=== PATIENT | female | born 1990 ===

== ENCOUNTER 2017-01-14 00:57 | Emergency (ER) | payer MEDICAID ==
[2017-01-14 00:58] VITALS: BMI 44.6
[2017-01-14 01:05] VITALS: RESP 18
[2017-01-14] MEDS ORDERED: Amoxicillin-Clav 875-125 mg Tab PO STA (01:11)
--- NOTE | 2017-01-14 01:15 | ED PDOC ---
Arrival/HPI - General Chief Complaint: Dental Pain Time Seen by Provider: 01/14/17 01:10 Historian: Patient - History of Present Illness Narrative History of Present Illness (Text): 01/14/17 01:12 Lauren Vela is a 26 year old female, with a history of asthma, presents to the emergency department complaining of 1 day duration of right upper toothache with right sided facial swelling. Patient does not have an appointment with dentist until next week. Denies any fever, chills, headache, dizziness, nausea, vomiting, urinary symptoms, or any other complaints at this time. Time/Duration: Other (1 day ) Symptom Onset: Gradual Symptom Course: Worsening Severity Level: Mild Activities at Onset: Light Past Medical History - Provider Review Nursing Documentation Reviewed: Yes - Past History Past History: Non-Contributing - Infectious Disease Hx of Infectious Diseases: None - Tetanus Immunization Tetanus Immunization: Unknown - Cardiac Hx Cardiac Disorders: No - Pulmonary Hx Respiratory Disorders: Yes Hx Asthma: Yes Hx Bronchitis: Yes - Neurological Hx Neurological Disorder: Yes Hx Migraine: Yes - HEENT Hx HEENT Disorder: No - Renal Hx Renal Disorder: No - Endocrine/Metabolic Hx Endocrine Disorders: No - Hematological/Oncological Hx Blood Disorders: No - Integumentary Hx Dermatological Disorder: No - Musculoskeletal/Rheumatological Hx Musculoskeletal Disorders: Yes Hx Back Pain: Yes Hx Falls: No - Gastrointestinal Hx Gastrointestinal Disorders: Yes (gallstones) Hx Gall Bladder Disease: Yes (CHOLECYSTECTOMY) - Genitourinary/Gynecological Hx Genitourinary Disorders: Yes (fibroid uterus) - Psychiatric Hx Psychophysiologic Disorder: No Hx Substance Use: No - Past Surgical History Past Surgical History: No Previous - Surgical History Hx Cholecystectomy: Yes (within the last 5 years) - Anesthesia Hx Anesthesia: Yes Hx Anesthesia Reactions: No Hx Malignant Hyperthermia: No - Suicidal Assessment Feels Threatened In Home Enviroment: No Family/Social History - Physician Review Nursing Documentation Reviewed: Yes Family/Social History: No Known Family HX Smoking Status: Light Smoker < 10 Cigarettes Daily Hx Alcohol Use: Yes Frequency of alcohol use: Socially Hx Substance Use: No Hx Substance Use Treatment: No Allergies/Home Meds Allergies/Adverse Reactions: Allergies No Known Allergies Allergy (Verified 09/04/16 18:34) Home Medications: Home Meds Medication Instructions Recorded Confirmed Fluticasone/Salmeterol 250/50 1 inh INH BID 09/04/16 09/04/16 [Advair Diskus 250/50] Physical Exam - Physical Exam Narrative Physical Exam (Text): - Review of Systems Constitutional: Normal. absent: Fatigue, Weight Change, Fevers Eyes: Normal ENT: Right upper toothache, and right facial swelling. Respiratory: Normal absent: SOB, Cough, Sputum Cardiovascular: Normal absent: Chest pain, Palpitations, Syncope Gastrointestinal: Normal absent: Abdominal pain, Diarrhea, Nausea, Vomiting Genitourinary: Normal. absent: Dysuria, Frequency, Hematuria Musculoskeletal: Normal. absent: Arthralgias, Back Pain, Neck Pain Skin: Normal Neurological: Normal absent: Focal Weakness Endocrine: Normal Hemo/Lymphatic: Normal Psychiatric: Normal - Physical exam Patient appears age appropriate, speaking full sentences without difficulty - Systems Exam Head: Present: Atraumatic, Normocephalic, Pupils: Present: PERRL Extraocular Muscles: Present: EOMI Conjunctiva: Present: Normal Mouth: Present: Moist Mucous Membranes. Right upper molar tenderness to palpation. Right facial swelling. No gum inflammation. No Trismus. Neck: Present: Normal Range of Motion. Supple No: MIDLINE TENDERNESS, Paraspinal Tenderness Respiratory/Chest: Present: Clear to Auscultation, Good Air Exchange. No: Respiratory Distress, Accessory Muscle Use, Tachypnic Cardiovascular: Present: Regular Rate and Rhythm, Normal S1, S2, Peripheral Pulses Present. No: Murmurs Abdomen: Present: Normal Bowel Sounds, No: Tenderness, Peritoneal Signs, Rebound, Guarding, Distention Back: Present: Normal Inspection. No: Midline Tenderness, Paraspinal Tenderness Upper Extremity: Present: Normal Inspection. No: Cyanosis, Edema Lower Extremity: Present: Normal Inspection. No: Edema Neurological: Present: GCS=15, Speech Normal, cranial nerves II through XII fully intact with no cerebellar abnormality, neuro-sensory fully intact. No focal neurological deficits. Skin: Present: Warm, Dry, Normal Color. No: Rashes Lymphatic: Present: OX3, NI, NC Psychiatric: Present: Alert, Oriented x 3, Normal Insight, Normal Concentration Vital Signs Reviewed: Yes Vital Signs Temp Pulse Resp BP Pulse Ox 01/14/17 04:07 98.0 F 85 18 107/60 99 01/14/17 01:05 99 F 88 18 144/74 98 Temperature: Afebrile Blood Pressure: Normal Pulse: Regular Respiratory Rate: Normal Appearance: Positive for: Well-Appearing, Non-Toxic, Comfortable Pain Distress: None Mental Status: Positive for: Alert and Oriented X 3 Medical Decision Making ED Course and Treatment: 01/14/17 01:23 Impression: A 26 year old female who presents to the emergency department complaining of 1 day duration right upper toothache and right facial swelling. Differential Diagnosis included but are not limited to: Facial abscess Plan: -- CT Maxillofacial -- Labs -- Augmentin -- Toradol -- Reassess and disposition Progress Notes: 01/14/17 03:43 CT interpreted by: Juan Huerta MD IMPRESSION: Small periodontal abscess. Sinus disease. 01/14/17 04:04 Case discussed with [facility]. 01/14/17 04:[address] Martinez from [facility] in detail, including PE, lab, imaging findings. States pt can f/u in [facility] [place] at 8[place] pt's mom states she can drive her pt states she feels comfortable being dc'd home with outpatient f/u pt states her pain is better Pt states she understands to return to the ER right away for new or worsening symptoms or for inability to f/u with PMD or specialist as instructed. Patient states that she fully agrees with and understands discharge instructions. States that she agrees with the plan and disposition. Verbalized and repeated discharge instructions and plan. I have given the patient opportunity to ask any additional questions. - Lab Interpretations Lab Results: 01/14/17 01:25 01/14/17 01:25 Lab Results 01/14/17 01:25: Sodium 136, Potassium 4.0, Chloride 102, Carbon Dioxide 28, Anion Gap 10, BUN 10, Creatinine 0.6, Est GFR ( Amer) > 60, Est GFR (Non- Af Amer) > 60, Random Glucose 105, Calcium 9.0, Total Bilirubin 0.5, AST 18, ALT 30, Alkaline Phosphatase 74, Total Protein 7.7, Albumin 3.9, Globulin 3.8, Albumin/Globulin Ratio 1.0 L 01/14/17 01:25: PT 11.0, INR 1.02, APTT 31.4 H 01/14/17 01:25: WBC 11.9 H, RBC 4.99, Hgb 13.6, Hct 40.6, MCV 81.4, MCH 27.3, MCHC 33.5, RDW 13.8, Plt Count 337, MPV 8.7, Gran % 65.1, Lymph % (Auto) 25.9, [place] % (Auto) 7.1 H, Eos % (Auto) 1.6, Baso % (Auto) 0.3, Gran # 7.74 H, Lymph # 3.1, [place]ountain # 0.8 H, Eos # 0.2, Baso # 0.03 - RAD Interpretation Narrative RAD Interpretations (Text): EXAM: CT Maxillofacial With Intravenous Contrast FINDINGS: Bones/joints: No fracture. No dislocation. Soft tissues: Moderate to extensive soft tissue swelling/stranding about RIGHT maxilla. Apparent 1.0 x 0.3 x 0.7 cm peripherally enhancing fluid collection along RIGHT maxilla ( axial image 76, coronal image 51). Lymph nodes: Shotty cervical lymph nodes, likely reactive. Orbits: Unremarkable as visualized. Sinuses: Extensive mucosal thickening of RIGHT maxillary sinus. Mild mucosal thickening of LEFT maxillary sinus. Moderate mucosal thickening of ethmoid sinuses. Dental: Dental caries RIGHT maxillary molar, LEFT maxillary molar. IMPRESSION: 1. Small periodontal abscess. 2. Sinus disease. 3. Incidental/non-acute findings are described above Radiology Orders: 01/14/17 01:11 MAXILLOFACIAL W/CONTRAST [CT] Stat Barge Pilot: Radiologist - Medication Orders Current Medication Orders: Sodium Chloride (Sodium Chloride 0.9%) 1,000 mls @ 1,000 mls/hr IV .Q1H STA Stop: 01/14/17 05:02 Last Admin: 01/14/17 04:09 Dose: 1,000 mls/hr Discontinued Medications Amoxicillin/Clavulanate Potassium (Augmentin 875 Mg-125 Mg Tab) 1 tab PO STAT STA PRN Reason: Protocol Stop: 01/14/17 01:12 Last Admin: 01/14/17 01:59 Dose: 1 tab Iohexol (Omnipaque 350 100 Ml) Confirm Administered Dose 350 mg .ROUTE .STK-MED ONE Stop: 01/14/17 02:21 Ketorolac Tromethamine (Toradol) 30 mg IVP STAT STA Stop: 01/14/17 01:12 Last Admin: 01/14/17 01:36 Dose: 30 mg - Scribe Statement The provider has reviewed the documentation as recorded by the Scribe Gretta Muthuraman Provider Kassie Attestation: All medical record entries made by the Kassie were at my direction and personally dictated by me. I have reviewed the chart and agree that the record accurately reflects my personal performance of the history, physical exam, medical decision making, and the department course for this patient. I have also personally directed, reviewed, and agree with the discharge instructions and disposition. Disposition/Present on Arrival - Present on Arrival Any Indicators Present on Arrival: No History of DVT/PE: No History of Uncontrolled Diabetes: No Urinary Catheter: No History of Decub. Ulcer: No History Surgical Site Infection Following: None - Disposition Have Diagnosis and Disposition been Completed?: Yes Diagnosis: Periodontal abscess Disposition: HOME/ ROUTINE Disposition Time: 04:30 Patient Plan: Discharge Condition: GOOD Discharge Instructions (ExitCare): Dental Abscess (ED) Additional Instructions: PLEASE REPORT TO [facility] MAIN ENTRANCE AT 8AM TODAY AND ASK TO BE DIRECTED TO OROMAXILOFACIAL (OMFS) CLINIC RETURN TO THE ER RIGHT AWAY FOR NEW OR WORSENING SYMPTOMS OR IF YOU CANNOT FOLLOW UP INSTRUCTED Prescriptions: Amoxicillin/Clavulanate [Augmentin 875 MG-125 MG] 1 tab PO BID #13 tab oxyCODONE/Acetaminophen [Percocet 5/325 mg Tab] 1 ea PO BID PRN #5 tab PRN Reason: Pain, Moderate (4-7)
[2017-01-14 01:42] LABS: ADD MANUAL DIFF? NO
[2017-01-14 01:46] LABS: BASO # 0.03 K/mm3 (0.0-2.0); BASO % 0.3 % (0.0-3.0); EOS # 0.2 (0.0-0.7); EOS % 1.6 % (1.5-5.0); GRAN # 7.74 (1.4-6.5); GRAN % 65.1 % (50.0-68.0); HEMATOCRIT 40.6 % (36.0-48.0); LYMPH # 3.1 (1.2-3.4); LYMPH % 25.9 % (22.0-35.0); MEAN CELL VOLUME 81.4 fL (80.0-105.0); MEAN CORPUSCULAR HEMOGLOBIN 27.3 pg (25.0-35.0); MEAN CORPUSCULAR HGB CONC 33.5 g/dl (31.0-37.0); MEAN PLATELET VOLUME 8.7 fl (7.0-11.0); MONO # 0.8 (0.1-0.6); MONO % 7.1 % (1.0-6.0); PLATELET COUNT 337 10^3/uL (120.0-450.0); RED CELL DISTRIBUTION WIDTH 13.8 % (11.5-14.5); WHITE BLOOD COUNT 11.9 10^3/ul (4.5-11.0)
[2017-01-14 01:53] LABS: INR 1.02 (0.93-1.08); PARTIAL THROMBOPLASTIN TIME 31.4 Seconds (23.7-30.8)
[2017-01-14 01:58] LABS: ALKALINE PHOSPHATASE 74 U/L (38-133); ALT/SGPT 30 U/L (7-56); AST/SGOT 18 U/L (15-39); BILIRUBIN,TOTAL 0.5 mg/dL (0.2-1.3); BLOOD UREA NITROGEN 10 mg/dL (7-21); CARBON DIOXIDE 28 mmol/L (21-33); CHLORIDE 102 mmol/L (98-107); GFR AFRICAN-AMERICAN > 60; GLUCOSE,RANDOM 105 mg/dL (70-110); SODIUM 136 mmol/L (132-148); TOTAL PROTEIN 7.7 g/dL (5.8-8.3)
[2017-01-14] MEDS ORDERED: Iohexol 350 MG/100 ML VIAL ONE (02:20)
--- NOTE | 2017-01-14 03:14 | CT ---
EXAM: CT Maxillofacial With Intravenous Contrast CLINICAL HISTORY: 26 years old, female; Pain; Jaw pain; Additional info: Dental pain, r. TECHNIQUE: Axial computed tomography images of the face with intravenous contrast. This CT exam was performed using one or more of the following dose reduction techniques: automated exposure control, adjustment of the mA and/or kV according to patient size, and/or use of iterative reconstruction technique. Coronal and sagittal reformatted images were created and reviewed. CONTRAST: 96 mL of OMNI 350 administered intravenously. COMPARISON: CT - HEAD W/O CONTRAST 03/29/2016 10:28:39 PM FINDINGS: Bones/joints: No fracture. No dislocation. Soft tissues: Moderate to extensive soft tissue swelling/stranding about RIGHT maxilla. Apparent 1.0 x 0.3 x 0.7 cm peripherally enhancing fluid collection along RIGHT maxilla (axial image 76, coronal image 51). Lymph nodes: Shotty cervical lymph nodes, likely reactive. Orbits: Unremarkable as visualized. Sinuses: Extensive mucosal thickening of RIGHT maxillary sinus. Mild mucosal thickening of LEFT maxillary sinus. Moderate mucosal thickening of ethmoid sinuses. Dental: Dental caries RIGHT maxillary molar, LEFT maxillary molar. IMPRESSION: 1. Small periodontal abscess. 2. Sinus disease. 3. Incidental/non-acute findings are described above.
[2017-01-14 04:08] VITALS: BP 107/60; PULSE 85; TEMP 98; O2SAT 99
[2017-01-14] MEDS: Sodium Chloride 0.9% 1,000 ML IV STA ×2 (04:09→04:54)
== END 2017-01-14 04:55 | disposition home or self-care (01) ==
LOC: ED 00:57
DX: K05.219 Aggressive periodontitis, localized, unspecified severity (principal); Z72.0 Tobacco use
CPT/HCPCS: 70488; 80053; 85025; 85610; 85730; 96361; 96374; 99283; J1885; J7040; Q9967

== ENCOUNTER 2017-08-10 15:40 | Emergency (ER) | payer OTHER, SELFPAY ==
[2017-08-10 15:41] VITALS: BMI 44.6
[2017-08-10] MEDS ORDERED: Sodium Chloride 0.9% 1,000 ML IV STA (16:26)
[2017-08-10] MEDS ORDERED: Albuterol-Ipratrop 3 mg / 0.5 (3 ml) UD IH STA ×2 (16:28→17:47)
--- NOTE | 2017-08-10 16:32 | ED PDOC ---
Arrival/HPI - General Chief Complaint: Flu-like Symptoms Time Seen by Provider: 08/10/17 15:47 Historian: Patient - History of Present Illness Narrative History of Present Illness (Text): 08/10/17 16:29 27 y/o female, no significant pmh, nkda, chronic smoker, c/o cough/fever/ vomiting started yesterday. Pt. stated that she started with coughing yesterday with bodyache, feels feverish with no objective temperature and noted to be febrile 100.9F in the ER with no antipyretic taken, stated that she had couple episodes of vomiting after forceful vomiting but no abdominal pain, no night sweat, no dizziness, no change in vision, no palpitation, no other medical or psychological complaints, no neck stiffness, no headache, no recent traveling or use of any antibiotic for the past 4 weeks, no other medical or psychological complaints. Past Medical History - Provider Review Nursing Documentation Reviewed: Yes - Past History Past History: Non-Contributing - Infectious Disease Hx of Infectious Diseases: None - Tetanus Immunization Tetanus Immunization: Unknown - Reproductive Menopause: No - Cardiac Hx Cardiac Disorders: No - Pulmonary Hx Respiratory Disorders: Yes Hx Asthma: Yes Hx Bronchitis: Yes - Neurological Hx Neurological Disorder: Yes Hx Migraine: Yes - HEENT Hx HEENT Disorder: No - Renal Hx Renal Disorder: No - Endocrine/Metabolic Hx Endocrine Disorders: No - Hematological/Oncological Hx Blood Disorders: No - Integumentary Hx Dermatological Disorder: No - Musculoskeletal/Rheumatological Hx Musculoskeletal Disorders: Yes Hx Back Pain: Yes Hx Falls: No - Gastrointestinal Hx Gastrointestinal Disorders: Yes (gallstones) Hx Gall Bladder Disease: Yes (CHOLECYSTECTOMY) - Genitourinary/Gynecological Hx Genitourinary Disorders: Yes (fibroid uterus) - Psychiatric Hx Psychophysiologic Disorder: No Hx Substance Use: No - Past Surgical History Past Surgical History: No Previous - Surgical History Hx Cholecystectomy: Yes (within the last 5 years) - Anesthesia Hx Anesthesia: Yes Hx Anesthesia Reactions: No Hx Malignant Hyperthermia: No - Suicidal Assessment Feels Threatened In Home Enviroment: No Family/Social History - Physician Review Nursing Documentation Reviewed: Yes Family/Social History: Unknown Family HX Smoking Status: Light Smoker < 10 Cigarettes Daily Hx Alcohol Use: Yes Hx Substance Use: No Hx Substance Use Treatment: No Allergies/Home Meds Allergies/Adverse Reactions: Allergies No Known Allergies Allergy (Verified 09/04/16 18:34) Home Medications: Home Meds Medication Instructions Recorded Confirmed Fluticasone/Salmeterol 250/50 1 inh INH BID 09/04/16 08/10/17 [Advair Diskus 250/50] Review of Systems - Review of Systems Constitutional: Fevers. absent: Fatigue Eyes: absent: Vision Changes ENT: absent: Hearing Changes Respiratory: Cough. absent: SOB, Sputum, Wheezing Cardiovascular: absent: Chest Pain, Palpitations Gastrointestinal: Vomiting. absent: Abdominal Pain, Diarrhea, Nausea Genitourinary Female: absent: Dysuria Musculoskeletal: Myalgias. absent: Arthralgias, Back Pain, Neck Pain, Joint Swelling Skin: absent: Rash, Pruritis, Skin Lesions Psychiatric: absent: Anxiety, Depression, Suicidal Ideation Physical Exam Vital Signs Reviewed: Yes Vital Signs Temp Pulse Resp BP Pulse Ox 08/10/17 20:18 98.9 F 90 18 128/66 96 08/10/17 18:25 100.9 F H 08/10/17 17:48 99.2 F 74 18 124/71 98 08/10/17 16:13 100.9 F H 76 16 98 Temperature: Febrile Blood Pressure: Normal Pulse: Regular Respiratory Rate: Normal Appearance: Positive for: Well-Appearing, Non-Toxic Pain Distress: Moderate Mental Status: Positive for: Alert and Oriented X 3 - Systems Exam Head: Present: Atraumatic, Normocephalic Pupils: Present: PERRL Extroacular Muscles: Present: EOMI Conjunctiva: Present: Normal Ears: Present: NORMAL TM, Normal Canal. No: Erythema Mouth: Present: Moist Mucous Membranes Pharnyx: No: ERYTHEMA, EXUDATE, TONSILS ENLARGED, Uvular Deviation Nose (External): Present: Atraumatic. No: Abrasion, Contusion Nose (Internal): Present: Normal Inspection, No Active Bleeding. No: Rhinorrhea , Epistaxis Neck: Present: Normal Range of Motion, Trachea Midline. No: Meningeal Signs, MIDLINE TENDERNESS, Lymphadenopathy Respiratory/Chest: Present: Clear to Auscultation, Good Air Exchange, Decreased Breath Sounds (bilaterally). No: Respiratory Distress, Accessory Muscle Use, Wheezes, Rales, Retracting, Rhonchi, Tachypneic, Tender to Palpation Cardiovascular: Present: Regular Rate and Rhythm, Normal S1, S2. No: Murmurs Abdomen: Present: Normal Bowel Sounds. No: Tenderness, Distention, Peritoneal Signs, Rebound, Guarding Back: Present: Normal Inspection Upper Extremity: Present: Normal Inspection. No: Cyanosis, Edema Lower Extremity: Present: Normal Inspection. No: Edema Neurological: Present: GCS=15, Speech Normal, Motor Func Grossly Intact, Gait Normal, Memory Normal Skin: Present: Warm, Dry, Normal Color. No: Rashes Psychiatric: Present: Alert, Oriented x 3, Normal Insight, Normal Concentration Medical Decision Making ED Course and Treatment: 08/10/17 16:33 Differential: Influenza vs. bronchitis vs. pneumonia vs. dehydration vs. electrolyte disturbance vs. UTI -labs/rapid flu -ua -IVF/zofran/tylenol -Observe and reassess 08/10/17 17:39 -Labs are non-significant except wbc 11.9 (+UA, Rocephine IV ordered), magnesium 1.6 (mag sulf IV ordered) -Negative influenza -Chest xray show no active disease 08/10/17 17:48 -Pt. complaining of bodyache, normal bun and creatine, Toradol IV ordered with rocephine. -There is significant improvement with bilateral clear lung to auscultate after 1 dose of duoneb, will order 2nd dose. 08/10/17 20:29 -Prednisone ordered, feels well, wants to go home. -Advised the patient to avoid gym and exercise while taking levaquin as it can causes achilles tendon rupture and prolong QT. Pt. verbally expressed understanding. -Discharge home with levaquin, promtheazine dm, zofran, tylenol, bed rest, follow up with your own pmd within 2 days, return to the ER for any new or worsening signs or symptoms. - Lab Interpretations Lab Results: 08/10/17 17:00 08/10/17 17:00 Lab Results 08/10/17 17:02: Urine Color Yellow, Urine Appearance Sl cloudy, Urine pH 7.0, Ur Specific [place] 1.020, Urine Protein 100 H, Urine Glucose (UA) Negative, Urine Ketones Negative, Urine Blood Large H, Urine Nitrate Negative, Urine Bilirubin Negative, Urine Urobilinogen 0.2, Ur Leukocyte Esterase Negative, Urine RBC Tntc, Urine WBC 5 - 10, Ur Epithelial Cells 4 - 5, Urine Bacteria Mod 08/10/17 17:00: WBC 11.9 H, RBC 5.04, Hgb 13.8, Hct 42.2, MCV 83.7, MCH 27.4, MCHC 32.7, RDW 13.9, Plt Count 333, MPV 9.0, Gran % 86.2 H, Lymph % (Auto) 6.5 L , [place]key % (Auto) 6.9 H, Eos % (Auto) 0.2 L, Baso % (Auto) 0.2, Gran # 10.29 H, Lymph # 0.8 L, Sharkey # 0.8 H, Eos # 0.0, Baso # 0.02 08/10/17 17:00: Sodium 139, Potassium 4.0, Chloride 102, Carbon Dioxide 24, Anion Gap 17, BUN 9, Creatinine 0.7, Est GFR ( Amer) > 60, Est GFR (Non- Af Amer) > 60, Random Glucose 121 H, Calcium 9.2, Magnesium 1.6 L, Total Bilirubin 0.6, AST 35, ALT 33, Alkaline Phosphatase 73, Total Protein 8.2, Albumin 4.1, Globulin 4.1, Albumin/Globulin Ratio 1.0 L, Lipase 37 08/10/17 16:24: Influenza Typ A,B (EIA) Negative for flu a/b - RAD Interpretation Radiology Orders: 08/10/17 16:26 CHEST PORTABLE [RAD] Stat - Medication Orders Current Medication Orders: Discontinued Medications Acetaminophen (Tylenol 325mg Tab) 650 mg PO STAT STA Stop: 08/10/17 16:27 Last Admin: 08/10/17 17:12 Dose: 650 mg MAR Pain/Vitals Document 08/10/17 17:12 EQ (Rec: 08/10/17 17:19 EQ [id number]) Pain Reassessment Is This A Pain ReAssessment? No Sleep Is patient sleeping during reassessment? No Presence of Pain Presence of Pain Yes Albuterol/Ipratropium (Duoneb 3 Mg/0.5 Mg (3 Ml) Ud) 3 ml IH STAT STA Stop: 08/10/17 16:29 Last Admin: 08/10/17 17:19 Dose: 3 ml Albuterol/Ipratropium (Duoneb 3 Mg/0.5 Mg (3 Ml) Ud) 3 ml IH STAT STA Stop: 08/10/17 17:48 Last Admin: 08/10/17 18:48 Dose: 3 ml Sodium Chloride (Sodium Chloride 0.9%) 1,000 mls @ 999 mls/hr IV .Q1H1M STA Stop: 08/10/17 17:26 Last Admin: 08/10/17 17:11 Dose: 999 mls/hr eMAR Start Stop Document 08/10/17 17:11 EQ (Rec: 08/10/17 17:12 EQ [facility] [id number]) Intravenous Solution Start Date 08/10/17 Start Time 17:12 Ceftriaxone Sodium 1 gm/ (Sodium Chloride) 100 mls @ 200 mls/hr IVPB ONCE ONE Stop: 08/10/17 18:14 Last Admin: 08/10/17 18:48 Dose: 200 mls/hr eMAR Start Stop Document 08/10/17 18:48 EQ (Rec: 08/10/17 18:48 EQ [facility] [id number]) Intravenous Solution Start Date 08/10/17 Start Time 18:48 Magnesium Sulfate/Dextrose (Magnesium Sulfate 1 Gm/100 Ml D5w) 1 gm in 100 mls @ 100 mls/hr IVPB ONCE ONE Stop: 08/10/17 18:34 Ketorolac Tromethamine (Toradol) 30 mg IVP STAT STA Stop: 08/10/17 17:48 Last Admin: 08/10/17 18:48 Dose: 30 mg MAR Pain Assessment Document 08/10/17 18:48 EQ (Rec: 08/10/17 18:48 EQ [facility] [id number]) Pain Reassessment Is this a pain reassessment? No Sleep Is patient sleeping during reassessment? No Presence of Pain Presence of Pain Yes IVP Administration Document 08/10/17 18:48 EQ (Rec: 08/10/17 18:48 EQ [facility] [id number]) Charges for Administration # of IVP Administrations 1 Ondansetron HCl (Zofran Inj) 4 mg IVP STAT STA Stop: 08/10/17 16:29 Last Admin: 08/10/17 17:19 Dose: 4 mg IVP Administration Document 08/10/17 17:19 EQ (Rec: 08/10/17 17:19 EQ [facility] [id number]) Charges for Administration # of IVP Administrations 1 - PA / HYDROMETER CALIBRATOR / Resident Statement MD/DO has reviewed & agrees with the documentation as recorded. Disposition/Present on Arrival - Present on Arrival Any Indicators Present on Arrival: No History of DVT/PE: No History of Uncontrolled Diabetes: No Urinary Catheter: No History of Decub. Ulcer: No History Surgical Site Infection Following: None - Disposition Have Diagnosis and Disposition been Completed?: Yes Diagnosis: Bronchitis, Urinary tract infection Disposition: HOME/ ROUTINE Disposition Time: 20:32 Patient Plan: Discharge Condition: IMPROVED Additional Instructions: -Discharge home with levaquin, promtheazine dm, zofran, tylenol, bed rest, follow up with your own pmd within 2 days, return to the ER for any new or worsening signs or symptoms. Prescriptions: Acetaminophen [Tylenol 325mg tab] 2 tab PO QID PRN #30 tab PRN Reason: Other Levofloxacin [Levaquin] 750 mg PO DAILY #5 tablet Ondansetron [Zofran] 4 mg PO Q8H PRN #12 tab PRN Reason: Other Promethazine DM [Phenergan DM Syrup] 5 ml PO QID PRN #250 ml PRN Reason: Other Referrals: [facility] [Outside] - Follow up with primary Forms: WORK NOTE
[2017-08-10 17:09] LABS: URINE BILIRUBIN NEGATIVE (NEGATIVE); URINE BLOOD LARGE (NEGATIVE); URINE GLUCOSE (UA) NEGATIVE (NEGATIVE); URINE KETONE NEGATIVE (NEGATIVE); URINE LEUKOCYTE ESTERASE NEGATIVE Leu/uL (NEGATIVE); URINE PROTEIN 100 mg/dL (<30 mg/dL); URINE UROBILINOGEN 0.2 E.U./dL (<1 E.U./dL)
[2017-08-10 17:14] LABS: URINE APPEARANCE SL CLOUDY (CLEAR); URINE COLOR YELLOW (YELLOW)
[2017-08-10 17:29] LABS: URINE RBC TNTC /hpf (0-2)
[2017-08-10 17:30] LABS: URINE BACTERIA MOD (NEG)
[2017-08-10 17:30] LABS: ALKALINE PHOSPHATASE 73 U/L (38-126); ALT/SGPT 33 U/L (7-56); AST/SGOT 35 U/L (14-36); BILIRUBIN,TOTAL 0.6 mg/dL (0.2-1.3); BLOOD UREA NITROGEN 9 mg/dL (7-21); CALCIUM 9.2 mg/dL (8.4-10.5); CARBON DIOXIDE 24 mmol/L (21-33); CHLORIDE 102 mmol/L (98-107); GFR AFRICAN-AMERICAN > 60; GLUCOSE,RANDOM 121 mg/dL (70-110); LIPASE 37 U/L (23-300); MAGNESIUM 1.6 mg/dL (1.7-2.2); SODIUM 139 mmol/L (132-148); TOTAL PROTEIN 8.2 g/dL (5.8-8.3)
[2017-08-10 17:32] LABS: BASO # 0.02 K/mm3 (0.0-2.0); BASO % 0.2 % (0.0-3.0); EOS % 0.2 % (1.5-5.0); GRAN # 10.29 (1.4-6.5); GRAN % 86.2 % (50.0-68.0); HEMATOCRIT 42.2 % (36.0-48.0); LYMPH # 0.8 (1.2-3.4); LYMPH % 6.5 % (22.0-35.0); MEAN CELL VOLUME 83.7 fl (80.0-105.0); MEAN CORPUSCULAR HEMOGLOBIN 27.4 pg (25.0-35.0); MEAN CORPUSCULAR HGB CONC 32.7 g/dl (31.0-37.0); MONO # 0.8 (0.1-0.6); MONO % 6.9 % (1.0-6.0); RED CELL DISTRIBUTION WIDTH 13.9 % (11.5-14.5); WHITE BLOOD COUNT 11.9 10^3/ul (4.5-11.0)
[2017-08-10] MEDS ORDERED: Magnesium Sulfate 1 gm in D5W 1 GM/100 ML BAG IVPB ONE (17:35)
[2017-08-10] MEDS ORDERED: cefTRIAXone 1 gm 1 GM/100 ML BAG IVPB SCH (17:45)
[2017-08-10 17:48] VITALS: RESP 18
[2017-08-10 20:19] VITALS: BP 128/66; PULSE 90; TEMP 98.9; O2SAT 96
--- NOTE | 2017-08-11 15:27 | RAD ---
HISTORY: cough and fever with vomit COMPARISON: 05/07/2016 FINDINGS: LUNGS: No active pulmonary disease. PLEURA: No significant pleural effusion identified, no pneumothorax apparent. CARDIOVASCULAR: Normal. OSSEOUS STRUCTURES: No significant abnormalities. VISUALIZED UPPER ABDOMEN: Normal. OTHER FINDINGS: None. IMPRESSION: No active disease.
== END 2017-08-10 21:30 | disposition home or self-care (01) ==
LOC: ED 15:40
DX: J40 Bronchitis, not specified as acute or chronic (principal); N39.0 Urinary tract infection, site not specified; F17.210 Nicotine dependence, cigarettes, uncomplicated
CPT/HCPCS: 71010; 80053; 81001; 83690; 83735; 85025; 87086; 87181; 87804; 96374; 96375; 99284; J0696; J1885; J2405; J3475; J7040

== ENCOUNTER 2018-08-25 09:12 | Inpatient (IN) | payer OTHER ==
[2018-08-25] MEDS ORDERED: Sodium Chloride 0.9% 1,000 ML IV STA ×2 (09:42→13:06)
[2018-08-25] MEDS ORDERED: Morphine 4 mg/ml ISec IVP STA ×2 (09:42→13:06)
[2018-08-25 10:51] LABS: BASO # 0.03 K/mm3 (0.0-2.0); BASO % 0.2 % (0.0-3.0); EOS # 0.1 (0.0-0.7); EOS % 0.9 % (1.5-5.0); GRAN # 11.22 (1.4-6.5); GRAN % 77.2 % (50.0-68.0); HEMOGLOBIN 13.9 g/dL (12.0-16.0); LYMPH # 2.5 (1.2-3.4); LYMPH % 17.2 % (22.0-35.0); MEAN CORPUSCULAR HEMOGLOBIN 27.4 pg (25.0-35.0); MEAN CORPUSCULAR HGB CONC 32.6 g/dl (31.0-37.0); MEAN PLATELET VOLUME 9.3 fl (7.0-11.0); MONO # 0.7 (0.1-0.6); MONO % 4.5 % (1.0-6.0); RBC 5.07 10^6/uL (3.5-6.1); RED CELL DISTRIBUTION WIDTH 13.9 % (11.5-14.5); WHITE BLOOD COUNT 14.5 10^3/uL (4.5-11.0)
[2018-08-25 10:54] LABS: ALT/SGPT 20 U/L (7-56); AMYLASE 58 U/L (35-125); AST/SGOT 24 U/L (14-36); BLOOD UREA NITROGEN 8 mg/dL (7-21); GFR NON-AFRICAN AMERICAN > 60; LIPASE 25 U/L (23-300)
[2018-08-25] MEDS ORDERED: Iohexol 350 MG/100 ML VIAL ONE (10:59)
[2018-08-25 11:00] LABS: PH,URINE 6.5 (4.7-8.0); URINE BILIRUBIN NEGATIVE (NEGATIVE); URINE BLOOD LARGE (NEGATIVE); URINE GLUCOSE (UA) NEGATIVE (NEGATIVE); URINE LEUKOCYTE ESTERASE NEGATIVE Leu/uL (NEGATIVE); URINE PROTEIN 100 mg/dL (<30 mg/dL); URINE UROBILINOGEN 0.2 E.U./dL (<1 E.U./dL)
[2018-08-25 11:03] LABS: URINE APPEARANCE SL CLOUDY (CLEAR); URINE COLOR YELLOW (YELLOW)
[2018-08-25 11:10] LABS: URINE BACTERIA MANY /hpf; URINE RBC TNTC /hpf (0-2); URINE WBC 0 - 2 /hpf (0-6)
[2018-08-25 11:12] LABS: URINE AMORPHOUS SEDIMENT FEW /hpf
--- NOTE | 2018-08-25 11:24 | ED PDOC ---
Arrival/HPI - General Chief Complaint: Abdominal Pain Time Seen by Provider: 08/25/18 09:31 Historian: Patient - History of Present Illness Narrative History of Present Illness (Text): 08/25/18 9:42 28 year old female, with past medical history of asthma, presents to the ED complaining of abdominal pain and back pain associated with nausea since 3 days. Patient informs 2 episodes of vomiting yesterday but none today. Patient denies any other associated somatic complaints. Patient denies any fevers, chills, headache, dizziness, chest pain, shortness of breath, dyspnea on exertion, cough, diarrhea, hematuria, dysuria, neck pain, or any other complaints. Time/Duration: < week Symptom Onset: Gradual Symptom Course: Unchanged Quality: Aching Activities at Onset: Light Context: Home Past Medical History - Provider Review Nursing Documentation Reviewed: Yes - Past History Past History: Non-Contributing - Infectious Disease Hx of Infectious Diseases: None - Tetanus Immunization Tetanus Immunization: Unknown - Cardiac Hx Cardiac Disorders: No - Pulmonary Hx Respiratory Disorders: Yes Hx Asthma: Yes Hx Bronchitis: Yes - Neurological Hx Neurological Disorder: Yes Hx Migraine: Yes - HEENT Hx HEENT Disorder: No - Renal Hx Renal Disorder: No - Endocrine/Metabolic Hx Endocrine Disorders: No - Hematological/Oncological Hx Blood Disorders: No - Integumentary Hx Dermatological Disorder: No - Musculoskeletal/Rheumatological Hx Musculoskeletal Disorders: Yes Hx Back Pain: Yes Hx Falls: No - Gastrointestinal Hx Gastrointestinal Disorders: Yes (gallstones) Hx Gall Bladder Disease: Yes (CHOLECYSTECTOMY) - Genitourinary/Gynecological Hx Genitourinary Disorders: Yes (fibroid uterus) - Psychiatric Hx Psychophysiologic Disorder: No Hx Substance Use: No - Past Surgical History Past Surgical History: No Previous - Surgical History Hx Cholecystectomy: Yes (within the last 5 years) - Anesthesia Hx Anesthesia: Yes Hx Anesthesia Reactions: No Hx Malignant Hyperthermia: No - Suicidal Assessment Feels Threatened In Home Enviroment: No Family/Social History - Physician Review Nursing Documentation Reviewed: Yes Family/Social History: Unknown Family HX Smoking Status: Light Smoker < 10 Cigarettes Daily Hx Alcohol Use: Yes Hx Substance Use: No Hx Substance Use Treatment: No Allergies/Home Meds Allergies/Adverse Reactions: Allergies No Known Allergies Allergy (Verified 08/25/18 14:28) Home Medications: Home Meds Medication Instructions Recorded Confirmed Fluticasone/Salmeterol 250/50 1 inh INH BID 09/04/16 08/25/18 [Adv Diskus 250/50] Review of Systems - Physician Review All systems were reviewed & negative as marked: Yes - Review of Systems Constitutional: absent: Fevers Respiratory: absent: SOB, Cough Cardiovascular: absent: Chest Pain Gastrointestinal: Abdominal Pain, Nausea, Vomiting. absent: Diarrhea, Hematochezia, Hematemesis Genitourinary Female: absent: Frequency, Hematuria Musculoskeletal: Back Pain. absent: Neck Pain Skin: absent: Rash Neurological: absent: Headache, Dizziness Physical Exam Vital Signs Reviewed: Yes Vital Signs Temp Pulse Resp BP Pulse Ox 08/25/18 09:13 98.5 F 86 18 125/85 94 L Temperature: Afebrile Blood Pressure: Normal Pulse: Regular Respiratory Rate: Normal Appearance: Positive for: Well-Appearing, Non-Toxic, Comfortable Pain Distress: Mild Mental Status: Positive for: Alert and Oriented X 3 - Systems Exam Head: Present: Atraumatic, Normocephalic Pupils: Present: PERRL Extroacular Muscles: Present: EOMI Conjunctiva: Present: Normal Neck: Present: Normal Range of Motion Respiratory/Chest: Present: Clear to Auscultation, Good Air Exchange. No: Respiratory Distress, Accessory Muscle Use Cardiovascular: Present: Regular Rate and Rhythm, Normal S1, S2. No: Murmurs Abdomen: Present: Tenderness (Diffuse abdominal tenderness ), Normal Bowel Sounds, Hernias (Mid-abdominal wall reducible soft hernia noted). No: Distention, Peritoneal Signs Back: Present: Normal Inspection Upper Extremity: Present: Normal Inspection. No: Cyanosis, Edema Lower Extremity: Present: Normal Inspection. No: Edema Neurological: Present: GCS=15, CN II-XII Intact, Speech Normal Skin: Present: Warm, Dry, Normal Color. No: Rashes Psychiatric: Present: Alert, Oriented x 3, Normal Insight, Normal Concentration Medical Decision Making ED Course and Treatment: 08/25/18 9:43 Impression: 28 year old female presents to the ED for evaluation of nausea, vomiting, abdominal pain and back pain since 3 days. Plan: -- CT of Abdomen/Pelvis -- Pepcid -- Morphine -- Zofran -- IV Fluids -- Urine Culture -- Reassess and disposition Prior Visits: Notes and results from previous visits were reviewed. Progress Notes: CT of Abdomen/Pelvis reviewed by radiologist, shows: Bowel containing ventral hernia with evidence of large bowel obstruction involving the right and proximal transverse colon. Correlate clinically. Large bilateral adnexal masses may reflect exophytic fundal fibroids. Recommend outpatient pelvic ultrasound or MRI for further evaluation if indicated. Cholecystectomy. Hepatomegaly. 4 mm subpleural right lower lobe pulmonary nodule. Additional incidental findings as above. 08/25/18 13:19 vice president payment consulted regarding positive CT of Abdomen finding. On reassessment, patient informs increased pain. Will order more pain medication. 08/25/18 14:09 vice president payment evaluated patient at bedside. Patient will be admitted under Dr. Tobar service. - Lab Interpretations Lab Results: 08/25/18 10:25 08/25/18 10:25 Lab Results 08/25/18 10:25: Urine Color Yellow, Urine Appearance Sl cloudy, Urine pH 6.5, Ur Specific [place] 1.025, Urine Protein 100 H, Urine Glucose (UA) Negative, Urine Ketones Negative, Urine Blood Large H, Urine Nitrate Negative, Urine Bilirubin Negative, Urine Urobilinogen 0.2, Ur Leukocyte Esterase Negative, Urine RBC Tntc H, Urine WBC 0 - 2, Ur Epithelial Cells 6 - 8 H, Amorphous Sediment Few, Urine Bacteria Many, Urine Other Fiber 08/25/18 10:25: Sodium 137, Potassium 4.3, Chloride 103, Carbon Dioxide 24, Anion Gap 14, BUN 8, Creatinine 0.5 L, Est GFR ( Amer) > 60, Est GFR (Non-Af Amer) > 60, Random Glucose 139 H, Calcium 9.0, Magnesium 1.8, Total Bilirubin 0.4, AST 24, ALT 20, Alkaline Phosphatase 89, Total Protein 8.0, Albumin 4.0, Globulin 4.0, Albumin/Globulin Ratio 1.0 L, Amylase 58, Lipase 25 08/25/18 10:25: WBC 14.5 H, RBC 5.07, Hgb 13.9, Hct 42.6, MCV 84.0, MCH 27.4, MCHC 32.6, RDW 13.9, Plt Count 369, MPV 9.3, Gran % 77.2 H, Lymph % (Auto) 17.2 L, [place] % (Auto) 4.5, Eos % (Auto) 0.9 L, Baso % (Auto) 0.2, Gran # 11.22 H, Lymph # (Auto) 2.5, [place] # (Auto) 0.7 H, Eos # (Auto) 0.1, Baso # (Auto) 0.03 - RAD Interpretation Radiology Orders: 08/25/18 09:43 ABD & PELVIS IV CONTRAST ONLY [CT] Stat Hospital Admissions Clerk: Radiologist - Medication Orders Current Medication Orders: Discontinued Medications Famotidine (Pepcid) 20 mg IVP STAT STA Stop: 08/25/18 09:43 Last Admin: 08/25/18 10:24 Dose: 20 mg IVP Administration Document 08/25/18 10:24 EB (Rec: 08/25/18 10:24 [id number] Charges for Administration # of IVP Administrations 1 Sodium Chloride (Sodium Chloride 0.9%) 1,000 mls @ 1,000 mls/hr IV .Q1H STA Stop: 08/25/18 10:41 Last Admin: 08/25/18 10:24 Dose: 1,000 mls/hr eMAR Start Stop Document 08/25/18 10:24 EB (Rec: 08/25/18 10:24 [id number] Intravenous Solution Start Date 08/25/18 Start Time 10:24 End Date 08/25/18 End time 11:24 Total Infusion Time 60 Morphine Sulfate (Morphine) 2 mg IVP STAT STA Stop: 08/25/18 09:43 Last Admin: 08/25/18 10:23 Dose: 2 mg MAR Pain Assessment Document 08/25/18 10:23 EB (Rec: 08/25/18 10:23 [id number] Pain Reassessment Is this a pain reassessment? No Sleep Is patient sleeping during reassessment? No Presence of Pain Presence of Pain Yes Pain Scale Used Protocol: PSCALES Pain Scale Used Numeric Description Intensity of Pain at present 7 IVP Administration Document 08/25/18 10:23 EB (Rec: 08/25/18 10:23 [id number] Charges for Administration # of IVP Administrations 1 Ondansetron HCl (Zofran Inj) 4 mg IVP STAT STA Stop: 08/25/18 09:43 Last Admin: 08/25/18 10:24 Dose: 4 mg IVP Administration Document 08/25/18 10:24 EB (Rec: 08/25/18 10:24 EB [id number]) Charges for Administration # of IVP Administrations 1 - Scribe Statement The provider has reviewed the documentation as recorded by the Scribe Speedy James. All medical record entries made by the Frankieibe were at my direction and personally dictated by me. I have reviewed the chart and agree that the record accurately reflects my personal performance of the history, physical exam, medical decision making, and the department course for this patient. I have also personally directed, reviewed, and agree with the discharge instructions and disposition. Disposition/Present on Arrival - Present on Arrival Any Indicators Present on Arrival: No History of DVT/PE: No History of Uncontrolled Diabetes: No Urinary Catheter: No History of Decub. Ulcer: No History Surgical Site Infection Following: None - Disposition Have Diagnosis and Disposition been Completed?: Yes Diagnosis: Large bowel obstruction Disposition: HOSPITALIZED Disposition Time: 12:45 Condition: GOOD
--- NOTE | 2018-08-25 13:03 | CT ---
Date of service: 08/25/2018 PROCEDURE: CT Abdomen and Pelvis with contrast HISTORY: abdominal pain with abd. hernia - r/o obstruction COMPARISON: Abdomen CT without contrast performed 11/26/16, CT of the abdomen and pelvis with contrast performed 10/15/16 TECHNIQUE: Contrast dose: 100 mL Omnipaque 350 Radiation dose: Total exam DLP = 919.53 mGy-cm. This CT exam was performed using one or more of the following dose reduction techniques: Automated exposure control, adjustment of the mA and/or kV according to patient size, and/or use of iterative reconstruction technique. FINDINGS: LOWER THORAX: No visible consolidation, pleural effusion, or pneumothorax. 4 mm right subpleural nodule, lower lobe (series 5, image 2). LIVER: Hepatomegaly. GALLBLADDER AND BILE DUCTS: Cholecystectomy. PANCREAS: Unremarkable. SPLEEN: Unremarkable. ADRENALS: Unremarkable. KIDNEYS AND URETERS: The kidneys enhance symmetrically. No hydronephrosis or obstructing calculus identified. VASCULATURE: No aortic aneurysm. No atherosclerotic calcification or mural plaque present. BOWEL: Stomach is nondistended. Ventral abdominal hernia containing fat and bowel measures approximately 3.6 cm in transverse dimension. Additional adjacent fat containing ventral hernia. Large amount of feces is noted within the right and proximal transverse colon to the point of hernia without significant fecal material evident in the distal transverse and left colon. Appearance consistent with large bowel obstruction. Lack of oral contrast limits evaluation for bowel pathology. APPENDIX: The appendix appears within normal limits of caliber. No secondary signs of acute appendicitis. PERITONEUM: No significant free fluid. No definite free air. LYMPH NODES: No bulky adenopathy identified. BLADDER: Unremarkable. REPRODUCTIVE: Uterus is present. 3.3 x 3.1 cm left adnexal mass and 7.7 x 8.4 cm right adnexal mass may reflect exophytic fundal fibroids. BONES: Bilateral L5 spondylolysis. OTHER FINDINGS: None. IMPRESSION: Bowel containing ventral hernia with evidence of large bowel obstruction involving the right and proximal transverse colon. Correlate clinically. Large bilateral adnexal masses may reflect exophytic fundal fibroids. Recommend outpatient pelvic ultrasound or MRI for further evaluation if indicated. Cholecystectomy. Hepatomegaly. 4 mm subpleural right lower lobe pulmonary nodule. Additional incidental findings as above.
--- NOTE | 2018-08-25 13:18 | CP.PCM.CON ---
History of Present Illness - History of Present Illness History of Present Illness: Stiven Villegas, PGY1 Surgery Consult Note for Dr. Tobar Patient is a 28 y/o F with PMHX of asthma who presents to the ED complaining of abdominal pain associated with nausea and vomiting for 3 days in duration. Patient has an abdominal ventral hernia. In the ED, CT abdomen with contrast showed ventral hernia with LBO in the right and proximal transverse colon and evidence of cholecystectomy and hepatomegaly. Vital signs stable. WBC 14.5. UA +blood. Surgery was consulted for evaluation of hernia. Patient was seen and examined in the ED. She said that she had this hernia for many years now however it has gotten bigger and her abdominal pain has been much worse for the past 3 days. Endorses constipation, nausea and non-bilious and non-bloody vomiting. Last bowel movement was this morning. She has some difficulty passing flatus. Patient mentions that she previously had a cholecystectomy a few years ago by Dr. Tobar in the past. PMHx: asthma PSHx: cholecystectomy Meds: see MAR Allergies: NKDA FamHx: non-contributory Review of Systems - Review of Systems All systems: reviewed and no additional remarkable complaints except (as per HPI) Past Patient History - Infectious Disease Hx of Infectious Diseases: None - Tetanus Immunizations Tetanus Immunization: Unknown - Past Social History Smoking Status: Light Smoker < 10 Cigarettes Daily - CARDIAC Hx Cardiac Disorders: No - PULMONARY Hx Respiratory Disorders: Yes Hx Asthma: Yes Hx Bronchitis: Yes - NEUROLOGICAL Hx Neurological Disorder: Yes Hx Migraine: Yes - HEENT Hx HEENT Problems: No - RENAL Hx Chronic Kidney Disease: No - ENDOCRINE/METABOLIC Hx Endocrine Disorders: No - HEMATOLOGICAL/ONCOLOGICAL Hx Blood Disorders: No - INTEGUMENTARY Hx Dermatological Problems: No - MUSCULOSKELETAL/RHEUMATOLOGICAL Hx Musculoskeletal Disorders: Yes Hx Back Pain: Yes Hx Falls: No - GASTROINTESTINAL Hx Gastrointestinal Disorders: Yes (gallstones) Hx Gall Bladder Disease: Yes (CHOLECYSTECTOMY) - GENITOURINARY/GYNECOLOGICAL Hx Genitourinary Disorders: Yes (fibroid uterus) - PSYCHIATRIC Hx Psychophysiologic Disorder: No Hx Substance Use: No - SURGICAL HISTORY Hx Cholecystectomy: Yes (within the last 5 years) - ANESTHESIA Hx Anesthesia: Yes Hx Anesthesia Reactions: No Hx Malignant Hyperthermia: No Meds Allergies/Adverse Reactions: Allergies Allergy/AdvReac Type Severity Reaction Status Date / Time No Known Allergies Allergy Verified 08/25/18 14:28 - Medications Medications: Current Medications Sodium Chloride (Sodium Chloride 0.9%) 1,000 mls @ 999 mls/hr IV .Q1H1M STA Stop: 08/25/18 14:06 Physical Exam - Constitutional Appears: No Acute Distress - Head Exam Head Exam: ATRAUMATIC, NORMAL INSPECTION, NORMOCEPHALIC - Eye Exam Eye Exam: EOMI, Normal appearance Pupil Exam: NORMAL ACCOMODATION - ENT Exam ENT Exam: Mucous Membranes Moist - Respiratory Exam Respiratory Exam: Clear to Auscultation Bilateral. absent: Chest Wall Tenderness, Rales, Rhonchi, Wheezes - Cardiovascular Exam Cardiovascular Exam: RRR, +S1, +S2 - GI/Abdominal Exam GI & Abdominal Exam: Normal Bowel Sounds, Organomegaly (hepatomegaly), Soft, Tenderness (Significan tenderness to palpation at the hernia site. ). absent: Distended, Firm, Pulsatile Mass, Rebound Additional comments: Partially reducible ventral hernia while patient was in Trendelenburg position. - Extremities Exam Extremities exam: Positive for: normal inspection - Neurological Exam Neurological exam: Alert, CN II-XII Intact, Oriented x3, Reflexes Normal - Skin Skin Exam: Dry, Intact, Normal Color, Warm Results - Vital Signs Recent Vital Signs: Last Vital Signs Temp 98.5 F 08/25/18 09:13 Pulse 80 08/25/18 12:30 Resp 19 08/25/18 12:30 BP 127/67 08/25/18 12:30 Pulse Ox 97 08/25/18 12:30 - Labs Result Diagrams: 08/25/18 10:25 08/25/18 10:25 Labs: Laboratory Results - last 24 hr 08/25/18 08/25/18 08/25/18 10:25 10:25 10:25 WBC 14.5 H RBC 5.07 Hgb 13.9 Hct 42.6 MCV 84.0 MCH 27.4 MCHC 32.6 RDW 13.9 Plt Count 369 MPV 9.3 Gran % 77.2 H Lymph % (Auto) 17.2 L [place] % (Auto) 4.5 Eos % (Auto) 0.9 L Baso % (Auto) 0.2 Gran # 11.22 H Lymph # (Auto) 2.5 [place] # (Auto) 0.7 H Eos # (Auto) 0.1 Baso # (Auto) 0.03 Sodium 137 Potassium 4.3 Chloride 103 Carbon Dioxide 24 Anion Gap 14 BUN 8 Creatinine 0.5 L Est GFR ( Amer) > 60 Est GFR (Non-Af Amer) > 60 Random Glucose 139 H Calcium 9.0 Magnesium 1.8 Total Bilirubin 0.4 AST 24 ALT 20 Alkaline Phosphatase 89 Total Protein 8.0 Albumin 4.0 Globulin 4.0 Albumin/Globulin Ratio 1.0 L Amylase 58 Lipase 25 Urine Color Yellow Urine Appearance Sl cloudy Urine pH 6.5 Ur Specific [place] 1.025 Urine Protein 100 H Urine Glucose (UA) Negative Urine Ketones Negative Urine Blood Large H Urine Nitrate Negative Urine Bilirubin Negative Urine Urobilinogen 0.2 Ur Leukocyte Esterase Negative Urine RBC Tntc H Urine WBC 0 - 2 Ur Epithelial Cells 6 - 8 H Amorphous Sediment Few Urine Bacteria Many Urine Other Fiber Assessment & Plan - Assessment and Plan (Free Text) Assessment: Patient is a 28 y/o F with LBO secondary to ventral hernia Plan: - Plan for ventral hernia repair with Dr. Tobar, given that hernia is partially reducible and patient is symptomatic. Consent for OR was obtained. - Keep patient NPO - c/w pain control - c/w zofran for nausea - Further recommendations as per Dr. Tobar
[2018-08-25] MEDS ORDERED: HYDROmorphone 1 mg/ml ISec IVP STA (13:59)
[2018-08-25] MEDS ORDERED: Piperacill/Tazo 4.5gm in NS 4.5 GM/100 ML BAG IVPB STA (14:03)
[2018-08-25 16:27] VITALS: BMI 46.5
[2018-08-25] MEDS ORDERED: Pneumococcal 23-Valent Vaccine IM ONE (16:27)
[2018-08-25] MEDS ORDERED: Influenza Vaccine 60 mcg/0.5 mL SYR (4YR UP) IM ONE (16:27)
--- NOTE | 2018-08-25 17:00 | CP.PCM.HP ---
History of Present Illness - History of Present Illness History of Present Illness: Surgery H&P- Dr. Tobar Patient is a 28 y/o F with PMHX of asthma who presents to the ED complaining of abdominal pain associated with nausea and vomiting for 3 days in duration. Patient has an abdominal ventral hernia. In the ED, CT abdomen with contrast showed ventral hernia with LBO in the right and proximal transverse colon and evidence of cholecystectomy and hepatomegaly. Vital signs stable. WBC 14.5. UA +blood. Surgery was consulted for evaluation of hernia. Patient was seen and examined in the ED. She said that she had this hernia for many years now however it has gotten bigger and her abdominal pain has been much worse for the past 3 days. Endorses constipation, nausea and non-bilious and non-bloody vomiting. Last bowel movement was this morning. She has some difficulty passing flatus. Patient mentions that she previously had a cholecystectomy a few years ago by Dr. Tobar in the past. PMHx: asthma PSHx: cholecystectomy 2012 Meds: see MAR Allergies: NKDA FamHx: non-contributory 12 pt ROS conducted, negative otherwise stated above Present on Admission - Present on Admission Any Indicators Present on Admission: No Review of Systems - Review of Systems All systems: reviewed and no additional remarkable complaints except - Constitutional Constitutional: As Per HPI Past Patient History - Infectious Disease Hx of Infectious Diseases: None - Tetanus Immunizations Tetanus Immunization: Unknown - Past Social History Smoking Status: Current Some Days Smoker - CARDIAC Hx Cardiac Disorders: No - PULMONARY Hx Respiratory Disorders: Yes Hx Asthma: Yes Hx Bronchitis: Yes - NEUROLOGICAL Hx Neurological Disorder: Yes Hx Migraine: Yes - HEENT Hx HEENT Problems: No - RENAL Hx Chronic Kidney Disease: No - ENDOCRINE/METABOLIC Hx Endocrine Disorders: No - HEMATOLOGICAL/ONCOLOGICAL Hx Blood Disorders: No (H/O HEMATEMESIS.) - INTEGUMENTARY Hx Dermatological Problems: Yes (TATTOOS,PIERCINGS.) - MUSCULOSKELETAL/RHEUMATOLOGICAL Hx Musculoskeletal Disorders: Yes Hx Back Pain: Yes Hx Falls: No - GASTROINTESTINAL Hx Gastrointestinal Disorders: Yes (gallstones,VENTAL HERNIA,GASTROENTERITIS) Hx Gall Bladder Disease: Yes (CHOLECYSTECTOMY) - GENITOURINARY/GYNECOLOGICAL Hx Genitourinary Disorders: Yes (fibroid uterus) Hx Urinary Tract Infection: Yes - PSYCHIATRIC Hx Psychophysiologic Disorder: No Hx Substance Use: No - SURGICAL HISTORY Hx Surgeries: Yes Hx Cholecystectomy: Yes (within the last 5 years) - ANESTHESIA Hx Anesthesia: Yes Hx Anesthesia Reactions: No Hx Malignant Hyperthermia: No Meds Allergies/Adverse Reactions: Allergies Allergy/AdvReac Type Severity Reaction Status Date / Time No Known Allergies Allergy Verified 08/25/18 14:28 Physical Exam - Constitutional Appears: Non-toxic, No Acute Distress - Head Exam Head Exam: ATRAUMATIC - Eye Exam Eye Exam: EOMI. absent: Scleral icterus - ENT Exam ENT Exam: Mucous Membranes Moist - Cardiovascular Exam Cardiovascular Exam: REGULAR RHYTHM. absent: Bradycardia, Tachycardia - GI/Abdominal Exam GI & Abdominal Exam: Soft, Tenderness (generalzied tenderness around the hernia) Additional comments: maikol incision well healed. Hernia non-reducible at bedside s/p fentanyl, ice, and trend - Rectal Exam Rectal Exam: Deferred - Extremities Exam Extremities exam: Negative for: calf tenderness - Neurological Exam Neurological exam: Alert, Oriented x3 - Psychiatric Exam Psychiatric exam: Normal Affect - Skin Skin Exam: Intact, Warm Results - Vital Signs Recent Vital Signs: Last Vital Signs Temp 98.5 F 08/25/18 16:07 Pulse 82 08/25/18 16:07 Resp 18 08/25/18 16:07 BP 121/82 08/25/18 16:07 Pulse Ox 96 08/25/18 16:07 - Labs Result Diagrams: 08/25/18 10:25 08/25/18 10:25 Labs: Laboratory Results - last 24 hr 08/25/18 08/25/18 08/25/18 10:25 10:25 10:25 WBC 14.5 H RBC 5.07 Hgb 13.9 Hct 42.6 MCV 84.0 MCH 27.4 MCHC 32.6 RDW 13.9 Plt Count 369 MPV 9.3 Gran % 77.2 H Lymph % (Auto) 17.2 L [place] % (Auto) 4.5 Eos % (Auto) 0.9 L Baso % (Auto) 0.2 Gran # 11.22 H Lymph # (Auto) 2.5 [place] # (Auto) 0.7 H Eos # (Auto) 0.1 Baso # (Auto) 0.03 Sodium 137 Potassium 4.3 Chloride 103 Carbon Dioxide 24 Anion Gap 14 BUN 8 Creatinine 0.5 L Est GFR ( Amer) > 60 Est GFR (Non-Af Amer) > 60 Random Glucose 139 H Calcium 9.0 Magnesium 1.8 Total Bilirubin 0.4 AST 24 ALT 20 Alkaline Phosphatase 89 Total Protein 8.0 Albumin 4.0 Globulin 4.0 Albumin/Globulin Ratio 1.0 L Amylase 58 Lipase 25 Urine Color Yellow Urine Appearance Sl cloudy Urine pH 6.5 Ur Specific [place] 1.025 Urine Protein 100 H Urine Glucose (UA) Negative Urine Ketones Negative Urine Blood Large H Urine Nitrate Negative Urine Bilirubin Negative Urine Urobilinogen 0.2 Ur Leukocyte Esterase Negative Urine RBC Tntc H Urine WBC 0 - 2 Ur Epithelial Cells 6 - 8 H Amorphous Sediment Few Urine Bacteria Many Urine Other Fiber Assessment & Plan - Assessment and Plan (Free Text) Assessment: 28F w/LBO 2/2 incisional ventral hernia Plan: - Plan for hernia repair with Dr. Tobar, given that hernia is partially reducible and patient is symptomatic. Consent for OR was obtained. - NPO - c/w zofran for nausea - IVF - pain control PRN - discussed w/ Dr. Amadou Garcia PGY2
[2018-08-25] MEDS: Sodium Chloride 0.9% 1,000 ML IV SCH (18:03)
[2018-08-25] MEDS ORDERED: HYDROmorphone 0.5 mg/0.5 ml ISec IVP STA (21:02)
[2018-08-25] MEDS: metroNIDAZOLE IV 500 mg/100 ml 500 MG/100 ML BAG IV SCH (21:13)
[2018-08-26] MEDS: Sodium Chloride 0.9% 1,000 ML IV SCH ×3 (02:20→17:34)
[2018-08-26] MEDS: metroNIDAZOLE IV 500 mg/100 ml 500 MG/100 ML BAG IV SCH ×3 (06:29→21:13)
[2018-08-26] MEDS ORDERED: HYDROmorphone 0.5 mg/0.5 ml ISec IVP STA (06:49)
[2018-08-26 07:05] LABS: BLOOD UREA NITROGEN 7 mg/dL (7-21); CALCIUM 8.4 mg/dL (8.4-10.5); GFR NON-AFRICAN AMERICAN > 60; INR 1.1; PARTIAL THROMBOPLASTIN TIME 30.3 Seconds (25.1-36.5); PROTHROMBIN TIME 12.7 SECONDS (9.4-12.5)
[2018-08-26 07:09] LABS: BASO # 0.02 K/mm3 (0.0-2.0); BASO % 0.2 % (0.0-3.0); EOS # 0.2 (0.0-0.7); EOS % 1.4 % (1.5-5.0); GRAN # 8.04 (1.4-6.5); GRAN % 68.5 % (50.0-68.0); HEMOGLOBIN 12.7 g/dL (12.0-16.0); LYMPH # 2.9 (1.2-3.4); LYMPH % 24.4 % (22.0-35.0); MEAN CELL VOLUME 84.8 fl (80.0-105.0); MEAN CORPUSCULAR HEMOGLOBIN 26.8 pg (25.0-35.0); MEAN CORPUSCULAR HGB CONC 31.6 g/dl (31.0-37.0); MONO # 0.7 (0.1-0.6); MONO % 5.5 % (1.0-6.0); RBC 4.74 10^6/uL (3.5-6.1); RED CELL DISTRIBUTION WIDTH 13.8 % (11.5-14.5); WHITE BLOOD COUNT 11.7 10^3/uL (4.5-11.0)
[2018-08-26] MEDS ORDERED: Albuterol-Ipratrop 3 mg / 0.5 (3 ml) UD IH PRN (09:53)
--- NOTE | 2018-08-26 09:57 | CARD ---
APPROVED REPORT Date of service: 08/26/2018 EKG Measurement Heart [id number] <Conclusion> Normal sinus rhythm Normal ECG
[2018-08-26] MEDS: cefTRIAXone 1 gm 1 GM/100 ML BAG IVPB SCH (09:58)
--- NOTE | 2018-08-26 10:08 | CP.PCM.CON ---
<Germán Gardner - Last Filed: 08/26/18 09:56> History of Present Illness - History of Present Illness History of Present Illness: Medicine Consult Note 28 year old female with past medical history of asthma presents with abdominal pain for the past 3 days. Patient states she also had associated nonbilious, nonbloody vomiting. Patient states she has had her hernia for multiple years, but her pain has become progressively worse over the last several days. Patient had her last bowel movement yesterday. Patient is also passing gas. Patient currently admits to having abdominal pain, made worse on palpation. Denies chest pain, shortness of breath, diarrhea, fever, chills. Medical Hx: asthma Surgical Hx: cholecystectomy Medications: Albuterol, Advair, Singulair Social Hx: 08/24 ppd x 14 years, active smoker. Denies alcohol or illicit drug use Allergies: NKDA Family Hx: Mother - HTN, DM, Hypothyroidism, Asthma, Dad - HTN, DM Review of Systems - Review of Systems Review of Systems: 12 point ROS as per HPI, otherwise negative Past Patient History - Infectious Disease Hx of Infectious Diseases: None - Tetanus Immunizations Tetanus Immunization: Unknown - Past Social History Smoking Status: Light Smoker < 10 Cigarettes Daily - CARDIAC Hx Cardiac Disorders: No - PULMONARY Hx Respiratory Disorders: Yes Hx Asthma: Yes Hx Bronchitis: Yes - NEUROLOGICAL Hx Neurological Disorder: Yes Hx Migraine: Yes - HEENT Hx HEENT Problems: No - RENAL Hx Chronic Kidney Disease: No - ENDOCRINE/METABOLIC Hx Endocrine Disorders: No - HEMATOLOGICAL/ONCOLOGICAL Hx Blood Transfusions: No Hx Blood Transfusion Reaction: No - INTEGUMENTARY Hx Dermatological Problems: No - MUSCULOSKELETAL/RHEUMATOLOGICAL Hx Musculoskeletal Disorders: Yes Hx Back Pain: Yes Hx Falls: No - GASTROINTESTINAL Hx Gastrointestinal Disorders: Yes (gallstones) Hx Gall Bladder Disease: Yes (CHOLECYSTECTOMY) - GENITOURINARY/GYNECOLOGICAL Hx Genitourinary Disorders: Yes (fibroid uterus) - PSYCHIATRIC Hx Psychophysiologic Disorder: No Hx Substance Use: No - SURGICAL HISTORY Hx Surgeries: Yes (Cholesetomy) - ANESTHESIA Hx Anesthesia Reactions: No Hx Malignant Hyperthermia: No Meds Allergies/Adverse Reactions: Allergies Allergy/AdvReac Type Severity Reaction Status Date / Time No Known Allergies Allergy Verified 08/25/18 14:28 - Medications Medications: Current Medications Albuterol/Ipratropium (Duoneb 3 Mg/0.5 Mg (3 Ml) Ud) 3 ml IH [id number] PRN PRN Reason: Shortness of Breath Sodium Chloride (Sodium Chloride 0.9%) 1,000 mls @ 125 mls/hr IV .Q8H [facility] Last Admin: 08/26/18 02:20 Dose: 125 mls/hr Ceftriaxone Sodium (Rocephin 1 Gram Ivpb) 1 gm in 100 mls @ 100 mls/hr IVPB DAILY [facility]; Protocol Metronidazole (Flagyl) 500 mg in 100 mls @ 100 mls/hr IV Q8 [facility]; Protocol Last Admin: 08/26/18 06:29 Dose: 100 mls/hr Ketorolac Tromethamine (Toradol) 30 mg IVP Q6 PRN PRN Reason: Pain, moderate (4-7) Last Admin: 08/26/18 02:18 Dose: 30 mg Ondansetron HCl (Zofran Inj) 4 mg IVP Q6 PRN PRN Reason: Nausea/Vomiting Physical Exam - Constitutional Appears: Non-toxic, No Acute Distress - Head Exam Head Exam: ATRAUMATIC, NORMAL INSPECTION, NORMOCEPHALIC - Eye Exam Eye Exam: EOMI, Normal appearance - ENT Exam ENT Exam: Mucous Membranes Moist, Normal Exam - Respiratory Exam Respiratory Exam: Clear to Auscultation Bilateral, NORMAL BREATHING PATTERN. absent: Rales, Rhonchi, Wheezes - Cardiovascular Exam Cardiovascular Exam: RRR, +S1, +S2 - GI/Abdominal Exam GI & Abdominal Exam: Normal Bowel Sounds, Soft, Tenderness (Diffuse ). absent: Guarding, Rebound - Extremities Exam Extremities exam: Positive for: normal inspection. Negative for: pedal edema - Neurological Exam Neurological exam: Alert, CN II-XII Intact, Oriented x3 - Psychiatric Exam Psychiatric exam: Normal Affect, Normal Mood - Skin Skin Exam: Intact, Normal Color, Warm Results - Vital Signs Recent Vital Signs: Last Vital Signs Temp 98.1 F 08/26/18 06:00 Pulse 72 08/26/18 06:00 Resp 20 08/26/18 06:00 BP 119/65 08/26/18 06:00 Pulse Ox 97 08/26/18 06:00 - Labs Result Diagrams: 08/26/18 06:00 08/26/18 06:00 Labs: Laboratory Results - last 24 hr 08/25/18 08/25/18 08/25/18 10:25 10:25 10:25 WBC 14.5 H RBC 5.07 Hgb 13.9 Hct 42.6 MCV 84.0 MCH 27.4 MCHC 32.6 RDW 13.9 Plt Count 369 MPV 9.3 Gran % 77.2 H Lymph % (Auto) 17.2 L [place] % (Auto) 4.5 Eos % (Auto) 0.9 L Baso % (Auto) 0.2 Gran # 11.22 H Lymph # (Auto) 2.5 [place] # (Auto) 0.7 H Eos # (Auto) 0.1 Baso # (Auto) 0.03 PT INR APTT Sodium 137 Potassium 4.3 Chloride 103 Carbon Dioxide 24 Anion Gap 14 BUN 8 Creatinine 0.5 L Est GFR ( Amer) > 60 Est GFR (Non-Af Amer) > 60 Random Glucose 139 H Calcium 9.0 Magnesium 1.8 Total Bilirubin 0.4 AST 24 ALT 20 Alkaline Phosphatase 89 Total Protein 8.0 Albumin 4.0 Globulin 4.0 Albumin/Globulin Ratio 1.0 L Amylase 58 Lipase 25 Beta HCG, Quant Urine Color Yellow Urine Appearance Sl cloudy Urine pH 6.5 Ur Specific [place] 1.025 Urine Protein 100 H Urine Glucose (UA) Negative Urine Ketones Negative Urine Blood Large H Urine Nitrate Negative Urine Bilirubin Negative Urine Urobilinogen 0.2 Ur Leukocyte Esterase Negative Urine RBC Tntc H Urine WBC 0 - 2 Ur Epithelial Cells 6 - 8 H Amorphous Sediment Few Urine Bacteria Many Urine Other Fiber Blood Type Antibody Screen BBK History Checked 08/25/18 08/25/18 08/26/18 18:59 18:59 06:00 WBC 11.7 H RBC 4.74 Hgb 12.7 Hct 40.2 MCV 84.8 MCH 26.8 MCHC 31.6 RDW 13.8 Plt Count 331 MPV 9.0 Gran % 68.5 H Lymph % (Auto) 24.4 [place] % (Auto) 5.5 Eos % (Auto) 1.4 L Baso % (Auto) 0.2 Gran # 8.04 H Lymph # (Auto) 2.9 [place] # (Auto) 0.7 H Eos # (Auto) 0.2 Baso # (Auto) 0.02 PT INR APTT Sodium Potassium Chloride Carbon Dioxide Anion Gap BUN Creatinine Est GFR ( Amer) Est GFR (Non-Af Amer) Random Glucose Calcium Magnesium Total Bilirubin AST ALT Alkaline Phosphatase Total Protein Albumin Globulin Albumin/Globulin Ratio Amylase Lipase Beta HCG, Quant < 2.39 Urine Color Urine Appearance Urine pH Ur Specific [place] Urine Protein Urine Glucose (UA) Urine Ketones Urine Blood Urine Nitrate Urine Bilirubin Urine Urobilinogen Ur Leukocyte Esterase Urine RBC Urine WBC Ur Epithelial Cells Amorphous Sediment Urine Bacteria Urine Other Blood Type O POSITIVE Antibody Screen Negative BBK History Checked Patient has bt 08/26/18 08/26/18 06:00 06:00 WBC RBC Hgb Hct MCV MCH MCHC RDW Plt Count MPV Gran % Lymph % (Auto) [place] % (Auto) Eos % (Auto) Baso % (Auto) Gran # Lymph # (Auto) [place] # (Auto) Eos # (Auto) Baso # (Auto) PT 12.7 H INR 1.10 APTT 30.3 Sodium 138 Potassium 3.8 Chloride 103 Carbon Dioxide 28 Anion Gap 12 BUN 7 Creatinine 0.6 L Est GFR ( Amer) > 60 Est GFR (Non-Af Amer) > 60 Random Glucose 108 Calcium 8.4 Magnesium Total Bilirubin AST ALT Alkaline Phosphatase Total Protein Albumin Globulin Albumin/Globulin Ratio Amylase Lipase Beta HCG, Quant Urine Color Urine Appearance Urine pH Ur Specific [place] Urine Protein Urine Glucose (UA) Urine Ketones Urine Blood Urine Nitrate Urine Bilirubin Urine Urobilinogen Ur Leukocyte Esterase Urine RBC Urine WBC Ur Epithelial Cells Amorphous Sediment Urine Bacteria Urine Other Blood Type Antibody Screen BBK History Checked Assessment & Plan - Assessment and Plan (Free Text) Plan: 28 year old female with past medical history of asthma presents with ventral hernia. Abdomen/pelvis CT reviewed, demonstrates ventral hernia with large bowel obstruction. Also, demonstrates adenexal masses which are possible fibroids, should have pelvic US outpatient. Patient is Class 1 risk or 0.4% for risk for major cardiac event for low risk procedure. Patient is currently medically optimized. 1. Ventral hernia OR scheduled today Incentive spirometer Chest x-ray clear EKG demonstrates normal sinus rhythm, no ST abnormalities 2. Hx of Asthma Duonebs prn Jj, PGY-3 <Lisa Scott R - Last Filed: 08/28/18 18:17> Meds - Medications Medications: Current Medications Acetaminophen (Tylenol 325mg Tab) 650 mg PO Q6H PRN PRN Reason: Pain, moderate (4-7) Albuterol/Ipratropium (Duoneb 3 Mg/0.5 Mg (3 Ml) Ud) 3 ml IH [id number] PRN PRN Reason: Shortness of Breath Last Admin: 08/26/18 12:52 Dose: 3 ml Benzocaine/Menthol (Cepacol Sore Throat) 1 lavelle MT Q2H PRN PRN Reason: Sore Throat Last Admin: 08/28/18 01:50 Dose: 1 lvaelle Ciprofloxacin (Cipro) 500 mg PO Q12 [facility]; Protocol Stop: 08/29/18 12:37 Last Admin: 08/28/18 14:28 Dose: 500 mg Docusate Sodium (Colace) 100 mg PO DAILY [facility] Last Admin: 08/28/18 09:07 Dose: 100 mg Enoxaparin Sodium (Lovenox) 40 mg SC DAILY [facility]; Protocol Last Admin: 08/28/18 09:07 Dose: 40 mg Lidocaine (Lidoderm) 1 ea TD DAILY [facility] Last Admin: 08/28/18 17:47 Dose: 1 ea Metronidazole (Flagyl) 500 mg PO Q8 [facility]; Protocol Last Admin: 08/28/18 14:28 Dose: 500 mg Oxycodone HCl (Oxycodone Immediate Release Tab) 5 mg PO Q6H PRN PRN Reason: Pain, severe (8-10) Last Admin: 08/28/18 17:46 Dose: 5 mg Results - Vital Signs Recent Vital Signs: Last Vital Signs Temp 98.7 F 08/28/18 14:00 Pulse 89 08/28/18 14:00 Resp 20 08/28/18 14:00 BP 127/81 08/28/18 14:00 Pulse Ox 98 08/28/18 14:00 - Labs Result Diagrams: 08/28/18 06:45 08/28/18 06:45 Labs: Laboratory Results - last 24 hr 08/28/18 08/28/18 06:45 06:45 WBC 13.6 H RBC 4.47 Hgb 12.1 Hct 37.7 MCV 84.3 MCH 27.1 MCHC 32.1 RDW 14.0 Plt Count 313 MPV 8.9 Gran % 77.4 H Lymph % (Auto) 14.8 L [place] % (Auto) 6.5 H Eos % (Auto) 1.2 L Baso % (Auto) 0.1 Gran # 10.53 H Lymph # (Auto) 2.0 [place] # (Auto) 0.9 H Eos # (Auto) 0.2 Baso # (Auto) 0.02 Sodium 137 Potassium 3.8 Chloride 105 Carbon Dioxide 27 Anion Gap 9 L BUN 6 L Creatinine 0.6 L Est GFR ( Amer) > 60 Est GFR (Non-Af Amer) > 60 Random Glucose 106 Calcium 8.5 Attending/Attestation - Attestation I have personally seen and examined this patient.: Yes I have fully participated in the care of the patient.: Yes I have reviewed all pertinent clinical information: Yes Notes (Text): Patient seen and examined by me with resident at 10:25AM on 08/26/18. Case including HPI, physical exam, and assessment and plan discussed with resident. Agree with above with following additions/corrections. Patient is a 28 year old female with past medical history significant for asthma that presented to the emergency room with abdominal pain for 3 days. Patient states she has had her hernia for many years. However, over the past 3 days, she states the hernia appeared larger and patient has had worsening pain with associated nausea and vomiting. Pain is constant and sharp. No radiation of pain. Pushing it makes it worse. No chest pain or shortness of breath. No headaches or dizziness. No fevers or chills. No dysuria. Patient complains of constipation. Last bowel movement was yesterday. Medicine is consulted for medical management. 12 point review of systems reviewed by me. Please see above HPI, all other systems negative Physical exam: General: Awake and alert sitting up in bed in no acute distress HEENT: Normocephalic, atraumatic. Extraocular muscles intact, pupils equal and reactive, no scleral icterus. Oropharynx is pink and moist. Neck is supple.Hearing grossly intact. Ears and nose externally unremarkable. Cardiovascular: Regular rhythm. Normal S1 and S2. No murmurs, rubs, or gallops appreciated Pulmonary: Normal respiratory effort. No rhonchi, rales, or wheezing appreciated. Gastrointestinal: Soft, distended. Positive large ventral hernia. Positive generalized abdominal tenderness. Positive bowel sounds all 4 quadrants. No guarding. Musculoskeletal: Moves all extremities. No calf tenderness. No edema a ppreciated. No CVA tenderness Central nervous system: AAOx 3.CN 2-12 grossly intact. Dermatologic: Skin warm and dry. Assessment and Plan: Patient is a 28 year old female with past medical history significant for asthma that presented to the emergency room with abdominal pain for 3 days. We are consulted for medical management. 1. Ventral hernia with obstruction. CT abd/pelvis per radiologist showed bowel containing ventral hernia with evidence of large bowel obstruction involving right and proximal transverse colon; large bilateral adnexal masses may reflect exophytic fundal fibroids, cholecystectomy, heptomegaly, 4mm subpleural right lower lobe pulmonary nodule. Patient NPO. For OR today. Care as per primary team 2. Nausea and vomiting. Continue Zofran as needed. 3. Adnexal mass on CT. Patient to follow up outpatient for pelvic ultrasound and further work up. (instructions written in discharge plan) 4. Pulmonary nodule. Patient will need repeat CT imaging. (instructions written in discharge plan) 5. History of asthma. Not in acute exacerbation. Nebulizer treatments as needed 6. Tobacco abuse. Patient counseled on cessation. Case discussed in detail with patient regarding current diagnosis and treatment plan. All questions answered.
[2018-08-26] MEDS ORDERED: Propofol 10 mg/ml Inj (20 ML) ONE (10:25)
[2018-08-26] MEDS ORDERED: Midazolam 2 MG/2 ML VIAL ONE (10:25)
[2018-08-26] MEDS ORDERED: Lidocaine PF 2% (5 ml) Inj (For Cardiac Arrhy) ONE ×2 (10:25→12:36)
[2018-08-26] MEDS ORDERED: Rocuronium 10 mg/ml (5 ml) ONE (10:25)
[2018-08-26] MEDS ORDERED: Succinylcholine 200 mg/10 ml Inj IV ONE (10:25)
[2018-08-26] MEDS ORDERED: metroNIDAZOLE IV 500 mg/100 ml 500 MG/100 ML BAG ONE (11:19)
--- NOTE | 2018-08-26 12:09 | RAD ---
Date of service: 08/25/2018 HISTORY: asthma/preop COMPARISON: 08/10/2017 TECHNIQUE: Chest PA and lateral FINDINGS: LUNGS: No active pulmonary disease. PLEURA: No significant pleural effusion identified. No pneumothorax apparent. CARDIOVASCULAR: No aortic atherosclerotic calcification present. Normal cardiac size. No pulmonary vascular congestion. OSSEOUS STRUCTURES: No significant abnormalities. VISUALIZED UPPER ABDOMEN: Normal. OTHER FINDINGS: None. IMPRESSION: No active disease.
[2018-08-26] MEDS ORDERED: Bupivacaine Liposomal Inj 20 ml ONE (12:23)
[2018-08-26] MEDS ORDERED: Neostigmine Methylsulfate 3mg/3ml Syringe IV ONE (12:33)
[2018-08-26] MEDS ORDERED: Glycopyrrolate 0.2 mg/ml (2ml vial) ONE (12:33)
[2018-08-26] MEDS ORDERED: Albuterol 0.083% Inhal Sol (2.5 mg/3 mL) UD ONE (12:50)
[2018-08-26] MEDS ORDERED: HYDROmorphone 0.5 mg/0.5 ml ISec IVP PRN (12:57)
[2018-08-26] MEDS ORDERED: Lactated Ringer's 1,000 ML IV SCH (13:00)
[2018-08-26] MEDS ORDERED: HYDROmorphone 0.5 mg/0.5 ml ISec ONE ×2 (13:13→13:29)
[2018-08-26] MEDS ORDERED: HYDROmorphone 0.5 mg/0.5 ml ISec IVP ONE ×2 (13:15→13:30)
[2018-08-26] MEDS ORDERED: Levalbuterol 0.63 MG/3 ML Inhal Soln UD IH PRN (13:16)
--- NOTE | 2018-08-26 13:18 | PCM.SURG1 ---
Surgeon's Initial Post Op Note - Surgeon's Notes Surgeon: Dr. Tobar Sales Relationship Manager: PGY2 Type of Anesthesia: General Endo Pre-Operative Diagnosis: 1. Large Bowel Obstruction. 2. Incarcerated Ventral Hernia Operative Findings: multiple hernia defects w/ omentum. for details see op note Post-Operative Diagnosis: 1. Incarcerated Ventral Hernia Operation Performed: 1. Ventral hernia repair with mesh. 2. Omentectomy Specimen/Specimens Removed: 1. Hernia Sac. 2. Omentum Estimated Blood Loss: EBL {In ML}: 30 Drains Used: [place] (Red rubber catheter at inferior portion of incision) Post-Op Condition: Fair Date of Surgery/Procedure: 08/26/18 Time of Surgery/Procedure: 13:00
[2018-08-26] MEDS: HYDROmorphone 0.5 mg/0.5 ml ISec IVP PRN ×3 (16:28→23:45)
[2018-08-27] MEDS: Sodium Chloride 0.9% 1,000 ML IV SCH ×2 (01:51→09:09)
[2018-08-27] MEDS: Benzocaine/Menthol (Cepacol) Lozenge MT PRN (02:13)
[2018-08-27] MEDS: HYDROmorphone 0.5 mg/0.5 ml ISec IVP PRN ×5 (05:08→23:33)
[2018-08-27] MEDS: metroNIDAZOLE IV 500 mg/100 ml 500 MG/100 ML BAG IV SCH ×3 (05:08→21:37)
[2018-08-27 08:01] LABS: BASO # 0.02 K/mm3 (0.0-2.0); BASO % 0.1 % (0.0-3.0); EOS # 0.1 (0.0-0.7); EOS % 0.8 % (1.5-5.0); GRAN # 12.56 (1.4-6.5); GRAN % 83.6 % (50.0-68.0); HEMOGLOBIN 12.3 g/dL (12.0-16.0); LYMPH # 1.4 (1.2-3.4); MEAN CELL VOLUME 85.4 fl (80.0-105.0); MEAN CORPUSCULAR HEMOGLOBIN 26.9 pg (25.0-35.0); MEAN CORPUSCULAR HGB CONC 31.5 g/dl (31.0-37.0); MEAN PLATELET VOLUME 9.2 fl (7.0-11.0); MONO % 6.5 % (1.0-6.0); RBC 4.58 10^6/uL (3.5-6.1)
[2018-08-27 08:09] LABS: BLOOD UREA NITROGEN 6 mg/dL (7-21); CALCIUM 8.5 mg/dL (8.4-10.5); GFR NON-AFRICAN AMERICAN > 60
--- NOTE | 2018-08-27 08:26 | CP.PCM.PN ---
Subjective - Date & Time of Evaluation Date of Evaluation: 08/27/18 Time of Evaluation: 08:22 - Subjective Subjective: Surgery Progress note- Dr. Tobar Patient seen and examined at bedside. complaining of incisional abdominal pain. Dressing w/ some strike through, expected due to red-rubber catheter placement. Patient states she has an appetite. Objective - Vital Signs/Intake and Output Vital Signs (last 24 hours): Temp Pulse Resp BP Pulse Ox 98.3 F 85 18 96/59 L 98 08/26/18 22:00 08/26/18 22:00 08/26/18 22:00 08/26/18 22:00 08/26/18 22:00 Intake and Output: 08/27/18 08/27/18 06:59 18:59 Intake Total 0 Balance 0 - Medications Medications: Current Medications Albuterol/Ipratropium (Duoneb 3 Mg/0.5 Mg (3 Ml) Ud) 3 ml IH [id number] PRN PRN Reason: Shortness of Breath Last Admin: 08/26/18 12:52 Dose: 3 ml Benzocaine/Menthol (Cepacol Sore Throat) 1 lavelle MT Q2H PRN PRN Reason: Sore Throat Last Admin: 08/27/18 02:13 Dose: 1 lavelle Enoxaparin Sodium (Lovenox) 40 mg SC DAILY [facility]; Protocol Hydromorphone HCl (Dilaudid) 0.5 mg IVP Q15M PRN PRN Reason: Pain, Moderate/Severe (4-10) Last Admin: 08/26/18 12:59 Dose: 0.5 mg Hydromorphone HCl (Dilaudid) 0.5 mg IVP Q3H PRN PRN Reason: Pain, moderate (4-7) Last Admin: 08/27/18 05:08 Dose: 0.5 mg Sodium Chloride (Sodium Chloride 0.9%) 1,000 mls @ 125 mls/hr IV .Q8H [facility] Last Admin: 08/27/18 01:51 Dose: 125 mls/hr Ceftriaxone Sodium (Rocephin 1 Gram Ivpb) 1 gm in 100 mls @ 100 mls/hr IVPB DAILY [facility]; Protocol Last Admin: 08/26/18 09:58 Dose: 100 mls/hr Metronidazole (Flagyl) 500 mg in 100 mls @ 100 mls/hr IV Q8 [facility]; Protocol Last Admin: 08/27/18 05:08 Dose: 100 mls/hr Levalbuterol HCl (Xopenex) 0.63 mg IH [id number] PRN PRN Reason: Shortness of Breath Ondansetron HCl (Zofran Inj) 4 mg IVP Q6 PRN PRN Reason: Nausea/Vomiting Last Admin: 08/26/18 17:46 Dose: 4 mg - Labs Labs: 08/27/18 07:00 08/27/18 07:00 PT 12.7 SECONDS (9.4-12.5) H 08/26/18 06:00 INR 1.10 08/26/18 06:00 APTT 30.3 Seconds (25.1-36.5) 08/26/18 06:00 - Constitutional Appears: Non-toxic, No Acute Distress - Head Exam Head Exam: ATRAUMATIC - Eye Exam Eye Exam: EOMI. absent: Scleral icterus - ENT Exam ENT Exam: Mucous Membranes Moist - Respiratory Exam Respiratory Exam: NORMAL BREATHING PATTERN. absent: Accessory Muscle Use, Respiratory Distress - Cardiovascular Exam Cardiovascular Exam: REGULAR RHYTHM, +S1, +S2. absent: Bradycardia, Tachycardia - GI/Abdominal Exam GI & Abdominal Exam: Guarding (voluntary guarding), Soft, Tenderness (appropriately tender around midline incision). absent: Distended, Firm, Rigid, Rebound Additional comments: dressing clean, intact w/ some strikethrough (red-rubber cather on inside of incision) - Neurological Exam Neurological Exam: Alert, Awake, Oriented x3 - Psychiatric Exam Psychiatric exam: Normal Affect - Skin Skin Exam: Intact, Warm Assessment and Plan - Assessment and Plan (Free Text) Assessment: 28F s/p ventral hernia repair w/ mesh POD#1 Plan: - Pain control PRN - Incentive spirometer - advance to clear liquid diet - monitor bowel function - encourage out of bed and ambulation - further recs per Dr. Tobar surgical attending PGY2
[2018-08-27 09:03] VITALS: RESP 20
[2018-08-27] MEDS: Enoxaparin 40 mg Syringe SC SCH (09:08)
[2018-08-27] MEDS: cefTRIAXone 1 gm 1 GM/100 ML BAG IVPB SCH (09:08)
--- NOTE | 2018-08-27 13:28 | CP.PCM.PN ---
<Filemon Pires - Last Filed: 08/27/18 13:41> Subjective - Date & Time of Evaluation Date of Evaluation: 08/27/18 Time of Evaluation: 09:00 - Subjective Subjective: Seen and examined. Pt is OOB to chair. Reports abdominal pain. Denies SOB, chest pain, nausea or vomiting, flatus, or BM. Objective - Vital Signs/Intake and Output Vital Signs (last 24 hours): Temp Pulse Resp BP Pulse Ox 98.9 F 90 20 118/70 96 08/27/18 06:00 08/27/18 06:00 08/27/18 06:00 08/27/18 06:00 08/27/18 06:00 Intake and Output: 08/27/18 08/27/18 06:59 18:59 Intake Total 0 Balance 0 - Medications Medications: Current Medications Albuterol/Ipratropium (Duoneb 3 Mg/0.5 Mg (3 Ml) Ud) 3 ml IH [id number] PRN PRN Reason: Shortness of Breath Last Admin: 08/26/18 12:52 Dose: 3 ml Benzocaine/Menthol (Cepacol Sore Throat) 1 lavelle MT Q2H PRN PRN Reason: Sore Throat Last Admin: 08/27/18 02:13 Dose: 1 lavelle Enoxaparin Sodium (Lovenox) 40 mg SC DAILY [facility]; Protocol Last Admin: 08/27/18 09:08 Dose: 40 mg Hydromorphone HCl (Dilaudid) 0.5 mg IVP Q15M PRN PRN Reason: Pain, Moderate/Severe (4-10) Last Admin: 08/26/18 12:59 Dose: 0.5 mg Hydromorphone HCl (Dilaudid) 0.5 mg IVP Q3H PRN PRN Reason: Pain, moderate (4-7) Last Admin: 08/27/18 13:18 Dose: 0.5 mg Sodium Chloride (Sodium Chloride 0.9%) 1,000 mls @ 125 mls/hr IV .Q8H [facility] Last Admin: 08/27/18 09:09 Dose: 125 mls/hr Ceftriaxone Sodium (Rocephin 1 Gram Ivpb) 1 gm in 100 mls @ 100 mls/hr IVPB DAILY [facility]; Protocol Last Admin: 08/27/18 09:08 Dose: 100 mls/hr Metronidazole (Flagyl) 500 mg in 100 mls @ 100 mls/hr IV Q8 [facility]; Protocol Last Admin: 08/27/18 13:19 Dose: 100 mls/hr Levalbuterol HCl (Xopenex) 0.63 mg IH [id number] PRN PRN Reason: Shortness of Breath Ondansetron HCl (Zofran Inj) 4 mg IVP Q6 PRN PRN Reason: Nausea/Vomiting Last Admin: 08/26/18 17:46 Dose: 4 mg Oxycodone/Acetaminophen (Percocet 5/325 Mg Tab) 1 tab PO Q6H PRN PRN Reason: Pain, moderate (4-7) Stop: 08/30/18 11:01 - Labs Labs: 08/27/18 07:00 08/27/18 07:00 PT 12.7 SECONDS (9.4-12.5) H 08/26/18 06:00 INR 1.10 08/26/18 06:00 APTT 30.3 Seconds (25.1-36.5) 08/26/18 06:00 - Constitutional Appears: No Acute Distress - Head Exam Head Exam: ATRAUMATIC, NORMOCEPHALIC - Eye Exam Eye Exam: EOMI - ENT Exam ENT Exam: Mucous Membranes Moist - Neck Exam Neck Exam: Full ROM - Respiratory Exam Respiratory Exam: Clear to Ausculation Bilateral, NORMAL BREATHING PATTERN. absent: Accessory Muscle Use - Cardiovascular Exam Cardiovascular Exam: RRR, +S1, +S2. absent: Diastolic murmur, Murmur - GI/Abdominal Exam GI & Abdominal Exam: Soft, Tenderness, Normal Bowel Sounds Additional comments: bandages are clean, dry and intact - Extremities Exam Extremities Exam: Full ROM. absent: Pedal Edema - Neurological Exam Neurological Exam: Alert, Awake, Oriented x3 - Psychiatric Exam Psychiatric exam: Normal Affect, Normal Mood - Skin Skin Exam: Dry, Intact, Warm Assessment and Plan - Assessment and Plan (Free Text) Assessment: Pt is a 28 yo female with a PMH of asthma who presents with ventral hernia. Plan: Hx of Asthma - xopenex lester and prn - continue to monitor - pt sat well on room air Ventral hernia - s/p ventral hernia repair with mesh, omenectomy, operation performed 08/26/[address] Tobar - POD #1 - advance diet as tolerated, by Surgery, now on full liquid diet - encourage OOB to chair - Incentive spirometer - rocephin and flagyl - follow up anerobic cultures - diladid for pain control, per surgery Pt seen, examined, assessment and plan discussed with Dr Sinan Pires PGY1, Internal Medicine Resident <Priscilla Menon - Last Filed: 08/27/18 14:49> Objective - Vital Signs/Intake and Output Vital Signs (last 24 hours): Temp Pulse Resp BP Pulse Ox 98.9 F 90 20 118/70 96 08/27/18 06:00 08/27/18 06:00 08/27/18 06:00 08/27/18 06:00 08/27/18 06:00 Intake and Output: 08/27/18 08/27/18 06:59 18:59 Intake Total 0 Balance 0 - Medications Medications: Current Medications Albuterol/Ipratropium (Duoneb 3 Mg/0.5 Mg (3 Ml) Ud) 3 ml IH [id number] PRN PRN Reason: Shortness of Breath Last Admin: 08/26/18 12:52 Dose: 3 ml Benzocaine/Menthol (Cepacol Sore Throat) 1 lavelle MT Q2H PRN PRN Reason: Sore Throat Last Admin: 08/27/18 02:13 Dose: 1 lavelle Enoxaparin Sodium (Lovenox) 40 mg SC DAILY [facility]; Protocol Last Admin: 08/27/18 09:08 Dose: 40 mg Hydromorphone HCl (Dilaudid) 0.5 mg IVP Q15M PRN PRN Reason: Pain, Moderate/Severe (4-10) Last Admin: 08/26/18 12:59 Dose: 0.5 mg Hydromorphone HCl (Dilaudid) 0.5 mg IVP Q3H PRN PRN Reason: Pain, moderate (4-7) Last Admin: 08/27/18 13:18 Dose: 0.5 mg Sodium Chloride (Sodium Chloride 0.9%) 1,000 mls @ 125 mls/hr IV .Q8H [facility] Last Admin: 08/27/18 09:09 Dose: 125 mls/hr Ceftriaxone Sodium (Rocephin 1 Gram Ivpb) 1 gm in 100 mls @ 100 mls/hr IVPB DAILY [facility]; Protocol Last Admin: 08/27/18 09:08 Dose: 100 mls/hr Metronidazole (Flagyl) 500 mg in 100 mls @ 100 mls/hr IV Q8 [facility]; Protocol Last Admin: 08/27/18 13:19 Dose: 100 mls/hr Levalbuterol HCl (Xopenex) 0.63 mg IH [id number] PRN PRN Reason: Shortness of Breath Ondansetron HCl (Zofran Inj) 4 mg IVP Q6 PRN PRN Reason: Nausea/Vomiting Last Admin: 08/26/18 17:46 Dose: 4 mg Oxycodone/Acetaminophen (Percocet 5/325 Mg Tab) 1 tab PO Q6H PRN PRN Reason: Pain, moderate (4-7) Stop: 08/30/18 11:01 - Labs Labs: 08/27/18 07:00 08/27/18 07:00 PT 12.7 SECONDS (9.4-12.5) H 08/26/18 06:00 INR 1.10 08/26/18 06:00 APTT 30.3 Seconds (25.1-36.5) 08/26/18 06:00 Attending/Attestation - Attestation I have personally seen and examined this patient.: Yes I have fully participated in the care of the patient.: Yes I have reviewed all pertinent clinical information, including history, physical exam and plan: Yes Notes (Text): 08/27/18 14:45 Attending note/medical consult note; Patient seen and examined with resident this morning. Patient is out of bed to chair. Complaining of abdominal pain. Denies any nausea, vomiting. passing gas. No BM yet. Patient is currently nothing by mouth. 1. Status post ventral hernia repair with mesh, omenectomy, operation performed 08/26/[address] Tobar. Abdomen soft. Follow-up with surgery. Diet as per surgery. 2 leukocytosis; continue Rocephin and Flagyl. Patient is afebrile and nontoxic. Blood culture, urine culture is negative. 3. History of asthma; continue DuoNeb when necessary. Stable respiratory status. 4. Ambulating as tolerated. DVT prophylaxis with Lovenox. 5. Pain management with Percocet and IV Dilaudid when necessary. Patient is medically stable. Continue the current management. Discharge plan for surgery. Patient can be [place] [facility] [place]/or follow-up with PMD within the insurance coverage.
--- NOTE | 2018-08-27 14:07 | CP.PCM.PCO ---
Physician Communication Note - Physician Communication Note Physician Communication Note: +BM/Rx diet-PO Percocet/OOB ambulating/No asthma
[2018-08-27] MEDS: Oxycodone/Acetaminophen 5/325 mg Tab PO PRN (16:48)
[2018-08-28] MEDS ORDERED: Benzocaine/Menthol (Cepacol) Lozenge MT STA (01:44)
[2018-08-28] MEDS: Benzocaine/Menthol (Cepacol) Lozenge MT PRN (01:50)
[2018-08-28] MEDS: HYDROmorphone 0.5 mg/0.5 ml ISec IVP PRN (02:27)
[2018-08-28] MEDS: metroNIDAZOLE IV 500 mg/100 ml 500 MG/100 ML BAG IV SCH ×2 (05:36→08:30)
[2018-08-28] MEDS: Sodium Chloride 0.9% 1,000 ML IV SCH ×2 (05:37→06:40)
[2018-08-28 07:15] LABS: BASO # 0.02 K/mm3 (0.0-2.0); BASO % 0.1 % (0.0-3.0); EOS # 0.2 (0.0-0.7); EOS % 1.2 % (1.5-5.0); GRAN # 10.53 (1.4-6.5); GRAN % 77.4 % (50.0-68.0); HEMOGLOBIN 12.1 g/dL (12.0-16.0); LYMPH % 14.8 % (22.0-35.0); MEAN CELL VOLUME 84.3 fl (80.0-105.0); MEAN CORPUSCULAR HEMOGLOBIN 27.1 pg (25.0-35.0); MEAN CORPUSCULAR HGB CONC 32.1 g/dl (31.0-37.0); MEAN PLATELET VOLUME 8.9 fl (7.0-11.0); MONO # 0.9 (0.1-0.6); MONO % 6.5 % (1.0-6.0); RBC 4.47 10^6/uL (3.5-6.1); WHITE BLOOD COUNT 13.6 10^3/uL (4.5-11.0)
[2018-08-28 08:21] LABS: BLOOD UREA NITROGEN 6 mg/dL (7-21); CALCIUM 8.5 mg/dL (8.4-10.5); GFR NON-AFRICAN AMERICAN > 60
--- NOTE | 2018-08-28 08:47 | CP.PCM.PN ---
Subjective - Date & Time of Evaluation Date of Evaluation: 08/28/18 Time of Evaluation: 08:45 - Subjective Subjective: Surgery Pt seen and examined. No acute events. c/o abd pain. Had BM yeaterday. Passing flatus. Ambulates. voiding. Toleating diet. Objective - Vital Signs/Intake and Output Vital Signs (last 24 hours): Temp Pulse Resp BP Pulse Ox 98.5 F 92 H 20 130/72 94 L 08/27/18 22:00 08/27/18 22:00 08/27/18 22:00 08/27/18 22:00 08/27/18 22:00 Intake and Output: 08/28/18 08/28/18 06:59 18:59 Intake Total 180 Balance 180 - Medications Medications: Current Medications Albuterol/Ipratropium (Duoneb 3 Mg/0.5 Mg (3 Ml) Ud) 3 ml IH [id number] PRN PRN Reason: Shortness of Breath Last Admin: 08/26/18 12:52 Dose: 3 ml Benzocaine/Menthol (Cepacol Sore Throat) 1 lavelle MT Q2H PRN PRN Reason: Sore Throat Last Admin: 08/28/18 01:50 Dose: 1 lavelle Docusate Sodium (Colace) 100 mg PO DAILY FRANNIE Enoxaparin Sodium (Lovenox) 40 mg SC DAILY [facility]; Protocol Last Admin: 08/27/18 09:08 Dose: 40 mg Hydromorphone HCl (Dilaudid) 0.5 mg IVP Q15M PRN PRN Reason: Pain, Moderate/Severe (4-10) Last Admin: 08/26/18 12:59 Dose: 0.5 mg Hydromorphone HCl (Dilaudid) 0.5 mg IVP Q3H PRN PRN Reason: Pain, moderate (4-7) Last Admin: 08/28/18 02:27 Dose: 0.5 mg Ceftriaxone Sodium (Rocephin 1 Gram Ivpb) 1 gm in 100 mls @ 100 mls/hr IVPB DAILY [facility]; Protocol Last Admin: 08/27/18 09:08 Dose: 100 mls/hr Metronidazole (Flagyl) 500 mg in 100 mls @ 100 mls/hr IV Q8 [facility]; Protocol Last Admin: 08/28/18 08:30 Dose: Not Given Ondansetron HCl (Zofran Inj) 4 mg IVP Q6 PRN PRN Reason: Nausea/Vomiting Last Admin: 08/26/18 17:46 Dose: 4 mg Oxycodone/Acetaminophen (Percocet 5/325 Mg Tab) 1 tab PO Q6H PRN PRN Reason: Pain, moderate (4-7) Stop: 08/30/18 11:01 Last Admin: 08/27/18 16:48 Dose: 1 tab - Labs Labs: 08/28/18 06:45 08/28/18 06:45 PT 12.7 SECONDS (9.4-12.5) H 08/26/18 06:00 INR 1.10 08/26/18 06:00 APTT 30.3 Seconds (25.1-36.5) 08/26/18 06:00 - Constitutional Appears: No Acute Distress - Head Exam Head Exam: ATRAUMATIC, NORMAL INSPECTION, NORMOCEPHALIC - Eye Exam Eye Exam: EOMI, Normal appearance, PERRL Pupil Exam: NORMAL ACCOMODATION, PERRL - ENT Exam ENT Exam: Mucous Membranes Moist, Normal Exam - Neck Exam Neck Exam: Normal Inspection - Respiratory Exam Respiratory Exam: NORMAL BREATHING PATTERN - Cardiovascular Exam Cardiovascular Exam: REGULAR RHYTHM - GI/Abdominal Exam GI & Abdominal Exam: Soft, Tenderness. absent: Distended, Firm, Guarding, Rigid Additional comments: Dressing C/D/I. - Extremities Exam Extremities Exam: Full ROM, Normal Inspection - Back Exam Back Exam: NORMAL INSPECTION - Neurological Exam Neurological Exam: Alert, Awake, CN II-XII Intact, Normal Gait, Oriented x3 - Psychiatric Exam Psychiatric exam: Normal Affect, Normal Mood - Skin Skin Exam: Dry, Intact, Normal Color, Warm Assessment and Plan - Assessment and Plan (Free Text) Assessment: 28F s/p ventral hernia repair w/ mesh POD#2 Plan: - Pain control PRN - Incentive spirometer -Regular diet. - encourage out of bed and ambulation - further recs per Dr. Tobar surgical attending
[2018-08-28] MEDS: Oxycodone/Acetaminophen 5/325 mg Tab PO PRN ×2 (09:06→15:37)
[2018-08-28] MEDS: Enoxaparin 40 mg Syringe SC SCH (09:07)
[2018-08-28] MEDS ORDERED: Potassium Chloride 20 mEq/15 ml LIQ UD PO STA (09:12)
[2018-08-28] MEDS: cefTRIAXone 1 gm 1 GM/100 ML BAG IVPB SCH (11:37)
[2018-08-28] MEDS: oxyCODONE 5 mg Immediate Release Tab PO PRN ×2 (17:46→23:09)
[2018-08-28] MEDS: Lidocaine 5% Patch TD SCH (17:47)
--- NOTE | 2018-08-28 20:05 | CP.PCM.PN ---
<Filemon Pires - Last Filed: 08/28/18 20:05> Subjective - Date & Time of Evaluation Date of Evaluation: 08/28/18 Time of Evaluation: 07:35 - Subjective Subjective: Pt seen and examined, pt denies any new complaints Objective - Vital Signs/Intake and Output Vital Signs (last 24 hours): Temp Pulse Resp BP Pulse Ox 98.7 F 89 20 127/81 98 08/28/18 14:00 08/28/18 14:00 08/28/18 14:00 08/28/18 14:00 08/28/18 14:00 - Medications Medications: Current Medications Acetaminophen (Tylenol 325mg Tab) 650 mg PO Q6H PRN PRN Reason: Pain, moderate (4-7) Albuterol/Ipratropium (Duoneb 3 Mg/0.5 Mg (3 Ml) Ud) 3 ml IH [id number] PRN PRN Reason: Shortness of Breath Last Admin: 08/26/18 12:52 Dose: 3 ml Benzocaine/Menthol (Cepacol Sore Throat) 1 lavelle MT Q2H PRN PRN Reason: Sore Throat Last Admin: 08/28/18 01:50 Dose: 1 lavelel Ciprofloxacin (Cipro) 500 mg PO Q12 [facility]; Protocol Stop: 08/29/18 12:37 Last Admin: 08/28/18 14:28 Dose: 500 mg Docusate Sodium (Colace) 100 mg PO DAILY [facility] Last Admin: 08/28/18 09:07 Dose: 100 mg Enoxaparin Sodium (Lovenox) 40 mg SC DAILY [facility]; Protocol Last Admin: 08/28/18 09:07 Dose: 40 mg Lidocaine (Lidoderm) 1 ea TD DAILY [facility] Last Admin: 08/28/18 17:47 Dose: 1 ea Metronidazole (Flagyl) 500 mg PO Q8 [facility]; Protocol Last Admin: 08/28/18 14:28 Dose: 500 mg Oxycodone HCl (Oxycodone Immediate Release Tab) 5 mg PO Q6H PRN PRN Reason: Pain, severe (8-10) Last Admin: 08/28/18 17:46 Dose: 5 mg - Labs Labs: 08/28/18 06:45 08/28/18 06:45 PT 12.7 SECONDS (9.4-12.5) H 08/26/18 06:00 INR 1.10 08/26/18 06:00 APTT 30.3 Seconds (25.1-36.5) 08/26/18 06:00 - Constitutional Appears: No Acute Distress - ENT Exam ENT Exam: Mucous Membranes Moist - Neck Exam Neck Exam: Full ROM - Respiratory Exam Respiratory Exam: Clear to Ausculation Bilateral, NORMAL BREATHING PATTERN. absent: Accessory Muscle Use, Respiratory Distress - Cardiovascular Exam Cardiovascular Exam: RRR, +S1, +S2. absent: Diastolic murmur, Murmur - GI/Abdominal Exam GI & Abdominal Exam: Soft, Normal Bowel Sounds Additional comments: dressings are clean, dry and intact - Extremities Exam Extremities Exam: Full ROM. absent: Pedal Edema - Neurological Exam Neurological Exam: Alert, Awake, Oriented x3 - Psychiatric Exam Psychiatric exam: Normal Affect, Normal Mood - Skin Skin Exam: Dry, Intact, Warm Assessment and Plan - Assessment and Plan (Free Text) Assessment: Pt is a 28 yo female with a PMH of asthma who presents with ventral hernia. Plan: Hx of Asthma - xopenex lester and prn - pt sat well on room air Ventral hernia - s/p ventral hernia repair with mesh, omenectomy, operation performed 08/26/[address] Tobar - advance diet as tolerated, by Surgery - encourage OOB to chair - Incentive spirometer - pain control, per surgery Medicine to sign off, as always, thank you for allowing us to participate in this pt care. Pt seen, examined, assessment and plan discussed with Dr Margaret Pires PGY1, Internal Medicine Resident <Warner Robles - Last Filed: 08/30/18 16:01> Objective - Vital Signs/Intake and Output Vital Signs (last 24 hours): Temp Pulse Resp BP Pulse Ox 98.4 F 84 20 120/75 97 08/29/18 06:00 08/29/18 06:00 08/29/18 06:00 08/29/18 06:00 08/29/18 06:00 - Labs Labs: 08/29/18 06:30 08/29/18 06:30 PT 12.7 SECONDS (9.4-12.5) H 08/26/18 06:00 INR 1.10 08/26/18 06:00 APTT 30.3 Seconds (25.1-36.5) 08/26/18 06:00 Attending/Attestation - Attestation I have personally seen and examined this patient.: Yes I have fully participated in the care of the patient.: Yes I have reviewed all pertinent clinical information, including history, physical exam and plan: Yes Notes (Text): Pt saturating adequately on room air. Neb treatment PRN Hernia management as per primary team. Will sign off this case. Thanks for allowing us to participate in Ms Vela's care.
--- NOTE | 2018-08-28 22:09 | OP ---
PROCEDURE DATE: 08/26/2018 SURGEON: Marcos Tobar MD SENIOR [employer] WE[employer] DEVELOPER: Je Garcia DO, PGY-2 ANESTHESIA: General endotracheal - Exparel 20 mL. MANAGER PERIOPERATIVE: Luis Abel MD PREOPERATIVE DIAGNOSIS: Incarcerated ventral hernia with large bowel obstruction. POSTOPERATIVE DIAGNOSIS: Incarcerated ventral hernia with large bowel obstruction with multiple ventral hernias. PROCEDURES: 1. Laparotomy, ventral herniorrhaphy with Ventralex mesh. 2. Enterolysis. 3. Omentectomy. OPERATIVE INDICATIONS: The patient is a 28-year-old morbidly obese petite [place] female who has been having abdominal pain and a ventral hernia for the past six years that she noted after having a laparoscopic cholecystectomy that had been converted to an open procedure. She has done nothing about this and during this same period of time, she has been progressively worsening asthmatic bronchitis, treated with inhalation steroids intermittently, but she claims because of cost involvement and her lack of resources that she has taken nothing for the past four to eight weeks. Over the past several days, she has had progressive distention of the ventral hernia above the umbilicus and progressive pain associated with it and says she is having trouble passing gas and moving her bowels. She did move her bowels approximately the day before admission, but comes to the emergency room because of the worsening pain. Her last menstrual history is not recorded anywhere in the record. The patient did undergo a urine test prior to her CAT scan, and this was negative and a beta hCG was less than 3. She came to the emergency room and was found to have an elevated white count of 14,500 with left shift, underwent CAT scanning and was found to have an incarcerated ventral hernia with the incarcerated bowel involved with transverse colon and retrograde distention of the ascending colon. The surgical team was notified by the emergency room, saw the patient, contacted this physician who accepts the patient in his service and orders opiates for pain relief and to attempt to allow reduction of the hernia. Two hours later with the failure of the reduction of the hernia, the patient was admitted, started on intravenous hydration and antibiotics were started as well. The patient was not wheezing at the time of her emergency room evaluation, but medical consultation was requested because this patient will obviously need surgery and has been taking inhalation steroids for her asthma. She does admit to continued smoking despite the fact that this asthma is getting worse. Risks, benefits and alternatives with their anticipated outcomes were discussed with the patient and with her family and after complete explanation, the patient agrees to the urgent need for surgery and is aware there is a possibility of a colostomy if the bowel is damaged by this incarceration. OPERATIVE NOTE: The patient is brought to the operating room, undergoes time-out procedure and is identified by her wristband. She is placed on the table in a supine manner and undergoes the induction of general anesthesia with the insertion of an endotracheal tube. Sequential compression devices are placed on her lower extremities, and the abdomen is prepped with Hibiclens chlorhexidine preparation and aseptically draped. The patient undergoes a midline incision above the umbilicus and is dissected carefully with electrocoagulation cautery for hemostasis down to the hernia sac. The hernia is extending up towards the xiphoid process, and the incision has to be extended in this direction twice. Once this is performed, complete dissection around the hernia sac is encountered, and the hernia sac is cleared of all adhesions. Hernia sac is elevated on clamps, incised and the content visualized fluid of a clear yellow nature is encountered without any odor and is cultured aerobically and anaerobically at this point. The incarcerated colon is reduced into the peritoneal cavity and appears of normal color and without injury. Adhesions to the hernia sac are carefully freed with cautery scalpel, and the hernia sac is dissected free from the abdominal wall fascia with cautery coagulation, and the hernia sac is submitted to Pathology in formalin. The adhesions surrounding the hernia sac require extensive lysis and electrocoagulation, and multiple other ventral hernia defects are encountered immediately adjacent to the large hernia but seemed to contain only omentum. One of these is extremely large omental involvement that is approximately 4-5 cm and appears to have done some inflammatory reaction by compression to this omentum. It is elected at this point to serially clamp and dissect free the omentum which is submitted to Pathology in formalin and ligate the remaining omental surface under the Faviola clamps. The omentum is returned to the peritoneal cavity, and additional adhesions are carefully lysed and the hernia defect measured approximately 2 inches from top to bottom and 2 inches from side to side. At this point, it is elected to place a Ventralex mesh into the hernia sac into the peritoneal cavity and secure the mesh to the anterior abdominal wall with the [id number] interrupted #1 Prolene sutures with buried knots. Once the entire defect is closed, the supporting wings holding the fascia are transected, and the fascia and skin are infiltrated with the long-acting Exparel 72-hour anesthetic. The wound is lavaged with saline, aspirated, hemostasis contained and the subcutaneous tissues are approximated with a running 3-0 Polysorb suture and returning back as a subcuticular closure to the original suture. The skin is now closed with the AutoSuture skin stapler, and a #10-Italian red rubber catheter is inserted into the incision allowing drainage of any accumulating fluids overnight to be removed in the morning with the first dressing change as the drain is attached to the dressing by verenice. Further dressings are placed over this, covered with a 3M dressing, and the patient is then transported to the recovery room where she will be extubated there. Sponge, instrument and suture counts were verified as correct at the end of the procedure. Estimated blood loss during the procedure was less than 35 mL of blood. The surgical assistants were present throughout from beginning to end and were extremely essential in the dissection and in the closure of the ventral hernia defect. This dictation will be electronically signed by Dr. Tobar without being read. Marcos Tobar MD
[2018-08-29] MEDS: oxyCODONE 5 mg Immediate Release Tab PO PRN ×2 (05:40→13:29)
[2018-08-29 07:07] LABS: BASO # 0.02 K/mm3 (0.0-2.0); BASO % 0.1 % (0.0-3.0); EOS # 0.3 (0.0-0.7); EOS % 2.1 % (1.5-5.0); GRAN # 9.82 (1.4-6.5); GRAN % 72.8 % (50.0-68.0); HEMOGLOBIN 11.8 g/dL (12.0-16.0); LYMPH # 2.5 (1.2-3.4); LYMPH % 18.3 % (22.0-35.0); MEAN CORPUSCULAR HEMOGLOBIN 26.8 pg (25.0-35.0); MEAN CORPUSCULAR HGB CONC 31.5 g/dl (31.0-37.0); MEAN PLATELET VOLUME 9.1 fl (7.0-11.0); MONO # 0.9 (0.1-0.6); MONO % 6.7 % (1.0-6.0); RBC 4.41 10^6/uL (3.5-6.1); RED CELL DISTRIBUTION WIDTH 14.1 % (11.5-14.5); WHITE BLOOD COUNT 13.5 10^3/uL (4.5-11.0)
--- NOTE | 2018-08-29 07:09 | CP.PCM.PN ---
Subjective - Date & Time of Evaluation Date of Evaluation: 08/29/18 Time of Evaluation: 07:09 - Subjective Subjective: Surgery Progress note- Dr. Tobar Patient seen and examined at bedside. Doing well post op. De-eseclated to PO abx and analgesia. Pt admits to having normal bowel function. Incision remains C/D/I on POD#3. No new complaints. Denies f/c/cp/sob/n/v/d Objective - Vital Signs/Intake and Output Vital Signs (last 24 hours): Temp Pulse Resp BP Pulse Ox 98.7 F 89 20 127/81 98 08/28/18 14:00 08/28/18 14:00 08/28/18 14:00 08/28/18 14:00 08/28/18 14:00 Intake and Output: 08/29/18 08/29/18 06:59 18:59 Intake Total 720 Balance 720 - Medications Medications: Current Medications Acetaminophen (Tylenol 325mg Tab) 650 mg PO Q6H PRN PRN Reason: Pain, moderate (4-7) Albuterol/Ipratropium (Duoneb 3 Mg/0.5 Mg (3 Ml) Ud) 3 ml IH [id number] PRN PRN Reason: Shortness of Breath Last Admin: 08/26/18 12:52 Dose: 3 ml Benzocaine/Menthol (Cepacol Sore Throat) 1 lavelle MT Q2H PRN PRN Reason: Sore Throat Last Admin: 08/28/18 01:50 Dose: 1 lavelle Ciprofloxacin (Cipro) 500 mg PO Q12 FRANNIE; Protocol Stop: 08/29/18 12:37 Last Admin: 08/28/18 21:48 Dose: 500 mg Docusate Sodium (Colace) 100 mg PO DAILY FRANNIE Last Admin: 08/28/18 09:07 Dose: 100 mg Enoxaparin Sodium (Lovenox) 40 mg SC DAILY [facility]ANN[facility]; Protocol Last Admin: 08/28/18 09:07 Dose: 40 mg Lidocaine (Lidoderm) 1 ea TD DAILY [facility]ANNIE Last Admin: 08/28/18 17:47 Dose: 1 ea Metronidazole (Flagyl) 500 mg PO Q8 [facility]ANNIE; Protocol Last Admin: 08/29/18 05:35 Dose: 500 mg Oxycodone HCl (Oxycodone Immediate Release Tab) 5 mg PO Q6H PRN PRN Reason: Pain, severe (8-10) Last Admin: 08/29/18 05:40 Dose: 5 mg - Labs Labs: 08/28/18 06:45 08/28/18 06:45 PT 12.7 SECONDS (9.4-12.5) H 08/26/18 06:00 INR 1.10 08/26/18 06:00 APTT 30.3 Seconds (25.1-36.5) 08/26/18 06:00 - Constitutional Appears: Non-toxic, No Acute Distress - Head Exam Head Exam: ATRAUMATIC - Eye Exam Eye Exam: EOMI. absent: Scleral icterus - ENT Exam ENT Exam: Mucous Membranes Moist - Respiratory Exam Respiratory Exam: NORMAL BREATHING PATTERN. absent: Accessory Muscle Use, Respiratory Distress - Cardiovascular Exam Cardiovascular Exam: REGULAR RHYTHM, +S1, +S2. absent: Bradycardia, Tachycardia - GI/Abdominal Exam GI & Abdominal Exam: Soft, Tenderness (tenderness around incision). absent: Distended, Firm, Guarding, Rigid - Neurological Exam Neurological Exam: Alert, Awake, Oriented x3 - Psychiatric Exam Psychiatric exam: Normal Affect - Skin Skin Exam: Intact Assessment and Plan - Assessment and Plan (Free Text) Assessment: 28F s/p ventral hernia repair w/ mesh POD#3 Plan: - c/w abx - trend leukocytosis - encourage OOB and ambulation - further recs per Dr. Tobar surgical attending PGY2
--- NOTE | 2018-08-29 07:12 | CP.PCM.DIS ---
Provider - Provider Date of Admission: 08/25/18 14:04 Attending physician: Marcos Tobar MD Primary care physician: NO PRIMARY CARE PROVIDER Consults: 08/25/18 19:34 Consult [Physician Consult] Routine Comment: Consulting Provider: Mirza Erwin Consulting Physician: Mirza Erwin Reason for Consult: Medical Managment Time Spent in preparation of Discharge (in minutes): 47 Hospital Course - Lab Results Lab Results: Micro Results 08/25/18 14:40 Blood Blood Culture - Preliminary NO GROWTH AFTER 3 DAYS 08/25/18 14:20 Blood Blood Culture - Preliminary NO GROWTH AFTER 3 DAYS 08/26/18 14:00 Peritoneal Fluid Anaerobic Culture - Final NO ANAEROBES ISOLATED. 08/25/18 10:25 Urine Urine Culture - Final No Growth (<1,000 CFU/ML) Most Recent Lab Values WBC 13.6 10^3/uL (4.5-11.0) H 08/28/18 06:45 RBC 4.47 10^6/uL (3.5-6.1) 08/28/18 06:45 Hgb 12.1 g/dL (12.0-16.0) 08/28/18 06:45 Hct 37.7 % (36.0-48.0) 08/28/18 06:45 MCV 84.3 fl (80.0-105.0) 08/28/18 06:45 MCH 27.1 pg (25.0-35.0) 08/28/18 06:45 MCHC 32.1 g/dl (31.0-37.0) 08/28/18 06:45 RDW 14.0 % (11.5-14.5) 08/28/18 06:45 Plt Count 313 10^3/uL (120.0-450.0) 08/28/18 06:45 MPV 8.9 fl (7.0-11.0) 08/28/18 06:45 Gran % 77.4 % (50.0-68.0) H 08/28/18 06:45 Lymph % (Auto) 14.8 % (22.0-35.0) L 08/28/18 06:45 Mower % (Auto) 6.5 % (1.0-6.0) H 08/28/18 06:45 Eos % (Auto) 1.2 % (1.5-5.0) L 08/28/18 06:45 Baso % (Auto) 0.1 % (0.0-3.0) 08/28/18 06:45 Gran # 10.53 (1.4-6.5) H 08/28/18 06:45 Lymph # (Auto) 2.0 (1.2-3.4) 08/28/18 06:45 Mower # (Auto) 0.9 (0.1-0.6) H 08/28/18 06:45 Eos # (Auto) 0.2 (0.0-0.7) 08/28/18 06:45 Baso # (Auto) 0.02 K/mm3 (0.0-2.0) 08/28/18 06:45 PT 12.7 SECONDS (9.4-12.5) H 08/26/18 06:00 INR 1.10 08/26/18 06:00 APTT 30.3 Seconds (25.1-36.5) 08/26/18 06:00 Sodium 137 mmol/L (132-148) 08/28/18 06:45 Potassium 3.8 mmol/L (3.6-5.0) 08/28/18 06:45 Chloride 105 mmol/L (98-107) 08/28/18 06:45 Carbon Dioxide 27 mmol/L (21-33) 08/28/18 06:45 Anion Gap 9 (10-20) L 08/28/18 06:45 BUN 6 mg/dL (7-21) L 08/28/18 06:45 Creatinine 0.6 mg/dl (0.7-1.2) L 08/28/18 06:45 Est GFR ( Amer) > 60 08/28/18 06:45 Est GFR (Non-Af Amer) > 60 08/28/18 06:45 Random Glucose 106 mg/dL (70-110) 08/28/18 06:45 Calcium 8.5 mg/dL (8.4-10.5) 08/28/18 06:45 Magnesium 1.8 mg/dL (1.7-2.2) 08/25/18 10:25 Total Bilirubin 0.4 mg/dL (0.2-1.3) 08/25/18 10:25 AST 24 U/L (14-36) 08/25/18 10:25 ALT 20 U/L (7-56) 08/25/18 10:25 Alkaline Phosphatase 89 U/L (38-126) 08/25/18 10:25 Total Protein 8.0 g/dL (5.8-8.3) 08/25/18 10:25 Albumin 4.0 g/dL (3.0-4.8) 08/25/18 10:25 Globulin 4.0 gm/dL 08/25/18 10:25 Albumin/Globulin Ratio 1.0 (1.1-1.8) L 08/25/18 10:25 Amylase 58 U/L (35-125) 08/25/18 10:25 Lipase 25 U/L (23-300) 08/25/18 10:25 Beta HCG, Quant < 2.39 mIU/mL (0-6.15) 08/25/18 18:59 Urine Color Yellow (YELLOW) 08/25/18 10:25 Urine Appearance Sl cloudy (CLEAR) 08/25/18 10:25 Urine pH 6.5 (4.7-8.0) 08/25/18 10:25 Ur Specific [place] 1.025 (1.005-1.035) 08/25/18 10:25 Urine Protein 100 mg/dL (<30 mg/dL) H 08/25/18 10:25 Urine Glucose (UA) Negative mg/dL (NEGATIVE) 08/25/18 10:25 Urine Ketones Negative mg/dL (NEGATIVE) 08/25/18 10:25 Urine Blood Large (NEGATIVE) H 08/25/18 10:25 Urine Nitrate Negative (NEGATIVE) 08/25/18 10:25 Urine Bilirubin Negative (NEGATIVE) 08/25/18 10:25 Urine Urobilinogen 0.2 E.U./dL (<1 E.U./dL) 08/25/18 10:25 Ur Leukocyte Esterase Negative [place]/uL (NEGATIVE) 08/25/18 10:25 Urine RBC Tntc /hpf (0-2) H 08/25/18 10:25 Urine WBC 0 - 2 /hpf (0-6) 08/25/18 10:25 Ur Epithelial Cells 6 - 8 /hpf (0-5) H 08/25/18 10:25 Amorphous Sediment Few /hpf (NONE) 08/25/18 10:25 Urine Bacteria Many /hpf (NONE) 08/25/18 10:25 Urine Other Fiber /hpf 08/25/18 10:25 Blood Type O POSITIVE 08/25/18 18:59 Antibody Screen Negative 08/25/18 18:59 BBK History Checked Patient has bt 08/25/18 18:59 - Hospital Course Hospital Course: 28F pmhx initially presented to [facility] w/ abdominal pain, nausea vomiting, and a bump on her belly that started becoming painful. Unable to reduce at bedside. Work up in ED, CT scan showed ventral hernia w/ bowel contents within the defect. Decision was made to take the patient to the operating room for ventral hernia repair with mesh. Post operatively patient was kept on antibiotics and WBC trending down. De-eseclated to PO abx and analgesia. Pt admits to having normal bowel function. Incision remains C/D/I on POD#3. Hospital stay: medicine was consulted, recommendations to follow up as an outpatient after incidental findings of adenexal masses. Patient cleared for discharge and set to follow up in 10 days in clinic. Discharge Exam - Head Exam Head Exam: ATRAUMATIC, NORMAL INSPECTION, NORMOCEPHALIC - Eye Exam Eye Exam: EOMI. absent: Scleral icterus - ENT Exam ENT Exam: Mucous Membranes Moist - Respiratory Exam Respiratory Exam: absent: Accessory Muscle Use, Respiratory Distress - Cardiovascular Exam Cardiovascular Exam: REGULAR RHYTHM, +S1, +S2. absent: Bradycardia, Tachycardia - GI/Abdominal Exam GI & Abdominal Exam: Tenderness (mild tenderness around incision. Incision C/ D/I). absent: Distended, Firm, Guarding, Hernia - Neurological Exam Neurological exam: Alert, Oriented x3 - Psychiatric Exam Psychiatric exam: Normal Affect - Skin Skin Exam: Intact, Warm Discharge Plan - Discharge Medications Prescriptions: Albuterol HFA [Ventolin HFA 90 mcg/actuation (8 g)] 2 puff IH [id number] PRN 30 Days puff PRN Reason: Shortness Of Breath Ciprofloxacin [Cipro] 500 mg PO Q12H 7 Days tab Metronidazole [Flagyl] 500 mg PO Q8H 7 Days tablet - Follow Up Plan Condition: GOOD Disposition: HOME/ ROUTINE Instructions: Hernia Repair (DC), Small Bowel Obstruction (DC), Flu Vaccine Additional Instructions: Do Not drink any alcohol while taking antibiotics. Follow up with Dr. Tobar in clinic in 1-2 weeks Patient to follow up with primary care doctor or mortgage specialist for further work up and imaging of bilateral adnexal masses seen on CT abd/pelvis. Patient to follow up with primary care doctor for Chest CT imaging for pulmonary nodule seen on CT abd/pelvis. Patient highly encouraged to stop smoking. Referrals: PCP,NO [Primary Care Provider] - Marcos Tobar MD [Staff Provider] -
[2018-08-29 07:37] LABS: BLOOD UREA NITROGEN 12 mg/dL (7-21); CALCIUM 8.6 mg/dL (8.4-10.5); GFR NON-AFRICAN AMERICAN > 60
[2018-08-29 08:52] VITALS: BP 120/75; PULSE 84; TEMP 98.4; O2SAT 97
[2018-08-29] MEDS: Lidocaine 5% Patch TD SCH (13:30)
[2018-08-29] MEDS: Enoxaparin 40 mg Syringe SC SCH (13:31)
== END 2018-08-29 18:50 | disposition home or self-care (01) | DRG 227 ==
LOC: ED 09:12 → ERH 14:04 → 5RNO 15:58
PROVIDERS: ADMIT Surgery; ATTEND Surgery
PROC: 0DBU0ZZ Excision of Omentum, Open Approach (ICD-10-PCS; 2018-08-26)
PROC: 0WUF0JZ Supplement Abdominal Wall with Synthetic Substitute, Open Approach (ICD-10-PCS; principal; 2018-08-26 10:30)
DX: K43.6 Other and unspecified ventral hernia with obstruction, without gangrene (principal); J45.909 Unspecified asthma, uncomplicated; F17.200 Nicotine dependence, unspecified, uncomplicated; R91.1 Solitary pulmonary nodule; D72.829 Elevated white blood cell count, unspecified; E66.01 Morbid (severe) obesity due to excess calories; Z68.42 Body mass index [BMI] 45.0-49.9, adult

== ENCOUNTER 2018-09-04 22:44 | Inpatient (IN) | payer OTHER ==
[2018-09-05] MEDS ORDERED: Sodium Chloride 0.9% 500 ML IV STA (00:25)
[2018-09-05 01:01] LABS: BASO # 0.03 K/mm3 (0.0-2.0); BASO % 0.2 % (0.0-3.0); EOS # 0.3 (0.0-0.7); EOS % 2.3 % (1.5-5.0); GRAN % 62.8 % (50.0-68.0); HEMOGLOBIN 12.7 g/dL (12.0-16.0); LYMPH # 3.8 (1.2-3.4); MEAN CELL VOLUME 84.4 fl (80.0-105.0); MEAN CORPUSCULAR HEMOGLOBIN 27.1 pg (25.0-35.0); MEAN CORPUSCULAR HGB CONC 32.1 g/dl (31.0-37.0); MEAN PLATELET VOLUME 8.7 fl (7.0-11.0); MONO # 0.6 (0.1-0.6); MONO % 4.7 % (1.0-6.0); RBC 4.69 10^6/uL (3.5-6.1); RED CELL DISTRIBUTION WIDTH 13.5 % (11.5-14.5); WHITE BLOOD COUNT 12.8 10^3/uL (4.5-11.0)
[2018-09-05 01:41] LABS: ALBUMIN 3.7 g/dL (3.0-4.8); ALT/SGPT 26 U/L (7-56); AST/SGOT 30 U/L (14-36); BLOOD UREA NITROGEN 16 mg/dL (7-21); CALCIUM 8.9 mg/dL (8.4-10.5); GFR NON-AFRICAN AMERICAN > 60
[2018-09-05 01:46] LABS: URINE BILIRUBIN NEGATIVE (NEGATIVE); URINE BLOOD LARGE (NEGATIVE); URINE GLUCOSE (UA) NEGATIVE (NEGATIVE); URINE LEUKOCYTE ESTERASE NEGATIVE Leu/uL (NEGATIVE); URINE PROTEIN 30 mg/dL (<30 mg/dL); URINE UROBILINOGEN 0.2 E.U./dL (<1 E.U./dL)
[2018-09-05 01:50] LABS: URINE APPEARANCE SL CLOUDY (CLEAR); URINE COLOR YELLOW (YELLOW)
[2018-09-05] MEDS ORDERED: Iohexol 350 MG/100 ML VIAL ONE (01:54)
[2018-09-05 01:58] LABS: URINE RBC TNTC /hpf (0-2); URINE WBC 0 - 2 /hpf (0-6)
[2018-09-05 01:59] LABS: URINE BACTERIA RARE /hpf
[2018-09-05] MEDS ORDERED: Piperacillin/Tazobact 3.375 gm 100 ML IVPB STA (03:32)
[2018-09-05] MEDS ORDERED: Vancomycin 1gm in NS 250ml 1 GM/250 ML BAG IVPB STA (03:32)
[2018-09-05] MEDS ORDERED: Morphine 2 mg/ml ISec IVP STA (03:33)
--- NOTE | 2018-09-05 03:44 | ED PDOC ---
Arrival/HPI <Felix Combs - Last Filed: 09/05/18 03:53> - General Historian: Patient, Family - History of Present Illness Narrative History of Present Illness (Text): 09/05/18 03:57 28-year-old female presents today with worsening abdominal pain for the past 2 days. Patient states she had surgery for bowel obstruction on 08/27/2018 and had verenice removed on 08/29/2018 and was started on 2 different types of antibiotics. Patient states she has been taking those antibiotics and today noticed that she is now having a discharge coming from the wound. Patient is complaining of worsening abdominal pain surrounding the wound. Patient denies fevers or chills. No chest pain or shortness of breath. She denies leg swelling. No headaches dizziness or weakness. Time/Duration: Other (2 days) Symptom Onset: Gradual Symptom Course: Worsening Severity Level: 7 <Nazia Goodwin - Last Filed: 09/05/18 04:34> - General Chief Complaint: Abnormal Skin Integrity Time Seen by Provider: 09/04/18 23:00 Past Medical History - Provider Review Nursing Documentation Reviewed: Yes - Travel History Have you recently traveled outside [place] w/in the past 3 mons?: No - Past History Past History: Non-Contributing - Infectious Disease Hx of Infectious Diseases: None - Tetanus Immunization Tetanus Immunization: Unknown - Cardiac Hx Cardiac Disorders: No - Pulmonary Hx Respiratory Disorders: Yes Hx Asthma: Yes Hx Bronchitis: Yes - Neurological Hx Neurological Disorder: Yes Hx Migraine: Yes - HEENT Hx HEENT Disorder: No - Renal Hx Renal Disorder: No - Endocrine/Metabolic Hx Endocrine Disorders: No - Hematological/Oncological Hx Blood Transfusion Reaction: No - Integumentary Hx Dermatological Disorder: No - Musculoskeletal/Rheumatological Hx Musculoskeletal Disorders: Yes Hx Back Pain: Yes Hx Falls: No - Gastrointestinal Hx Gastrointestinal Disorders: Yes (gallstones) Hx Gall Bladder Disease: Yes (CHOLECYSTECTOMY) - Genitourinary/Gynecological Hx Genitourinary Disorders: Yes (fibroid uterus) - Psychiatric Hx Psychophysiologic Disorder: No Hx Substance Use: No - Past Surgical History Past Surgical History: No Previous - Surgical History Hx Cholecystectomy: Yes (within the last 5 years) - Anesthesia Hx Anesthesia Reactions: No Hx Malignant Hyperthermia: No - Suicidal Assessment Feels Threatened In Home Enviroment: No <Nazia Goodwin - Last Filed: 09/05/18 04:34> Family/Social History - Physician Review Nursing Documentation Reviewed: Yes Family/Social History: Unknown Family HX Smoking Status: Light Smoker < 10 Cigarettes Daily Hx Alcohol Use: Yes Hx Substance Use: No Hx Substance Use Treatment: No <Nazia Goodwin - Last Filed: 09/05/18 04:34> Allergies/Home Meds <Felix Combs - Last Filed: 09/05/18 03:53> <Nazia Goodwin - Last Filed: 09/05/18 04:34> Allergies/Adverse Reactions: Allergies No Known Allergies Allergy (Verified 09/04/18 23:02) Home Medications: Home Meds Medication Instructions Recorded Confirmed Fluticasone/Salmeterol 250/50 1 inh INH BID 09/04/16 09/04/18 [Advair Diskus 250/50] oxyCODONE/Acetaminophen 1/2TAB 0.5 ea PO Q6 PRN 09/04/18 09/04/18 [Percocet 5-325 mg HALF TAB] Review of Systems - Review of Systems Constitutional: absent: Fatigue, Fevers Respiratory: absent: SOB, Cough Cardiovascular: absent: Chest Pain Gastrointestinal: Abdominal Pain. absent: Constipation, Diarrhea, Nausea, Vomiting Genitourinary Female: absent: Dysuria, Frequency, Hematuria Musculoskeletal: absent: Arthralgias, Back Pain, Neck Pain Skin: absent: Rash, Pruritis Neurological: absent: Headache, Dizziness Psychiatric: absent: Anxiety, Depression <Nazia Goodwin - Last Filed: 09/05/18 04:34> Physical Exam Vital Signs Temp Pulse Resp BP Pulse Ox 09/05/18 02:40 98 F 90 18 132/68 98 09/04/18 23:05 99.5 F 93 H 18 134/83 100 <Felix Combs - Last Filed: 09/05/18 03:53> Vital Signs Reviewed: Yes Vital Signs Temp Pulse Resp BP Pulse Ox 09/05/18 02:40 98 F 90 18 132/68 98 09/04/18 23:05 99.5 F 93 H 18 134/83 100 Temperature: Afebrile Blood Pressure: Normal Pulse: Regular Respiratory Rate: Normal Appearance: Positive for: Well-Appearing, Non-Toxic, Comfortable Pain Distress: None Mental Status: Positive for: Alert and Oriented X 3 - Systems Exam Head: Present: Atraumatic Mouth: Present: Moist Mucous Membranes Neck: Present: Normal Range of Motion Respiratory/Chest: Present: Clear to Auscultation, Good Air Exchange. No: Respiratory Distress, Accessory Muscle Use Cardiovascular: Present: Regular Rate and Rhythm, Normal S1, S2. No: Murmurs Abdomen: Present: Tenderness (+ diffuse tenderness greatest along the midline and lower abdomen.), Other (there is a midline incision with steristrips in place with slight yellow discharge noted; + palpable tender mass to the right of the inscision. ). No: Distention, Peritoneal Signs, Rebound Back: Present: Normal Inspection Upper Extremity: Present: Normal ROM Lower Extremity: Present: Normal ROM Neurological: Present: GCS=15, Speech Normal Skin: Present: Warm, Dry Psychiatric: Present: Alert, Oriented x 3 <Nazia Goodwin T - Last Filed: 09/05/18 04:34> Medical Decision Making - Lab Interpretations Lab Results: Total Bilirubin 0.2 mg/dL (0.2-1.3) 09/05/18 00:45 AST 30 U/L (14-36) 09/05/18 00:45 ALT 26 U/L (7-56) 09/05/18 00:45 Alkaline Phosphatase 88 U/L (38-126) 09/05/18 00:45 Total Protein 7.5 g/dL (5.8-8.3) 09/05/18 00:45 Albumin 3.7 g/dL (3.0-4.8) 09/05/18 00:45 Globulin 3.8 gm/dL 09/05/18 00:45 Albumin/Globulin Ratio 1.0 (1.1-1.8) L 09/05/18 00:45 Urine Color Yellow (YELLOW) 09/05/18 00:30 Urine Appearance Sl cloudy (CLEAR) 09/05/18 00:30 Urine pH 8.0 (4.7-8.0) 09/05/18 00:30 Ur Specific [place] 1.025 (1.005-1.035) 09/05/18 00:30 Urine Protein 30 mg/dL (<30 mg/dL) H 09/05/18 00:30 Urine Glucose (UA) Negative mg/dL (NEGATIVE) 09/05/18 00:30 Urine Ketones Negative mg/dL (NEGATIVE) 09/05/18 00:30 Urine Blood Large (NEGATIVE) H 09/05/18 00:30 Urine Nitrate Negative (NEGATIVE) 09/05/18 00:30 Urine Bilirubin Negative (NEGATIVE) 09/05/18 00:30 Urine Urobilinogen 0.2 E.U./dL (<1 E.U./dL) 09/05/18 00:30 Ur Leukocyte Esterase Negative [place]/uL (NEGATIVE) 09/05/18 00:30 Urine RBC Tntc /hpf (0-2) H 09/05/18 00:30 Urine WBC 0 - 2 /hpf (0-6) 09/05/18 00:30 Ur Epithelial Cells 3 - 4 /hpf (0-5) 09/05/18 00:30 Urine Bacteria Rare /hpf (NONE) 09/05/18 00:30 - RAD Interpretation Radiology Orders: 09/05/18 00:24 ABD & PELVIS IV CONTRAST ONLY [CT] Stat - Medication Orders Current Medication Orders: Vancomycin HCl (Vancomycin 1gm) 1 gm in 250 mls @ 167 mls/hr IVPB STAT STA; Protocol Stop: 09/05/18 05:01 Piperacillin Sod/Tazobactam Sod (Zosyn 3.375 In Ns 100ml) 100 mls @ 200 mls/hr IVPB STAT STA; Protocol Stop: 09/05/18 04:01 Discontinued Medications Sodium Chloride (Sodium Chloride 0.9%) 500 mls @ 999 mls/hr IV .Q31M STA Stop: 09/05/18 00:55 Last Admin: 09/05/18 00:45 Dose: 999 mls/hr eMAR Start Stop Document 09/05/18 00:45 OCS (Rec: 09/05/18 00:45 OCS [facility]-20) Intravenous Solution Start Date 09/05/18 Start Time 00:45 End Date 09/05/18 End time 01:15 Total Infusion Time 30 Morphine Sulfate (Morphine) 2 mg IVP STAT STA Stop: 09/05/18 03:34 <Felix Combs - Last Filed: 09/05/18 03:53> ED Course and Treatment: 09/05/18 03:44 28yr old female with worsening abdominal pain and discharge from surgical site. cbc; wbc:12.8 cmp wnl blood cultures pending. case discussed with certified surgical tech/first assistant who saw patient at beside CT abd/pelvis COMMENTS: Surgical changes of anterior abdominal wall from a hernia repair. 6.2x4.0 cm well defined fluid collection underlying the subcutaneous fat of the anterior abdominal wall surrounding the umbilicus at the site of intervention. Probably a seroma. Mild surrounding fat stranding. Right colectomy. The liver is of uniform attenuation without mass or defect. There is no intra or extrahepatic biliary ductal dilatation. The spleen is normal. The pancreas is of normal contour and attenuation characteristics. There is no evidence of adrenal mass. Both kidneys demonstrate prompt and equal nephrograms. The kidneys are normal in size, shape and configuration. There is no evidence of renal or ureteral mass. No renal or ureteral calculi are identified. There is no hydroureter or hydronephrosis. No evidence for appendicitis. There is no bowel wall thickening. No evidence for small or large bowel obstruction. There is no evidence of abdominal ascites or lymphadenopathy. There is no evidence of intrinsic or extrinsic bladder mass. There is no pelvic ascites or lymphadenopathy. 6.5 x 4.7 cm right broad ligament/adnexal pedunculated fibroid. Unchanged. Images of the lung bases show no evidence of pleural or parenchymal mass. There are no pleural effusions. The bony structures are free of lytic or blastic lesions. IMPRESSION: Surgical repair of anterior abdominal wall hernia. Subcutaneous fluid collection in the topography of the surgical bed, probably a seroma. Diffuse edema of the subcutaneous fat of the anterior abdominal wall. Electronically signed on Sep 05, 2018 3:19:10 AM EST by: Bernard Ardon M.D., Certified by ABR, MSK, Neuroradiology all results discussed with patient in depth; will admit patient observational status for surgical consult based on leukocytosis will give dose of IV vanco and zosyn. pt seen and evaluated by dr. combs. case discussed with dr. walker; accepts observational status admission for abdominal pain, s/p surgery with possible seroma vs abscess All aspects of this case were discussed the attending of record. impression; abdominal pain, leukocytosis, seroma admit observational status - Lab Interpretations Lab Results: Total Bilirubin 0.2 mg/dL (0.2-1.3) 09/05/18 00:45 AST 30 U/L (14-36) 09/05/18 00:45 ALT 26 U/L (7-56) 09/05/18 00:45 Alkaline Phosphatase 88 U/L (38-126) 09/05/18 00:45 Total Protein 7.5 g/dL (5.8-8.3) 09/05/18 00:45 Albumin 3.7 g/dL (3.0-4.8) 09/05/18 00:45 Globulin 3.8 gm/dL 09/05/18 00:45 Albumin/Globulin Ratio 1.0 (1.1-1.8) L 09/05/18 00:45 Urine Color Yellow (YELLOW) 09/05/18 00:30 Urine Appearance Sl cloudy (CLEAR) 09/05/18 00:30 Urine pH 8.0 (4.7-8.0) 09/05/18 00:30 Ur Specific [place] 1.025 (1.005-1.035) 09/05/18 00:30 Urine Protein 30 mg/dL (<30 mg/dL) H 09/05/18 00:30 Urine Glucose (UA) Negative mg/dL (NEGATIVE) 09/05/18 00:30 Urine Ketones Negative mg/dL (NEGATIVE) 09/05/18 00:30 Urine Blood Large (NEGATIVE) H 09/05/18 00:30 Urine Nitrate Negative (NEGATIVE) 09/05/18 00:30 Urine Bilirubin Negative (NEGATIVE) 09/05/18 00:30 Urine Urobilinogen 0.2 E.U./dL (<1 E.U./dL) 09/05/18 00:30 Ur Leukocyte Esterase Negative [place]/uL (NEGATIVE) 09/05/18 00:30 Urine RBC Tntc /hpf (0-2) H 09/05/18 00:30 Urine WBC 0 - 2 /hpf (0-6) 09/05/18 00:30 Ur Epithelial Cells 3 - 4 /hpf (0-5) 09/05/18 00:30 Urine Bacteria Rare /hpf (NONE) 09/05/18 00:30 - RAD Interpretation Radiology Orders: 09/05/18 00:24 ABD & PELVIS IV CONTRAST ONLY [CT] Stat - Medication Orders Current Medication Orders: Vancomycin HCl (Vancomycin 1gm) 1 gm in 250 mls @ 167 mls/hr IVPB STAT STA; Protocol Stop: 09/05/18 05:01 Piperacillin Sod/Tazobactam Sod (Zosyn 3.375 In Ns 100ml) 100 mls @ 200 mls/hr IVPB STAT STA; Protocol Stop: 09/05/18 04:01 Discontinued Medications Sodium Chloride (Sodium Chloride 0.9%) 500 mls @ 999 mls/hr IV .Q31M STA Stop: 09/05/18 00:55 Last Admin: 09/05/18 00:45 Dose: 999 mls/hr eMAR Start Stop Document 09/05/18 00:45 OCS (Rec: 09/05/18 00:45 [facility] [place] Intravenous Solution Start Date 09/05/18 Start Time 00:45 End Date 09/05/18 End time 01:15 Total Infusion Time 30 Morphine Sulfate (Morphine) 2 mg IVP STAT STA Stop: 09/05/18 03:34 <Nazia Goodwin - Last Filed: 09/05/18 04:34> - PA / PARTS IDENTIFIER / Resident Statement BRADY has reviewed & agrees with the documentation as recorded. BRADY has examined the patient and agrees with the treatment plan. <Felix Combs - Last Filed: 09/05/18 03:53> Disposition/Present on Arrival <Felix Combs - Last Filed: 09/05/18 03:53> - Present on Arrival Any Indicators Present on Arrival: No History of DVT/PE: No History of Uncontrolled Diabetes: No Urinary Catheter: No History of Decub. Ulcer: No History Surgical Site Infection Following: None - Disposition Have Diagnosis and Disposition been Completed?: Yes Disposition Time: 02:30 Patient Plan: Observation <Nazia Goodwin - Last Filed: 09/05/18 04:34> - Disposition Diagnosis: Abdominal pain, Leukocytosis Disposition: HOSPITALIZED Condition: FAIR
--- NOTE | 2018-09-05 04:00 | CP.PCM.HP ---
History of Present Illness - History of Present Illness History of Present Illness: PGY-[address] Erwin CC: Surgical wound infection Ms Vela, 28 F with PMHX of active smoker with asthma, recent repair of incisional ventral hernia that was incarcerated by Dr Tobar (08/26/18) verenice removed (08/29/18) c/o abdominal pain and discharge from surgical site. She is on cipro and flagyl day 6 toady. After verenice removed, pain become stronger, and much drainage with pus leaked from surgical wound, striking through dressings and staining her clothers. No noxious smell from the wounds. Denies animal contact. Wound dressing change by pt and family. She has formed loose stool after initiation of cipro/flagyl, but she had watery diarrhea x 1 day. ROS: (+) subjective fever. Denies CP, SOB, N/V/C, dysuria. (+) watery diarrhea In the ED, Tmax 99.5, HR 93, WBC 12.8, CMP unremarkable U/A (+) blood/rbc (-)leuk/nit CT showed subcutanoues fluid collection, ?seroma and diffuse edema of subcutanous fat of anterior abdominal wall ED given morphine 2mg x 1, NS 1L, Vanco and zosyn OBGYN: , currently menstruating, lesbian, stable sexual partner, denied STDs, no vaginal discharge/rash PMHx: asthma, mild/intermittent, last use nebulizer/inhaler 1 year ago. never intubated fibroid uterus active smoker hx lung nodules, 4mm R lower lobe nodule, subpleural (CT 08/25/18) PSHx: Ventral hernia repair (08/26/17) cholecystectomy 2012 FamHx: Mother - HTN, DM, Hypothyroidism, Asthma, Dad - HTN, DM SH: 1/3 ppd x 14 years, active smoker. Denies alcohol or illicit drug use All: NKDA Meds: percocet 5/325, 1/2 tab q6 methocarbamol (muscle relaxant) fluticasone/salmetreol (advir) albuterol PMD - none. lost insurance 2 years ago. Present on Admission - Present on Admission Any Indicators Present on Admission: Yes History Surgical Site Infection Following: None - Notes: Notes:: incisional ventral hernia Past Patient History - Infectious Disease Hx of Infectious Diseases: None - Tetanus Immunizations Tetanus Immunization: Unknown - Past Social History Smoking Status: Light Smoker < 10 Cigarettes Daily - CARDIAC Hx Cardiac Disorders: No - PULMONARY Hx Respiratory Disorders: Yes Hx Asthma: Yes Hx Bronchitis: Yes - NEUROLOGICAL Hx Neurological Disorder: Yes Hx Migraine: Yes - HEENT Hx HEENT Problems: No - RENAL Hx Chronic Kidney Disease: No - ENDOCRINE/METABOLIC Hx Endocrine Disorders: No - HEMATOLOGICAL/ONCOLOGICAL Hx Blood Transfusion Reaction: No - INTEGUMENTARY Hx Dermatological Problems: No - MUSCULOSKELETAL/RHEUMATOLOGICAL Hx Musculoskeletal Disorders: Yes Hx Back Pain: Yes Hx Falls: No - GASTROINTESTINAL Hx Gastrointestinal Disorders: Yes (gallstones) Hx Gall Bladder Disease: Yes (CHOLECYSTECTOMY) - GENITOURINARY/GYNECOLOGICAL Hx Genitourinary Disorders: Yes (fibroid uterus) - PSYCHIATRIC Hx Psychophysiologic Disorder: No Hx Substance Use: No - SURGICAL HISTORY Hx Cholecystectomy: Yes (within the last 5 years) - ANESTHESIA Hx Anesthesia Reactions: No Hx Malignant Hyperthermia: No Meds Allergies/Adverse Reactions: Allergies Allergy/AdvReac Type Severity Reaction Status Date / Time No Known Allergies Allergy Verified 09/04/18 23:02 Physical Exam - Constitutional Appears: No Acute Distress - Head Exam Head Exam: ATRAUMATIC, NORMAL INSPECTION, NORMOCEPHALIC - Eye Exam Eye Exam: EOMI, Normal appearance, PERRL. absent: Scleral icterus Pupil Exam: NORMAL ACCOMODATION - ENT Exam ENT Exam: Mucous Membranes Moist - Neck Exam Additional comments: supple - Respiratory Exam Respiratory Exam: Clear to Auscultation Bilateral, NORMAL BREATHING PATTERN. absent: Rales, Rhonchi, Wheezes - Cardiovascular Exam Cardiovascular Exam: REGULAR RHYTHM, +S1, +S2 - GI/Abdominal Exam GI & Abdominal Exam: Hypoactive Bowel Sounds, Soft, Tenderness (mid hypogastric). absent: Distended, Firm, Guarding, Rigid Additional comments: serosanguinus drainage on dressing with yellow pus. increase erythema and warmth on skin - Extremities Exam Extremities exam: Negative for: calf tenderness, pedal edema - Back Exam Back exam: absent: CVA tenderness (L), CVA tenderness (R) - Neurological Exam Neurological exam: Alert, Oriented x3 - Psychiatric Exam Psychiatric exam: Normal Affect, Normal Mood - Skin Skin Exam: Dry, Warm Results - Vital Signs Recent Vital Signs: Last Vital Signs Temp 98 F 09/05/18 02:40 Pulse 90 01/15/19 02:40 Resp 18 09/05/18 02:40 BP 132/68 09/05/18 02:40 Pulse Ox 98 09/05/18 02:40 - Labs Result Diagrams: 09/05/18 00:45 09/05/18 00:45 Labs: Laboratory Results - last 24 hr 09/05/18 09/05/18 09/05/18 00:30 00:45 00:45 WBC 12.8 H RBC 4.69 Hgb 12.7 Hct 39.6 MCV 84.4 MCH 27.1 MCHC 32.1 RDW 13.5 Plt Count 425 MPV 8.7 Gran % 62.8 Lymph % (Auto) 30.0 [place] % (Auto) 4.7 Eos % (Auto) 2.3 Baso % (Auto) 0.2 Gran # 8.00 H Lymph # (Auto) 3.8 H [place] # (Auto) 0.6 Eos # (Auto) 0.3 Baso # (Auto) 0.03 Sodium 138 Potassium 4.0 Chloride 103 Carbon Dioxide 30 Anion Gap 9 L BUN 16 Creatinine 0.6 L Est GFR ( Amer) > 60 Est GFR (Non-Af Amer) > 60 Random Glucose 108 Calcium 8.9 Total Bilirubin 0.2 AST 30 ALT 26 Alkaline Phosphatase 88 Total Protein 7.5 Albumin 3.7 Globulin 3.8 Albumin/Globulin Ratio 1.0 L Urine Color Yellow Urine Appearance Sl cloudy Urine pH 8.0 Ur Specific [place] 1.025 Urine Protein 30 H Urine Glucose (UA) Negative Urine Ketones Negative Urine Blood Large H Urine Nitrate Negative Urine Bilirubin Negative Urine Urobilinogen 0.2 Ur Leukocyte Esterase Negative Urine RBC Tntc H Urine WBC 0 - 2 Ur Epithelial Cells 3 - 4 Urine Bacteria Rare Assessment & Plan - Assessment and Plan (Free Text) Plan: Ms Vela, 28 F with PMHX of active smoker with asthma, recent repair of incisional ventral hernia that was incarcerated by Dr Tobar (08/26/18) verenice removed (08/29/18) c/o abdominal pain and discharge from surgical site. She is on cipro and flagyl day 6 toady. She had watery diarrhea x 1 day. Sepsis due to Surgical wound infection, with purulent cellulitis and seroma - drainage and wound culture by surgery - follow on blood culture - vancomycin and merem (day 1) - pain control by home percocet - fever control by tylenol - ID consult Diarrhea - follow C. diff toxin Obesity - check A1C, lipid, TSH/Free T4 - dietitan career development counselor for healthy eating Hx asthma - duoneb prn Hx lung nodule, 4mm R lower lone nodule, and smoker - Consider outpatient CT chest, nicoderm, career development counselor for smoking cessation Prophylaxis - Lovenox/Protonix s/r/d/w Dr Erwin
[2018-09-05] MEDS ORDERED: Albuterol-Ipratrop 3 mg / 0.5 (3 ml) UD IH PRN (05:27)
[2018-09-05] MEDS: Pantoprazole 40 mg EC Tab PO SCH (06:13)
[2018-09-05] MEDS: Meropenem IV 1 gm in NS 1 GM/50 ML BAG IVPB SCH ×2 (06:14→14:41)
[2018-09-05] MEDS: Oxycodone/Acetaminophen 5/325 mg Tab PO PRN ×3 (06:16→20:59)
[2018-09-05 06:17] LABS: BASO # 0.04 K/mm3 (0.0-2.0); BASO % 0.3 % (0.0-3.0); EOS # 0.3 (0.0-0.7); EOS % 2.6 % (1.5-5.0); GRAN # 8.24 (1.4-6.5); GRAN % 63.6 % (50.0-68.0); HEMOGLOBIN 11.8 g/dL (12.0-16.0); LYMPH # 3.5 (1.2-3.4); LYMPH % 27.1 % (22.0-35.0); MEAN CELL VOLUME 84.1 fl (80.0-105.0); MEAN CORPUSCULAR HEMOGLOBIN 26.9 pg (25.0-35.0); MEAN PLATELET VOLUME 8.6 fl (7.0-11.0); MONO # 0.8 (0.1-0.6); MONO % 6.4 % (1.0-6.0); RBC 4.39 10^6/uL (3.5-6.1); RED CELL DISTRIBUTION WIDTH 13.4 % (11.5-14.5); VENOUS BLOOD GAS BASE EXCESS 1.5 mmol/L (0.0-2.0); VENOUS BLOOD GAS PO2 207 mm/Hg (30-55); VENOUS BLOOD PH 7.43 (7.32-7.43)
[2018-09-05 06:34] LABS: LDL CHOLESTEROL 65 mg/dL (0-129)
[2018-09-05 06:39] LABS: FREE T4 1.31 ng/dL (0.78-2.19)
[2018-09-05 06:43] LABS: ALBUMIN 3.5 g/dL (3.0-4.8); ALT/SGPT 29 U/L (7-56); AST/SGOT 23 U/L (14-36); BLOOD UREA NITROGEN 14 mg/dL (7-21); CALCIUM 8.5 mg/dL (8.4-10.5); GFR NON-AFRICAN AMERICAN > 60; HDL CHOLESTEROL 37 mg/dL (29-60); LIPASE 31 U/L (23-300)
[2018-09-05] MEDS ORDERED: Budesonide 0.5 mg/2 ml Inhal Susp UD IH SCH (08:00)
[2018-09-05] MEDS ORDERED: Arformoterol 15 mcg/2 ml Inh Sol IH SCH (08:00)
--- NOTE | 2018-09-05 08:21 | CP.PCM.CON ---
History of Present Illness - History of Present Illness History of Present Illness: Surgery: Dr. Chappell covering for Dr. Tobar CC: Abd pain HPI: 28F w. pmh of asthma, s/p open ventral hernia repair on 08/26/[address] Tobar presents to ED w. incisional pain. Pt states that the incision was becoming itchy and started to have some drainage. Yesterday she took a bath and states she scrubbed the incision repeatedly. This made her symptoms worse. She states that incision became much redder and there was increased drain output. She denies F/C. No N/V/D. PMHx: asthma PSHx: cholecystectomy 2012, ventral hernia repair Meds: see MAR Allergies: NKDA Social: +ETOH/tobacco, no drugs FamHx: non-contributory Review of Systems - Review of Systems All systems: reviewed and no additional remarkable complaints except (HPI) Past Patient History - Infectious Disease Hx of Infectious Diseases: None - Tetanus Immunizations Tetanus Immunization: Unknown - Past Social History Smoking Status: Light Smoker < 10 Cigarettes Daily - CARDIAC Hx Cardiac Disorders: No - PULMONARY Hx Respiratory Disorders: Yes Hx Asthma: Yes Hx Bronchitis: Yes - NEUROLOGICAL Hx Neurological Disorder: Yes Hx Migraine: Yes - HEENT Hx HEENT Problems: No - RENAL Hx Chronic Kidney Disease: No - ENDOCRINE/METABOLIC Hx Endocrine Disorders: No - HEMATOLOGICAL/ONCOLOGICAL Hx Blood Transfusion Reaction: No - INTEGUMENTARY Hx Dermatological Problems: No - MUSCULOSKELETAL/RHEUMATOLOGICAL Hx Musculoskeletal Disorders: Yes Hx Back Pain: Yes Hx Falls: No - GASTROINTESTINAL Hx Gastrointestinal Disorders: Yes (gallstones) Hx Gall Bladder Disease: Yes (CHOLECYSTECTOMY) - GENITOURINARY/GYNECOLOGICAL Hx Genitourinary Disorders: Yes (fibroid uterus) - PSYCHIATRIC Hx Psychophysiologic Disorder: No Hx Substance Use: No - SURGICAL HISTORY Hx Cholecystectomy: Yes (within the last 5 years) - ANESTHESIA Hx Anesthesia Reactions: No Hx Malignant Hyperthermia: No Meds Allergies/Adverse Reactions: Allergies Allergy/AdvReac Type Severity Reaction Status Date / Time No Known Allergies Allergy Verified 09/04/18 23:02 - Medications Medications: Current Medications Acetaminophen (Tylenol 325mg Tab) 650 mg PO Q6H PRN PRN Reason: Fever >100.4 F Albuterol/Ipratropium (Duoneb 3 Mg/0.5 Mg (3 Ml) Ud) 3 ml IH [id number] PRN PRN Reason: Shortness of Breath Arformoterol Tartrate (Brovana) 15 mcg IH [id number] [facility] Budesonide (Pulmicort Respules) 0.5 mg IH [id number] [facility] Enoxaparin Sodium (Lovenox) 40 mg SC DAILY [facility]; Protocol Meropenem (Merrem Iv 1 Gm Premix) 1 gm in 50 mls @ 100 mls/hr IVPB Q8 [facility]; Protocol Stop: 09/05/18 14:29 Last Admin: 09/05/18 06:14 Dose: 100 mls/hr Vancomycin HCl 1.25 gm/ Sodium (Chloride) 250 mls @ 167 mls/hr IVPB Q12H [facility]ANNIE Stop: 09/12/18 17:01 Nicotine (Nicoderm Cq) 1 patch TD DAILY [facility] Oxycodone/Acetaminophen (Percocet 5/325 Mg Tab) 0.5 tab PO Q6 PRN PRN Reason: Pain, severe (8-10) Stop: 09/08/18 05:25 Last Admin: 09/05/18 06:16 Dose: 0.5 tab Pantoprazole Sodium (Protonix Ec Tab) 40 mg PO 0600 [facility] Last Admin: 09/05/18 06:13 Dose: 40 mg Physical Exam - Constitutional Appears: Non-toxic, No Acute Distress - Head Exam Head Exam: ATRAUMATIC, NORMOCEPHALIC - Eye Exam Eye Exam: EOMI - ENT Exam ENT Exam: Mucous Membranes Moist - Neck Exam Neck exam: Positive for: Full Rom - Respiratory Exam Respiratory Exam: NORMAL BREATHING PATTERN. absent: Accessory Muscle Use, Respiratory Distress - GI/Abdominal Exam Additional comments: milka-incisional tenderness/erythema, +serous drainage, no odor - Extremities Exam Extremities exam: Negative for: calf tenderness, pedal edema - Neurological Exam Neurological exam: Alert, Oriented x3 Results - Vital Signs Recent Vital Signs: Last Vital Signs Temp 97.9 F 09/05/18 05:20 Pulse 89 09/05/18 05:20 Resp 20 09/05/18 05:20 BP 119/66 09/05/18 05:20 Pulse Ox 97 09/05/18 05:20 - Labs Result Diagrams: 09/05/18 05:48 09/05/18 05:48 Labs: Laboratory Results - last 24 hr 09/05/18 09/05/18 09/05/18 00:30 00:45 00:45 WBC 12.8 H RBC 4.69 Hgb 12.7 Hct 39.6 MCV 84.4 MCH 27.1 MCHC 32.1 RDW 13.5 Plt Count 425 MPV 8.7 Gran % 62.8 Lymph % (Auto) 30.0 [place] % (Auto) 4.7 Eos % (Auto) 2.3 Baso % (Auto) 0.2 Gran # 8.00 H Lymph # (Auto) 3.8 H [place] # (Auto) 0.6 Eos # (Auto) 0.3 Baso # (Auto) 0.03 pO2 VBG pH VBG pCO2 VBG HCO3 VBG Total CO2 VBG O2 Sat (Calc) VBG Base Excess VBG Potassium Glucose Lactate FiO2 Sodium 138 Potassium 4.0 Chloride 103 Carbon Dioxide 30 Anion Gap 9 L BUN 16 Creatinine 0.6 L Est GFR ( Amer) > 60 Est GFR (Non-Af Amer) > 60 Random Glucose 108 Calcium 8.9 Total Bilirubin 0.2 AST 30 ALT 26 Alkaline Phosphatase 88 Total Protein 7.5 Albumin 3.7 Globulin 3.8 Albumin/Globulin Ratio 1.0 L Triglycerides Cholesterol LDL Cholesterol Direct HDL Cholesterol Lipase Free T4 TSH 3rd Generation Venous Blood Potassium Urine Color Yellow Urine Appearance Sl cloudy Urine pH 8.0 Ur Specific [place] 1.025 Urine Protein 30 H Urine Glucose (UA) Negative Urine Ketones Negative Urine Blood Large H Urine Nitrate Negative Urine Bilirubin Negative Urine Urobilinogen 0.2 Ur Leukocyte Esterase Negative Urine RBC Tntc H Urine WBC 0 - 2 Ur Epithelial Cells 3 - 4 Urine Bacteria Rare 09/05/18 09/05/18 09/05/18 05:48 05:48 05:48 WBC 13.0 H RBC 4.39 Hgb 11.8 L Hct 36.9 MCV 84.1 MCH 26.9 MCHC 32.0 RDW 13.4 Plt Count 401 MPV 8.6 Gran % 63.6 Lymph % (Auto) 27.1 [place] % (Auto) 6.4 H Eos % (Auto) 2.6 Baso % (Auto) 0.3 Gran # 8.24 H Lymph # (Auto) 3.5 H [place] # (Auto) 0.8 H Eos # (Auto) 0.3 Baso # (Auto) 0.04 pO2 207 H VBG pH 7.43 VBG pCO2 39.0 L VBG HCO3 25.9 VBG Total CO2 27.1 VBG O2 Sat (Calc) 100.1 H VBG Base Excess 1.5 VBG Potassium 3.7 Glucose 117 H Lactate 1.2 FiO2 21.0 Sodium 138 137.0 Potassium 3.9 Chloride 107 107.0 Carbon Dioxide 25 Anion Gap 10 BUN 14 Creatinine 0.6 L Est GFR ( Amer) > 60 Est GFR (Non-Af Amer) > 60 Random Glucose 118 H Calcium 8.5 Total Bilirubin 0.2 AST 23 ALT 29 Alkaline Phosphatase 81 Total Protein 7.2 Albumin 3.5 Globulin 3.7 Albumin/Globulin Ratio 1.0 L Triglycerides 244 H Cholesterol 148 LDL Cholesterol Direct 65 HDL Cholesterol 37 Lipase 31 Free T4 TSH 3rd Generation Venous Blood Potassium 3.7 Urine Color Urine Appearance Urine pH Ur Specific [place] Urine Protein Urine Glucose (UA) Urine Ketones Urine Blood Urine Nitrate Urine Bilirubin Urine Urobilinogen Ur Leukocyte Esterase Urine RBC Urine WBC Ur Epithelial Cells Urine Bacteria 09/05/18 05:48 WBC RBC Hgb Hct MCV MCH MCHC RDW Plt Count MPV Gran % Lymph % (Auto) [place] % (Auto) Eos % (Auto) Baso % (Auto) Gran # Lymph # (Auto) [place] # (Auto) Eos # (Auto) Baso # (Auto) pO2 VBG pH VBG pCO2 VBG HCO3 VBG Total CO2 VBG O2 Sat (Calc) VBG Base Excess VBG Potassium Glucose Lactate FiO2 Sodium Potassium Chloride Carbon Dioxide Anion Gap BUN Creatinine Est GFR ( Amer) Est GFR (Non-Af Amer) Random Glucose Calcium Total Bilirubin AST ALT Alkaline Phosphatase Total Protein Albumin Globulin Albumin/Globulin Ratio Triglycerides Cholesterol LDL Cholesterol Direct HDL Cholesterol Lipase Free T4 1.31 TSH 3rd Generation 2.33 Venous Blood Potassium Urine Color Urine Appearance Urine pH Ur Specific [place] Urine Protein Urine Glucose (UA) Urine Ketones Urine Blood Urine Nitrate Urine Bilirubin Urine Urobilinogen Ur Leukocyte Esterase Urine RBC Urine WBC Ur Epithelial Cells Urine Bacteria - Imaging and Cardiology CT scan - abdomen Status: Image reviewed by me, Report reviewed by me Assessment & Plan - Assessment and Plan (Free Text) Assessment: 28F s/p ventral hernia repair 08/26/18, presenting w. superficial SSI -wound probed in ED, seroma drained, Cx taken -recommend warm compressed 20min TID -abx per ID -No Further surgical intervention at this time -d/w attending Zemaitis PGY4
--- NOTE | 2018-09-05 08:51 | CT ---
Date of service: 09/05/2018 PROCEDURE: CT Abdomen and Pelvis with contrast HISTORY: abd pain, s/p surgery 08/25. r/o abscess COMPARISON: CT 08/25/2018 TECHNIQUE: Contrast dose: 100 cc of Omni 350 Radiation dose: Total exam DLP = 890.27 mGy-cm. This CT exam was performed using one or more of the following dose reduction techniques: Automated exposure control, adjustment of the mA and/or kV according to patient size, and/or use of iterative reconstruction technique. FINDINGS: LOWER THORAX: Unremarkable. LIVER: Unremarkable. No gross lesion or ductal dilatation. GALLBLADDER AND BILE DUCTS: Unremarkable. PANCREAS: Unremarkable. No gross lesion or ductal dilatation. SPLEEN: Unremarkable. ADRENALS: Unremarkable. No mass. KIDNEYS AND URETERS: Unremarkable. No hydronephrosis. No solid mass. VASCULATURE: Unremarkable. No aortic aneurysm. No aortic atherosclerotic calcification or mural plaque present. BOWEL: Unremarkable. No obstruction. No gross mural thickening. APPENDIX: Normal appendix. PERITONEUM: There has been repair of the ventral hernia demonstrated previously. Subcutaneous edema can be seen in this area as well as several small fluid collections the largest measuring 22 x 44 mm. These could represent seromas. Abscess cannot be ruled out. There is no air within these collections to suggest abscess. There is a small amount of subcutaneous air extending to the skin surface LYMPH NODES: Unremarkable. No enlarged lymph nodes. BLADDER: Unremarkable. REPRODUCTIVE: Large pedunculated fibroids are again demonstrated. BONES: No acute fracture. OTHER FINDINGS: The report concurs with the preliminary [facility] report IMPRESSION: There has been repair of the ventral hernia demonstrated previously. Subcutaneous edema can be seen in this area as well as several small fluid collections the largest measuring 22 x 44 mm. These could represent seromas. Abscess cannot be ruled out. There is no air within these collections to suggest abscess. There is a small amount of subcutaneous air extending to the skin surface
[2018-09-05] MEDS: Enoxaparin 40 mg Syringe SC SCH (10:26)
[2018-09-05] MEDS ORDERED: Arformoterol 15 mcg/2 ml Inh Sol IH ONE (10:30)
[2018-09-05] MEDS ORDERED: Budesonide 0.5 mg/2 ml Inhal Susp UD IH ONE (10:45)
[2018-09-05 15:15] VITALS: BMI 46.9
[2018-09-05] MEDS ORDERED: Pneumococcal 23-Valent Vaccine IM ONE (15:15)
[2018-09-05] MEDS ORDERED: Influenza Vaccine 60 mcg/0.5 mL SYR (4YR UP) IM ONE (15:15)
[2018-09-05] MEDS ORDERED: Levalbuterol 0.63 MG/3 ML Inhal Soln UD IH PRN (15:20)
[2018-09-05] MEDS ORDERED: Vancomycin 500 mg Inj IVPB SCH (17:00)
[2018-09-05] MEDS: Piperacillin/Tazobact 3.375 gm 100 ML IVPB SCH (20:59)
[2018-09-05] MEDS: Budesonide 0.5 mg/2 ml Inhal Susp UD IH SCH (21:32)
[2018-09-05] MEDS: Arformoterol 15 mcg/2 ml Inh Sol IH SCH (21:32)
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
[2018-09-06] MEDS: Piperacillin/Tazobact 3.375 gm 100 ML IVPB SCH ×2 (06:14→14:54)
[2018-09-06] MEDS: Oxycodone/Acetaminophen 5/325 mg Tab PO PRN ×3 (06:14→20:24)
[2018-09-06] MEDS: Pantoprazole 40 mg EC Tab PO SCH (06:14)
[2018-09-06 07:31] LABS: BASO # 0.04 K/mm3 (0.0-2.0); BASO % 0.4 % (0.0-3.0); EOS # 0.4 (0.0-0.7); EOS % 3.9 % (1.5-5.0); GRAN # 6.58 (1.4-6.5); GRAN % 66.2 % (50.0-68.0); HEMOGLOBIN 12.3 g/dL (12.0-16.0); LYMPH # 2.5 (1.2-3.4); LYMPH % 24.7 % (22.0-35.0); MEAN CELL VOLUME 83.9 fl (80.0-105.0); MEAN CORPUSCULAR HEMOGLOBIN 26.4 pg (25.0-35.0); MEAN CORPUSCULAR HGB CONC 31.5 g/dl (31.0-37.0); MEAN PLATELET VOLUME 8.6 fl (7.0-11.0); MONO # 0.5 (0.1-0.6); MONO % 4.8 % (1.0-6.0); RBC 4.66 10^6/uL (3.5-6.1); RED CELL DISTRIBUTION WIDTH 13.6 % (11.5-14.5)
[2018-09-06] MEDS: Budesonide 0.5 mg/2 ml Inhal Susp UD IH SCH ×2 (07:37→23:23)
[2018-09-06] MEDS: Arformoterol 15 mcg/2 ml Inh Sol IH SCH ×2 (07:37→23:19)
[2018-09-06 08:08] LABS: ALB/GLOB RATIO 0.9 (1.1-1.8); ALBUMIN 3.7 g/dL (3.0-4.8); ALT/SGPT 24 U/L (7-56); AST/SGOT 24 U/L (14-36); BLOOD UREA NITROGEN 10 mg/dL (7-21); CALCIUM 8.9 mg/dL (8.4-10.5); GFR NON-AFRICAN AMERICAN > 60
[2018-09-06] MEDS: Enoxaparin 40 mg Syringe SC SCH (09:46)
[2018-09-06 14:52] VITALS: TEMP 98
--- NOTE | 2018-09-06 15:24 | CP.PCM.PN ---
<Filemon Pires - Last Filed: 09/06/18 15:44> Subjective - Date & Time of Evaluation Date of Evaluation: 09/06/18 Time of Evaluation: 06:00 - Subjective Subjective: Pt seen and examined this morning at bedside. Pt reports abdominal pain, denies fever/chills, or other signs of infection. Objective - Vital Signs/Intake and Output Vital Signs (last 24 hours): Temp Pulse Resp BP Pulse Ox 98 F 89 20 147/95 H 96 09/06/18 14:00 09/06/18 14:00 09/06/18 14:00 09/06/18 14:00 09/06/18 14:00 Intake and Output: 09/06/18 09/06/18 06:59 18:59 Intake Total 180 Balance 180 - Medications Medications: Current Medications Acetaminophen (Tylenol 325mg Tab) 650 mg PO Q6H PRN PRN Reason: Fever >100.4 F Last Admin: 09/05/18 19:53 Dose: 650 mg Albuterol/Ipratropium (Duoneb 3 Mg/0.5 Mg (3 Ml) Ud) 3 ml IH [id number] PRN PRN Reason: Shortness of Breath Arformoterol Tartrate (Brovana) 15 mcg IH [id number] [facility] Last Admin: 09/06/18 07:37 Dose: 15 mcg Budesonide (Pulmicort Respules) 0.5 mg IH [id number] [facility] Last Admin: 09/06/18 07:37 Dose: 0.5 mg Enoxaparin Sodium (Lovenox) 40 mg SC DAILY [facility]; Protocol Last Admin: 09/06/18 09:46 Dose: 40 mg Vancomycin HCl 1.25 gm/ Sodium (Chloride) 250 mls @ 167 mls/hr IVPB Q12H [facility] Stop: 09/12/18 17:01 Last Admin: 09/06/18 04:42 Dose: 167 mls/hr Piperacillin Sod/Tazobactam Sod (Zosyn 3.375 In Ns 100ml) 100 mls @ 25 mls/hr IVPB Q8 [facility]; Protocol Last Admin: 09/06/18 14:54 Dose: 25 mls/hr Levalbuterol HCl (Xopenex) 0.63 mg IH [id number] PRN PRN Reason: Shortness of Breath Nicotine (Nicoderm Cq) 1 patch TD DAILY [facility] Last Admin: 09/06/18 09:47 Dose: 1 patch Oxycodone/Acetaminophen (Percocet 5/325 Mg Tab) 0.5 tab PO Q6 PRN PRN Reason: Pain, severe (8-10) Stop: 09/08/18 05:25 Last Admin: 09/06/18 14:52 Dose: 0.5 tab Pantoprazole Sodium (Protonix Ec Tab) 40 mg PO 0600 [facility] Last Admin: 09/06/18 06:14 Dose: 40 mg - Labs Labs: 09/06/18 07:00 09/06/18 07:00 - Constitutional Appears: No Acute Distress - Head Exam Head Exam: ATRAUMATIC, NORMOCEPHALIC - Eye Exam Eye Exam: EOMI - ENT Exam ENT Exam: Mucous Membranes Moist - Neck Exam Neck Exam: Full ROM - Respiratory Exam Respiratory Exam: Clear to Ausculation Bilateral, NORMAL BREATHING PATTERN. absent: Respiratory Distress - Cardiovascular Exam Cardiovascular Exam: RRR, +S1, +S2. absent: Diastolic murmur, Murmur - GI/Abdominal Exam GI & Abdominal Exam: Soft, Normal Bowel Sounds - Extremities Exam Extremities Exam: Full ROM. absent: Pedal Edema - Neurological Exam Neurological Exam: Alert, Awake, Oriented x3 - Psychiatric Exam Psychiatric exam: Normal Affect, Normal Mood - Skin Skin Exam: Dry, Intact, Warm Assessment and Plan - Assessment and Plan (Free Text) Assessment: Pt is a 28yo female with a PMH of asthma, tobacco use disorder, and ventral hernia who presents to [facility] after repair of her ventral hernia by Dr Tobar (08/26/18) Plan: Cellulitis, Seroma at surgical site - wound culture NGTD - Blood cultures NGTD - continue vanc and zosyn - percocet for pain control - ID consulted, Dr Keenan rec vanc and zosykendrick, local wound care per surgery, will be ready for discharge after cultures have had no growth for 48hr - Surgery consulted, no further surgical intervention at this time Obesity - HA1C 6.4 - lipid panel Trig 244, TC 148, LDL 65, HDL 37 - TSH 2.33 - Free T4 1.31 - dietary consult Asthma - duonebs PRN - encourage smoking cessation Ppx - lovenox - protonix Pt seen, examined, assessment and plan discussed with Dr Lisa Pires PGY1, Internal Medicine Resident <Lisa Scott R - Last Filed: 09/08/18 16:42> Objective - Vital Signs/Intake and Output Vital Signs (last 24 hours): Temp Pulse Resp BP Pulse Ox 98 F 70 18 120/71 96 09/07/18 06:00 09/07/18 06:00 09/07/18 06:00 09/07/18 06:00 09/07/18 06:00 - Labs Labs: 09/07/18 06:15 09/07/18 06:15 Attending/Attestation - Attestation I have personally seen and examined this patient.: Yes I have fully participated in the care of the patient.: Yes I have reviewed all pertinent clinical information, including history, physical exam and plan: Yes Notes (Text): Patient seen and examined by me with resident at 12:10PM on 09/06/18. Case including HPI, physical exam, and assessment and plan discussed with resident. Agree with above with following additions/corrections. Patient is a 28-year-old female with past medical history significant for tobacco abuse, mild intermittent asthma, and recent repair of incisional inca rcerated ventral hernia that presented to the emergency room with abdominal pain and discharge from surgical site. Patient states that she is feeling better today. States she did not noticed drainage today. Still with some abdominal pain around incision site. Patient denies chest pain or shortness of breath. Denies any nausea or vomiting. Tolerating diet. No headaches or dizziness. No lightheadedness. No fevers or chills. No dysuria. Physical exam: General: Awake and alert lying in bed in no acute distress. HEENT: Normocephalic, atraumatic. Extraocular muscles intact, pupils equal and reactive, no scleral icterus. Oropharynx is pink moist. Neck is supple. Cardiovascular: Regular rhythm. Normal S1 and S2. No murmurs, rubs, or gallops appreciated Pulmonary: Normal respiratory effort. No rhonchi, rales, or wheezing appreciated Gastrointestinal: Soft, nondistended. Positive tenderness around wound site. Steri strips in place. Dressing clean, dry, and intact. Positive bowel sounds all 4 quadrants. No guarding. Musculoskeletal: Moves all extremities. No calf tenderness. No edema. Central nervous system: AAO x 3, CN 2-12 grossly intact. Dermatologic: Skin warm and dry. Assessment and plan: Patient is a 28-year-old female with past medical history significant for tobacco abuse, mild intermittent asthma, and recent repair of incisional incarcerated ventral hernia that presented to the emergency room with abdominal pain and discharge from surgical site. 1. Abdominal wound. CT abdomen and pelvis per radiologist showed there has been repair of the ventral hernia demonstrated previously, subcutaneous edema can be seen in the area as well as several small fluid collections the largest measuring 22 x 44 mm, these could represent several months, there is no air within these collections to suggest abscess, there is a small amount of subcutaneous air extending to the skin surface. Seroma drained in the emergency room by surgical team. Surgical team following, recommendations appreciated. ID following, recommendations appreciated. Continue antibiotics as per ID. Leukocytosis resolved. Patient afebrile. Continue warm compresses. 2. Fibroids and pulmonary nodule on CT at last admission. Fibroids redemonstrated on CT abd/pelvis this admission. Patient was advised at length to follow up with primary care doctor or company laborer last visit. Patient states she did not do this. Patient again advised to follow up. Appointment made for patient out [facility] clinic. Importance of compliance and follow up discussed with patient. 3. Diarrhea. Resolved. Continue to monitor. 4. Obesity. Patient counseled on diet and exercise. Case discussed in detail with patient regarding current diagnosis and treatment plan. All questions answered.
--- NOTE | 2018-09-06 17:50 | CP.PCM.PN ---
Subjective - Date & Time of Evaluation Date of Evaluation: 09/06/18 Time of Evaluation: 15:15 - Subjective Subjective: Infectious Disease Follow Up: September 06, 2018 28 yo female with incarcerated ventral hernia repaired on 08/26/2018 complaining of pain and drainage from incision site. Patient was on Cipro and Flagyl as an outpatient. The patient PMHx includes Asthma and tobacco use. Cultures pending. Currently on IV Vancomycin and Zosyn for antibiotic treatment. Cultures negative at 24 hours. Mild leukocytosis. Objective - Vital Signs/Intake and Output Vital Signs (last 24 hours): Temp Pulse Resp BP Pulse Ox 98 F 89 20 147/95 H 96 09/06/18 14:00 09/06/18 14:00 09/06/18 14:00 09/06/18 14:00 09/06/18 14:00 Intake and Output: 09/06/18 09/06/18 06:59 18:59 Intake Total 180 Balance 180 - Medications Medications: Current Medications Acetaminophen (Tylenol 325mg Tab) 650 mg PO Q6H PRN PRN Reason: Fever >100.4 F Last Admin: 09/05/18 19:53 Dose: 650 mg Albuterol/Ipratropium (Duoneb 3 Mg/0.5 Mg (3 Ml) Ud) 3 ml IH [id number] PRN PRN Reason: Shortness of Breath Arformoterol Tartrate (Brovana) 15 mcg IH [id number] [facility] Last Admin: 09/06/18 07:37 Dose: 15 mcg Budesonide (Pulmicort Respules) 0.5 mg IH [id number] [facility] Last Admin: 09/06/18 07:37 Dose: 0.5 mg Enoxaparin Sodium (Lovenox) 40 mg SC DAILY [facility]; Protocol Last Admin: 09/06/18 09:46 Dose: 40 mg Vancomycin HCl 1.25 gm/ Sodium (Chloride) 250 mls @ 167 mls/hr IVPB Q12H [facility] Stop: 09/12/18 17:01 Last Admin: 09/06/18 04:42 Dose: 167 mls/hr Piperacillin Sod/Tazobactam Sod (Zosyn 3.375 In Ns 100ml) 100 mls @ 25 mls/hr IVPB Q8 [facility]; Protocol Last Admin: 09/06/18 14:54 Dose: 25 mls/hr Levalbuterol HCl (Xopenex) 0.63 mg IH [id number] PRN PRN Reason: Shortness of Breath Nicotine (Nicoderm Cq) 1 patch TD DAILY [facility] Last Admin: 09/06/18 09:47 Dose: 1 patch Oxycodone/Acetaminophen (Percocet 5/325 Mg Tab) 0.5 tab PO Q6 PRN PRN Reason: Pain, severe (8-10) Stop: 09/08/18 05:25 Last Admin: 09/06/18 14:52 Dose: 0.5 tab Pantoprazole Sodium (Protonix Ec Tab) 40 mg PO 0600 [facility] Last Admin: 09/06/18 06:14 Dose: 40 mg - Labs Labs: 09/06/18 07:00 09/06/18 07:00 - Constitutional Appears: Non-toxic, No Acute Distress - Head Exam Head Exam: ATRAUMATIC, NORMOCEPHALIC - Eye Exam Eye Exam: EOMI, PERRL Pupil Exam: NORMAL ACCOMODATION, PERRL - ENT Exam ENT Exam: Mucous Membranes Moist, Normal External Ear Exam, TM's Normal Bilaterally - Neck Exam Neck Exam: Full ROM, Normal Inspection - Respiratory Exam Respiratory Exam: Clear to Ausculation Bilateral, NORMAL BREATHING PATTERN. absent: Rales, Rhonchi, Wheezes - Cardiovascular Exam Cardiovascular Exam: REGULAR RHYTHM, RRR, +S1, +S2 - GI/Abdominal Exam GI & Abdominal Exam: Distended, Soft, Tenderness, Normal Bowel Sounds Additional comments: midline incision site erythematous. Serosaguinous drainage. - Extremities Exam Extremities Exam: Full ROM, Normal Inspection - Neurological Exam Neurological Exam: Alert, Awake, CN II-XII Intact, Oriented x3 - Psychiatric Exam Psychiatric exam: Normal Affect, Normal Mood - Skin Skin Exam: Intact, Normal Color Additional comments: As above. Assessment and Plan - Assessment and Plan (Free Text) Assessment: 28 yo female with cellulitis and seroma at site of ventricular hernia repair. S/P I&D. Started on IV Vancomycin and Zosyn for antibiotic coverage. Supportive care. Local wound care as per surgery. Mild leukocytosis. Afebrile. If cultures negative at 48 hours, can utilize Keflex 500mg TID and Flagyl 500mg TID for 14 days on discharge. Thank you for allowing me to participate in the care of the patient, we will follow with you.
--- NOTE | 2018-09-06 18:27 | CP.PCM.PN ---
Subjective - Date & Time of Evaluation Date of Evaluation: 09/06/18 Time of Evaluation: 11:05 - Subjective Subjective: Surgery Progress note- Dr. Chappell Covering for Dr. Tobar Patient seen and examined at bedside. Abd pain continuing to improved around incision. Patient having minimal serous drainage from middle of wound. No erythema noted. Pained w/ Betadine. Tolerating regular diet. + flatus and BM. denies nausea, vomiting, fevers, chills. Objective - Vital Signs/Intake and Output Vital Signs (last 24 hours): Temp Pulse Resp BP Pulse Ox 98 F 89 20 147/95 H 96 09/06/18 14:00 09/06/18 14:00 09/06/18 14:00 09/06/18 14:00 09/06/18 14:00 Intake and Output: 09/06/18 09/06/18 06:59 18:59 Intake Total 180 Balance 180 - Medications Medications: Current Medications Acetaminophen (Tylenol 325mg Tab) 650 mg PO Q6H PRN PRN Reason: Fever >100.4 F Last Admin: 09/05/18 19:53 Dose: 650 mg Albuterol/Ipratropium (Duoneb 3 Mg/0.5 Mg (3 Ml) Ud) 3 ml IH [id number] PRN PRN Reason: Shortness of Breath Arformoterol Tartrate (Brovana) 15 mcg IH [id number] [facility] Last Admin: 09/06/18 07:37 Dose: 15 mcg Budesonide (Pulmicort Respules) 0.5 mg IH [id number] [facility] Last Admin: 09/06/18 07:37 Dose: 0.5 mg Enoxaparin Sodium (Lovenox) 40 mg SC DAILY [facility]; Protocol Last Admin: 09/06/18 09:46 Dose: 40 mg Vancomycin HCl 1.25 gm/ Sodium (Chloride) 250 mls @ 167 mls/hr IVPB Q12H [facility] Stop: 09/12/18 17:01 Last Admin: 09/06/18 04:42 Dose: 167 mls/hr Piperacillin Sod/Tazobactam Sod (Zosyn 3.375 In Ns 100ml) 100 mls @ 25 mls/hr IVPB Q8 [facility]; Protocol Last Admin: 09/06/18 14:54 Dose: 25 mls/hr Levalbuterol HCl (Xopenex) 0.63 mg IH [id number] PRN PRN Reason: Shortness of Breath Nicotine (Nicoderm Cq) 1 patch TD DAILY [facility] Last Admin: 09/06/18 09:47 Dose: 1 patch Oxycodone/Acetaminophen (Percocet 5/325 Mg Tab) 0.5 tab PO Q6 PRN PRN Reason: Pain, severe (8-10) Stop: 09/08/18 05:25 Last Admin: 09/06/18 14:52 Dose: 0.5 tab Pantoprazole Sodium (Protonix Ec Tab) 40 mg PO 0600 [facility] Last Admin: 09/06/18 06:14 Dose: 40 mg - Labs Labs: 09/06/18 07:00 09/06/18 07:00 - Constitutional Appears: Non-toxic, No Acute Distress, Other (Obese) - Head Exam Head Exam: ATRAUMATIC - Eye Exam Eye Exam: EOMI. absent: Scleral icterus - ENT Exam ENT Exam: Mucous Membranes Moist - Respiratory Exam Respiratory Exam: NORMAL BREATHING PATTERN. absent: Accessory Muscle Use, Respiratory Distress - Cardiovascular Exam Cardiovascular Exam: +S1, +S2. absent: Bradycardia, Tachycardia - GI/Abdominal Exam GI & Abdominal Exam: Soft, Tenderness (mildly tender around incision. No erythema or purulent discharge). absent: Distended, Guarding, Rigid - Neurological Exam Neurological Exam: Alert, Awake, Oriented x3 - Psychiatric Exam Psychiatric exam: Normal Affect - Skin Skin Exam: Intact, Normal Color Assessment and Plan - Assessment and Plan (Free Text) Assessment: 28F s/p ventral hernia repair 08/26/18, presenting w. superficial SSI Plan: - warm compressed 20min TID - abx per ID - cleared for discharge from a surgical stand point. follow up in clinic - No Further surgical intervention at this time PGY2
[2018-09-06 22:39] VITALS: RESP 18
[2018-09-07 07:11] LABS: BASO # 0.03 K/mm3 (0.0-2.0); BASO % 0.3 % (0.0-3.0); EOS # 0.4 (0.0-0.7); EOS % 3.1 % (1.5-5.0); GRAN # 7.28 (1.4-6.5); HEMOGLOBIN 12.6 g/dL (12.0-16.0); LYMPH % 26.2 % (22.0-35.0); MEAN CELL VOLUME 83.2 fl (80.0-105.0); MEAN CORPUSCULAR HEMOGLOBIN 26.4 pg (25.0-35.0); MEAN CORPUSCULAR HGB CONC 31.7 g/dl (31.0-37.0); MEAN PLATELET VOLUME 8.5 fl (7.0-11.0); MONO # 0.7 (0.1-0.6); MONO % 6.4 % (1.0-6.0); RBC 4.77 10^6/uL (3.5-6.1); RED CELL DISTRIBUTION WIDTH 13.6 % (11.5-14.5); WHITE BLOOD COUNT 11.4 10^3/uL (4.5-11.0)
[2018-09-07 07:24] LABS: ALB/GLOB RATIO 0.9 (1.1-1.8); ALBUMIN 3.8 g/dL (3.0-4.8); ALT/SGPT 26 U/L (7-56); AST/SGOT 24 U/L (14-36); BLOOD UREA NITROGEN 11 mg/dL (7-21); CALCIUM 8.7 mg/dL (8.4-10.5); GFR NON-AFRICAN AMERICAN > 60
[2018-09-07 07:36] VITALS: BP 120/71; PULSE 70; O2SAT 96
[2018-09-07] MEDS: Pantoprazole 40 mg EC Tab PO SCH (07:58)
[2018-09-07] MEDS: Piperacillin/Tazobact 3.375 gm 100 ML IVPB SCH ×3 (07:58→15:06)
[2018-09-07] MEDS: Arformoterol 15 mcg/2 ml Inh Sol IH SCH (08:24)
[2018-09-07] MEDS: Budesonide 0.5 mg/2 ml Inhal Susp UD IH SCH (08:25)
[2018-09-07] MEDS: Oxycodone/Acetaminophen 5/325 mg Tab PO PRN (10:43)
[2018-09-07] MEDS: Enoxaparin 40 mg Syringe SC SCH (10:44)
--- NOTE | 2018-09-07 14:21 | CP.PCM.PN ---
Subjective - Date & Time of Evaluation Date of Evaluation: 09/07/18 Time of Evaluation: 13:00 - Subjective Subjective: Infectious Disease Follow Up: September 06, 2018 28 yo female with incarcerated ventral hernia repaired on 08/26/2018 complaining of pain and drainage from incision site. Patient was on Cipro and Flagyl as an outpatient. The patient PMHx includes Asthma and tobacco use. Cultures pending. Currently on IV Vancomycin and Zosyn for antibiotic treatment. Cultures negative showing mild gram positive cocci. Mild leukocytosis. Abdominal pain decreased. Erythema at wound site. Objective - Vital Signs/Intake and Output Vital Signs (last 24 hours): Temp Pulse Resp BP Pulse Ox 98 F 70 18 120/71 96 09/07/18 06:00 09/07/18 06:00 09/07/18 06:00 09/07/18 06:00 09/07/18 06:00 Intake and Output: 09/07/18 09/07/18 06:59 18:59 Intake Total 240 Balance 240 - Medications Medications: Current Medications Acetaminophen (Tylenol 325mg Tab) 650 mg PO Q6H PRN PRN Reason: Fever >100.4 F Last Admin: 09/07/18 01:17 Dose: 650 mg Albuterol/Ipratropium (Duoneb 3 Mg/0.5 Mg (3 Ml) Ud) 3 ml IH [id number] PRN PRN Reason: Shortness of Breath Arformoterol Tartrate (Brovana) 15 mcg IH [id number] [facility] Last Admin: 09/07/18 08:24 Dose: 15 mcg Budesonide (Pulmicort Respules) 0.5 mg IH [id number] [facility] Last Admin: 09/07/18 08:25 Dose: 0.5 mg Enoxaparin Sodium (Lovenox) 40 mg SC DAILY [facility]; Protocol Last Admin: 09/07/18 10:44 Dose: 40 mg Vancomycin HCl 1.25 gm/ Sodium (Chloride) 250 mls @ 167 mls/hr IVPB Q12H [facility] Stop: 09/12/18 17:01 Last Admin: 09/07/18 04:27 Dose: 167 mls/hr Piperacillin Sod/Tazobactam Sod (Zosyn 3.375 In Ns 100ml) 100 mls @ 25 mls/hr IVPB Q8 [facility]; Protocol Last Admin: 09/07/18 07:58 Dose: 25 mls/hr Levalbuterol HCl (Xopenex) 0.63 mg IH [id number] PRN PRN Reason: Shortness of Breath Nicotine (Nicoderm Cq) 1 patch TD DAILY [facility] Last Admin: 09/07/18 10:45 Dose: 1 patch Oxycodone/Acetaminophen (Percocet 5/325 Mg Tab) 0.5 tab PO Q6 PRN PRN Reason: Pain, severe (8-10) Stop: 09/08/18 05:25 Last Admin: 09/07/18 10:43 Dose: 0.5 tab Pantoprazole Sodium (Protonix Ec Tab) 40 mg PO 0600 [facility] Last Admin: 09/07/18 07:58 Dose: 40 mg - Labs Labs: 09/07/18 06:15 09/07/18 06:15 - Constitutional Appears: Non-toxic, No Acute Distress, Chronically Ill - Head Exam Head Exam: ATRAUMATIC, NORMOCEPHALIC - Eye Exam Eye Exam: EOMI, PERRL Pupil Exam: NORMAL ACCOMODATION, PERRL - ENT Exam ENT Exam: Mucous Membranes Moist, Normal External Ear Exam, TM's Normal Bilaterally - Neck Exam Neck Exam: Full ROM, Normal Inspection - Respiratory Exam Respiratory Exam: Clear to Ausculation Bilateral, NORMAL BREATHING PATTERN. absent: Rales, Rhonchi, Wheezes - Cardiovascular Exam Cardiovascular Exam: REGULAR RHYTHM, RRR, +S1, +S2 - GI/Abdominal Exam GI & Abdominal Exam: Soft, Normal Bowel Sounds. absent: Distended, Tenderness Additional comments: midline incision site erythematous. Serosaguinous drainage. pain significantly decreased. - Extremities Exam Extremities Exam: Full ROM, Normal Inspection - Neurological Exam Neurological Exam: Alert, Awake, CN II-XII Intact, Oriented x3 - Psychiatric Exam Psychiatric exam: Normal Affect, Normal Mood - Skin Skin Exam: Intact, Normal Color Additional comments: As above... including abdominal incision site. Assessment and Plan - Assessment and Plan (Free Text) Assessment: 28 yo female with cellulitis and seroma at site of ventricular hernia repair. S/P I&D. Started on IV Vancomycin and Zosyn for antibiotic coverage. Supportive care. Local wound care as per surgery. Mild leukocytosis. Afebrile. If cultures negative at 48 hours, can utilize Keflex 500mg TID and Flagyl 500mg TID for 14 days on discharge. Thank you for allowing me to participate in the care of the patient, we will follow with you.
--- NOTE | 2018-09-07 16:18 | CP.PCM.DIS ---
Provider - Provider Date of Admission: 09/07/18 08:20 Attending physician: Lisa Scott DO Primary care physician: LALA PRIMARY CARE PROVIDER Consults: 09/05/18 05:19 Physician Consult Routine Comment: Consulting Provider: Marcos Keenan Consulting Physician: Marcos Keenan Reason for Consult: surgical wound infection 09/05/18 05:20 Physician Consult Routine Comment: Consulting Provider: Marcos Tobar Consulting Physician: Marcos Tobar Reason for Consult: seroma, ?I&D 09/05/18 15:15 Nursing Referral for Wound Care Routine Comment: VENTRAL HERNIA REPAIR OPENED WOUND COPIOUS DRAINAG Physician Instructions: Reason For Exam: EVALUATION Time Spent in preparation of Discharge (in minutes): 45 Diagnosis - Discharge Diagnosis (1) H/O ventral hernia repair Status: Chronic Priority: High (2) Obesity Status: Chronic Priority: Medium (3) Asthma Status: Chronic Priority: Medium Hospital Course - Lab Results Lab Results: Micro Results 09/05/18 06:06 Incision Site Gram Stain - Final 09/05/18 06:06 Incision Site Wound Culture - Preliminary Gram Positive Cocci 09/05/18 01:15 Blood Blood Culture - Preliminary NO GROWTH AFTER 48 HOURS 09/05/18 00:45 Blood Blood Culture - Preliminary NO GROWTH AFTER 48 HOURS Most Recent Lab Values WBC 11.4 10^3/uL (4.5-11.0) H 09/07/18 06:15 RBC 4.77 10^6/uL (3.5-6.1) 09/07/18 06:15 Hgb 12.6 g/dL (12.0-16.0) 09/07/18 06:15 Hct 39.7 % (36.0-48.0) 09/07/18 06:15 MCV 83.2 fl (80.0-105.0) 09/07/18 06:15 MCH 26.4 pg (25.0-35.0) 09/07/18 06:15 MCHC 31.7 g/dl (31.0-37.0) 09/07/18 06:15 RDW 13.6 % (11.5-14.5) 09/07/18 06:15 Plt Count 404 10^3/uL (120.0-450.0) 09/07/18 06:15 MPV 8.5 fl (7.0-11.0) 09/07/18 06:15 Gran % 64.0 % (50.0-68.0) 09/07/18 06:15 Lymph % (Auto) 26.2 % (22.0-35.0) 09/07/18 06:15 [place] % (Auto) 6.4 % (1.0-6.0) H 09/07/18 06:15 Eos % (Auto) 3.1 % (1.5-5.0) 09/07/18 06:15 Baso % (Auto) 0.3 % (0.0-3.0) 09/07/18 06:15 Gran # 7.28 (1.4-6.5) H 09/07/18 06:15 Lymph # (Auto) 3.0 (1.2-3.4) 09/07/18 06:15 [place] # (Auto) 0.7 (0.1-0.6) H 09/07/18 06:15 Eos # (Auto) 0.4 (0.0-0.7) 09/07/18 06:15 Baso # (Auto) 0.03 K/mm3 (0.0-2.0) 09/07/18 06:15 pO2 207 mm/Hg (30-55) H 09/05/18 05:48 VBG pH 7.43 (7.32-7.43) 09/05/18 05:48 VBG pCO2 39.0 (40-60) L 09/05/18 05:48 VBG HCO3 25.9 mmol/l (21-28) 09/05/18 05:48 VBG Total CO2 27.1 mmol.L (22-28) 09/05/18 05:48 VBG O2 Sat (Calc) 100.1 % (40-65) H 09/05/18 05:48 VBG Base Excess 1.5 mmol/L (0.0-2.0) 09/05/18 05:48 VBG Potassium 3.7 mmol/L (3.6-5.2) 09/05/18 05:48 Sodium 137.0 mmol/L (132-148) 09/05/18 05:48 Chloride 107.0 mmol/L (98-107) 09/05/18 05:48 Glucose 117 mg/dl (65-105) H 09/05/18 05:48 Lactate 1.2 mmol/L (0.7-2.1) 09/05/18 05:48 FiO2 21.0 % 09/05/18 05:48 Sodium 138 mmol/L (132-148) 09/07/18 06:15 Potassium 3.9 mmol/L (3.6-5.0) 09/07/18 06:15 Chloride 105 mmol/L (98-107) 09/07/18 06:15 Carbon Dioxide 27 mmol/L (21-33) 09/07/18 06:15 Anion Gap 10 (10-20) 09/07/18 06:15 BUN 11 mg/dL (7-21) 09/07/18 06:15 Creatinine 0.6 mg/dl (0.7-1.2) L 09/07/18 06:15 Est GFR ( Amer) > 60 09/07/18 06:15 Est GFR (Non-Af Amer) > 60 09/07/18 06:15 Random Glucose 110 mg/dL (70-110) 09/07/18 06:15 Hemoglobin A1c 6.4 % (4.2-6.5) 09/05/18 05:48 Calcium 8.7 mg/dL (8.4-10.5) 09/07/18 06:15 Total Bilirubin 0.2 mg/dL (0.2-1.3) 09/07/18 06:15 AST 24 U/L (14-36) 09/07/18 06:15 ALT 26 U/L (7-56) 09/07/18 06:15 Alkaline Phosphatase 81 U/L (38-126) 09/07/18 06:15 Total Protein 7.8 g/dL (5.8-8.3) 09/07/18 06:15 Albumin 3.8 g/dL (3.0-4.8) 09/07/18 06:15 Globulin 4.1 gm/dL 09/07/18 06:15 Albumin/Globulin Ratio 0.9 (1.1-1.8) L 09/07/18 06:15 Triglycerides 244 mg/dL (35-160) H 09/05/18 05:48 Cholesterol 148 mg/dL (130-200) 09/05/18 05:48 LDL Cholesterol Direct 65 mg/dL (0-129) 09/05/18 05:48 HDL Cholesterol 37 mg/dL (29-60) 09/05/18 05:48 Lipase 31 U/L (23-300) 09/05/18 05:48 Free T4 1.31 ng/dL (0.78-2.19) 09/05/18 05:48 TSH 3rd Generation 2.33 mIU/mL (0.46-4.68) 09/05/18 05:48 Venous Blood Potassium 3.7 mmol/L (3.6-5.2) 09/05/18 05:48 Urine Color Yellow (YELLOW) 09/05/18 00:30 Urine Appearance Sl cloudy (CLEAR) 09/05/18 00:30 Urine pH 8.0 (4.7-8.0) 09/05/18 00:30 Ur Specific [place] 1.025 (1.005-1.035) 09/05/18 00:30 Urine Protein 30 mg/dL (<30 mg/dL) H 09/05/18 00:30 Urine Glucose (UA) Negative mg/dL (NEGATIVE) 09/05/18 00:30 Urine Ketones Negative mg/dL (NEGATIVE) 09/05/18 00:30 Urine Blood Large (NEGATIVE) H 09/05/18 00:30 Urine Nitrate Negative (NEGATIVE) 09/05/18 00:30 Urine Bilirubin Negative (NEGATIVE) 09/05/18 00:30 Urine Urobilinogen 0.2 E.U./dL (<1 E.U./dL) 09/05/18 00:30 Ur Leukocyte Esterase Negative [place]/uL (NEGATIVE) 09/05/18 00:30 Urine RBC Tntc /hpf (0-2) H 09/05/18 00:30 Urine WBC 0 - 2 /hpf (0-6) 09/05/18 00:30 Ur Epithelial Cells 3 - 4 /hpf (0-5) 09/05/18 00:30 Urine Bacteria Rare /hpf (NONE) 09/05/18 00:30 - Hospital Course Hospital Course: Upon Arrival Pt is a 28yo female with a PMH of active smoker with asthma, recent repair of incisional ventral hernia that was incarcerated by Dr Tobar (08/26/18) verenice removed (08/29/18) c/o abdominal pain and discharge from surgical site. She is on cipro and flagyl day 6 toady. After verenice removed, pain become stronger, and much drainage with pus leaked from surgical wound, striking through dressings and staining her clothers. No noxious smell from the wounds. Hospitalization Pt was treated for a seroma. Wound cultures had light grow with GPC. Blood cultures NGTD. Pt was treated with vanc and zosyn. ID consulted, Dr Keenan who reccommened the pt be sent home with flagyl and keflex. Surgery was consulted, determined no indication for surgical intervention at this time. Discharge Pt advised to please follow up with the [facility] as currently scheduled for 09/11/[address] Clemons at 1:30pm. Please follow up with Dr. Tobar in clinic in 2 weeks for wound evaluation. Please take your new antibiotics as prescribed - Flagyl and Keflex, both three times a day for 6 more days (after today). - Date & Time of H&P Date of H&P: 09/07/18 Time of H&P: 07:00 Discharge Exam - Head Exam Head Exam: ATRAUMATIC, NORMOCEPHALIC - Eye Exam Eye Exam: EOMI - ENT Exam ENT Exam: Mucous Membranes Moist - Respiratory Exam Respiratory Exam: NORMAL BREATHING PATTERN, UNREMARKABLE. absent: Accessory Muscle Use, Respiratory Distress - Cardiovascular Exam Cardiovascular Exam: RRR, +S1, +S2. absent: Diastolic murmur, Systolic Murmur - GI/Abdominal Exam GI & Abdominal Exam: Normal Bowel Sounds, Tenderness Additional comments: bandage in place, clean dry and intact - Extremities Exam Extremities exam: full ROM - Neurological Exam Neurological exam: Alert, Oriented x3 - Psychiatric Exam Psychiatric exam: Normal Affect, Normal Mood - Skin Skin Exam: Dry, Intact, Warm Discharge Plan - Discharge Medications Prescriptions: Cephalexin [Keflex] 500 mg PO TID #18 capsule Metronidazole [Flagyl] 500 mg PO TID #18 tablet - Follow Up Plan Condition: FAIR Disposition: HOME/ ROUTINE Instructions: Acute Abdominal Pain (DC), Acute Abdominal Pain (GEN) Additional Instructions: 1. Please follow up with the [facility] as currently scheduled for 09/11/[address] Clemons at 1:30pm 2. Please follow up with Dr. Tobar in clinic in 2 weeks for wound evaluation 3. Please take your new antibiotics as prescribed - Flagyl and Keflex, both three times a day for 6 more days (after today). 4. If your symptoms return, please come to the nearest ED immediately Referrals: PCP,NO [Primary Care Provider] - Follow up with primary Marcos Tobar MD [Staff Provider] -
== END 2018-09-07 18:47 | disposition home or self-care (01) | DRG 721 ==
LOC: ED 22:44 → ERH 09-05 03:38 → 5RSO 09-05 13:47 → OBSVTOIN 09-07 08:20
PROVIDERS: ADMIT Hospitalist; ATTEND Hospitalist
PROC: 3E0F7GC Introduction of Other Therapeutic Substance into Respiratory Tract, Via Natural or Artificial Opening (ICD-10-PCS; principal; 2018-09-05)
DX: T81.41XA Infection following a procedure, superficial incisional surgical site, initial encounter (principal); L03.311 Cellulitis of abdominal wall; L76.34 Postprocedural seroma of skin and subcutaneous tissue following other procedure; J45.909 Unspecified asthma, uncomplicated; F17.210 Nicotine dependence, cigarettes, uncomplicated; E66.9 Obesity, unspecified; Y83.8 Other surgical procedures as the cause of abnormal reaction of the patient, or of later complication, without mention of misadventure at the time of the procedure